=== PATIENT | female | born 1965 | race Caucasian/White ===

== ENCOUNTER 2020-08-30 09:35 | Emergency (ER) | payer OTHER, MEDICAID, SELFPAY ==
[2020-08-30] VITALS (7 sets, daily range): BP systolic 119–133; BP diastolic 63–71; PULSE 53–95; RESP 16–24; TEMP 37.2–38.3; O2SAT 95–99; BMI 32.1
--- NOTE | 2020-08-30 09:39 | ED_ITS ---
HPI - General Adult General Chief complaint: Fever Stated complaint: fever, chills, headache, Time Seen by Provider: 08/30/20 09:39 Source: patient Mode of arrival: Ambulatory Limitations: no limitations History of Present Illness HPI narrative: Patient is a 54-year-old female here for evaluation because she states she has been ?sick for days ?she states she has a history of COPD. Also history of diabetes. States she cannot find her test strips for her diabetes but is still taking all of her medications. She also has issues with constipation and was constipated a couple days ago and started taking MiraLax. She states she had several very large bowel movements. She states that she can become ?ill? after having episodes such as this but this seems to be abnormal for her. She also feels like that she is having symptoms consistent with a urinary tract infection. Describes a headache and chills. No rashes. Related Data Home Medications Medication Instructions Recorded Confirmed albuterol sulfate 90 mcg/actuation INHALATION #8 gram 07/15/18 07/15/18 aerosol inhaler cetirizine 10 mg tablet PO #30 tab 07/15/18 07/15/18 duloxetine 30 mg capsule,delayed PO #30 cap 07/15/18 07/15/18 release fluticasone propionate 50 NASAL #16 gram 07/15/18 07/15/18 mcg/actuation nasal spray,suspension gabapentin 300 mg capsule PO #90 cap 07/15/18 07/15/18 glatiramer 40 mg/mL subcutaneous SUBCUT #12 ml 07/15/18 07/15/18 syringe meloxicam 7.5 mg tablet PO #60 tab 07/15/18 07/15/18 metformin 500 mg tablet PO #120 tab 07/15/18 07/15/18 Previous Rx's Medication Instructions Recorded eletriptan 40 mg tablet 40 mg PO ONCE #10 tab 07/15/18 rizatriptan 10 mg tablet 10 mg PO ONCE #10 tab 01/20/19 promethazine 25 mg tablet 6.25 mg PO Q6H PRN #20 tab 05/12/19 zonisamide 25 mg capsule 25 mg PO ONCE #120 cap 05/12/19 amoxicillin-pot clavulanate 1 tab PO BID 10 Days #20 tab 08/30/20 [Augmentin] Review of Systems Constitutional Constitutional: Reports chills, Reports fatigue, Reports fever(s), Reports headache(s), Reports lethargy and Reports malaise Eyes Eyes: Denies change in vision ENT Ears, Nose, Mouth, and Throat: Reports headache(s) and Denies sore throat Cardiovascular Cardiovascular: Denies chest pain and Denies dyspnea Respiratory Respiratory: Reports cough and Denies dyspnea Gastrointestinal Gastrointestinal: Reports abdominal pain, Reports constipation, Reports nausea and Denies vomiting Genitourinary Genitourinary: Reports dysuria and Reports urinary urgency Genitourinary: Reports dysuria and Reports urinary urgency Musculoskeletal Musculoskeletal: Denies myalgias Integumentary/Breasts Skin/Breast: Denies lesions and Denies rash Neurologic Neurologic: Denies behavioral changes and Reports headache(s) Psychiatric Psychiatric: Denies behavioral changes Endocrine Endocrine: Reports fatigue Hematologic/Lymphatic On Anticoagulants: No Allergic/Immunologic Allergic/Immunologic: Denies urticaria Patient History Medical History COPD (chronic obstructive pulmonary disease) Diabetes Social History Smoking Status: Current every day smoker Smoking Status: Current every day smoker Exam Initial Vital Signs Initial Vital Signs: Vital Signs Temperature 99.2 F 08/30/20 09:49 Pulse Rate 53 L 08/30/20 09:49 Respiratory Rate 24 08/30/20 09:49 Blood Pressure 133/71 08/30/20 09:49 Pulse Oximetry 96 08/30/20 09:49 Const General: cooperative and comfortable Limitations: mental status not altered HENMT Head: normal to inspection and normocephalic Chest Chest: No tenderness Resp Effort & Inspection: normal respiratory effort Auscultation: clear to auscultation bilaterally Cardio Rate: regular rate Rhythm: regular rhythm GI Inspection: non-distended Palpation: soft, No firm and tender (Lower abdomen) Back/Spine/Pelvis Back: No CVA tenderness Skin Lesions: no lesions Rashes: no rashes Neuro General: patient alert, patient awake and patient oriented x3 Cognition: normal cognition Speech: speech normal Extrem General: normal to inspection and capillary refill normal Psych Appearance: grossly normal and disheveled Scores GCS [place] coma scale eye opening: Spontaneous [place] coma scale verbal response: Orientated [place] coma scale motor response: Obey commands [place] coma scale total score: 15 Course Orders Ordered: ED Orders 08/30/20 10:10 Complete Blood Count AUTO DIFF Stat Comprehensive Metabolic Panel Stat Ketones (Beta-Hydroxybutyrate) Stat Lipase Stat Magnesium Stat Phosphorous Stat 08/30/20 10:29 Urine Culture Stat 08/30/20 10:48 CT abdomen pelvis w con Stat Discontinued Medications Acetaminophen (Acetaminophen 325 Mg Tablet) 975 mg PO NOW ONE Stop: 08/30/20 13:16 Last Admin: 08/30/20 13:18 Dose: 975 mg Documented by: SHARLA Sodium Chloride (Normal Saline 0.9%) 1,000 mls @ 1,000 mls/hr IV BOLUS ONE Stop: 08/30/20 10:51 Last Infusion: 08/30/20 12:06 Dose: 0 mls/hr Documented by: Admin: 08/30/20 10:19 Dose: 1,000 mls/hr Documented by: SEKOU Ketorolac Tromethamine (Ketorolac 60 Mg/2 Ml Vial) 30 mg IV NOW ONE Stop: 08/30/20 09:53 Last Admin: 08/30/20 10:19 Dose: 30 mg Documented by: SEKOU Vital Signs Vital signs: Vital Signs - 8 hr 08/30/20 12:04 08/30/20 12:05 08/30/20 12:10 Temperature 98.9 F Pulse Rate 93 H 93 H Respiratory Rate Blood Pressure 119/63 Pulse Oximetry 96 95 08/30/20 13:18 08/30/20 13:20 Temperature 100.9 F H 100.9 F H Pulse Rate 95 H Respiratory Rate 16 Blood Pressure 130/63 Pulse Oximetry 99 Medical Decision Making Lab Data Lab results reviewed: Yes I reviewed the patient's lab results. Result diagrams: 08/30/20 10:10 08/30/20 10:10 Labs: Lab Results 08/30/20 08/30/20 08/30/20 Range/Units 09:40 09:50 10:10 WBC 8.8 (4.5-11.0) X10^3/uL RBC 3.78 L (4.0-5.2) X10^6/uL Hgb 11.3 L (12.0-16.0) g/dL Hct 33.6 L (36-46) % MCV 88.9 (80-100) fL MCH 29.9 (26-34) PG MCHC 33.7 (30-36) % RDW 13.0 (11.6-14.8) % Plt Count 165 (150-400) X10^3/uL Neut % (Auto) 83.1 H (50-75) % Lymph % (Auto) 6.8 L (25-40) % [place] % (Auto) 9.5 (3-14) % Eos % (Auto) 0.3 L (2-4) % Baso % (Auto) 0.3 (0-2) % Neut # (Auto) 7300 H (8482-1455) /uL Lymph # (Auto) 600 L (5705-7786) /uL [place] # (Auto) 800 (0-900) /uL Eos # (Auto) 0 (0-450) /uL Baso # (Auto) 0 (0-100) /uL Sodium (137-145) mmol/L Potassium (3.4-5.1) mmol/L Chloride (98-107) mmol/L Carbon Dioxide (22-32) mmol/L BUN (7-17) mg/dL Creatinine (0.52-1.04) mg/dL Estimated GFR (>60) mL/min BUN/Creatinine Ratio (6-22) Glucose (70-100) mg/dL Calcium (8.4-10.2) mg/dL Phosphorus (2.5-4.5) mg/dL Magnesium (1.6-2.3) mg/dL Total Bilirubin (0.2-1.3) mg/dL AST (14-36) IU/L ALT (<35) IU/L Alkaline Phosphatase (38-126) U/L Total Protein (6.3-8.2) g/dL Albumin (3.5-5.0) g/dL Globulin (1.7-4.1) g/dL Albumin/Globulin Ratio (1.0-2.8) Lipase (23-300) U/L Urine RBC 1-5/hpf (0-5/HPF) Urine WBC 10-30/hpf H (0-5/HPF) Ur Squamous Epith Cells 5-10 /hpf H (0-5/HPF) Urine Bacteria Moderate (10-30) H (None) Urine Yeast 0-1/hpf (None) Ur Culture Indicated? Cult not indicated Ketones (<0.27) mmol/L SARS-CoV-2 (PCR) Negative (Negative) 08/30/20 08/30/20 Range/Units 10:10 10:10 WBC (4.5-11.0) X10^3/uL RBC (4.0-5.2) X10^6/uL Hgb (12.0-16.0) g/dL Hct (36-46) % MCV (80-100) fL MCH (26-34) PG MCHC (30-36) % RDW (11.6-14.8) % Plt Count (150-400) X10^3/uL Neut % (Auto) (50-75) % Lymph % (Auto) (25-40) % [place] % (Auto) (3-14) % Eos % (Auto) (2-4) % Baso % (Auto) (0-2) % Neut # (Auto) (9772-1069) /uL Lymph # (Auto) (9218-1704) /uL [place] # (Auto) (0-900) /uL Eos # (Auto) (0-450) /uL Baso # (Auto) (0-100) /uL Sodium 129 L (137-145) mmol/L Potassium 4.3 (3.4-5.1) mmol/L Chloride 94 L (98-107) mmol/L Carbon Dioxide 26 (22-32) mmol/L BUN 16 (7-17) mg/dL Creatinine 1.22 H (0.52-1.04) mg/dL Estimated GFR 46.1 L (>60) mL/min BUN/Creatinine Ratio 13.1 (6-22) Glucose 519 H* (70-100) mg/dL Calcium 9.3 (8.4-10.2) mg/dL Phosphorus 3.6 (2.5-4.5) mg/dL Magnesium 1.5 L (1.6-2.3) mg/dL Total Bilirubin 0.5 (0.2-1.3) mg/dL AST 36 (14-36) IU/L ALT 36 H (<35) IU/L Alkaline Phosphatase 222 H (38-126) U/L Total Protein 6.8 (6.3-8.2) g/dL Albumin 3.5 (3.5-5.0) g/dL Globulin 3.3 (1.7-4.1) g/dL Albumin/Globulin Ratio 1.1 (1.0-2.8) Lipase 25 (23-300) U/L Urine RBC (0-5/HPF) Urine WBC (0-5/HPF) Ur Squamous Epith Cells (0-5/HPF) Urine Bacteria (None) Urine Yeast (None) Ur Culture Indicated? Ketones 0.09 (<0.27) mmol/L SARS-CoV-2 (PCR) (Negative) Point of Care Testing Glucose POC 417 Urine Dip Bedside Urine Glucose 1000 mg/dl Bedside Urine Bilirubin - Negative Bedside Urine Ketone - Negative Urine Specific [place] 1.010 Bedside Urine Occult Blood ++ Bedside Urine pH 6.0 Bedside Urine Protein + 30 Bedside Urine Urobilinogen - Negative Bedside Urine Nitrite - Negative Bedside Urine Leukocytes - Negative Esterase Point of care testing: Point of Care Testing Glucose POC 417 Urine Dip Bedside Urine Glucose 1000 mg/dl Bedside Urine Bilirubin - Negative Bedside Urine Ketone - Negative Urine Specific [place] 1.010 Bedside Urine Occult Blood ++ Bedside Urine pH 6.0 Bedside Urine Protein + 30 Bedside Urine Urobilinogen - Negative Bedside Urine Nitrite - Negative Bedside Urine Leukocytes - Negative Esterase Imaging Data CT scan - abdomen/pelvis: Radiologist's Impression: [address] [id number] Scan ReportSigned Patient: Mae Jolley#: [id number]: 1965Acct:[id number]/Sex: 54 / FDate of Service: 08/30/20Loc: EDAccession Number: [id number] Procedure: CT abdomen pelvis w con Ordering Provider: Francisco Gongora D.O. PROCEDURE: CT ABDOMEN PELVIS W CON INDICATIONS: Lower abdominal pain left side TECHNIQUE: After the administration of intravenous contrast, 5 mm thick sections acquired from the diaphragm to the symphysis. 5 mm coronal and sagittal reformats were acquired. For radiation dose reduction, the following was used: automated exposure control, adjustment of mA and/or kV according to patient size. COMPARISON: None. FINDINGS: Image quality: Excellent. ABDOMEN: Lung bases: Lung bases are clear. Heart size is normal. Solid organs: Liver is enlarged with steatosis. Gallbladder is unremarkable. Biliary system is non dilated. Pancreas enhances normally. Spleen is normal in size a nd enhancement. No adrenal nodules. Kidneys demonstrate mild perinephric stranding bilaterally, right greater than left. There is slight prominence of the renal collecting system on the right. There is a slight heterogeneous appearance of enhancement within the kidneys. Peritoneum and bowel: Bowel loops demonstrate normal wall thickness and caliber. No free fluid or air. Appendix is normal. Nodes and vessels: No retroperitoneal or mesenteric adenopathy by size criteria. Aorta and inferior vena cava are normal in size. Miscellaneous: No ventral hernias. PELVIS: Genitourinary: Bladder wall thickness is normal. Miscellaneous: No inguinal hernias or adenopathy. Bones: No suspicious bony lesions. No vertebral body compression fractures. IMPRESSION: 1. Mild stranding of the kidneys bilaterally with slight prominence of the renal collecting system on the right. While this could represent a recently passed stone on the right, bilateral stranding does raise suggestion of infection such as pyelonephritis, especially given questionable slight appearance of heterogeneous enhancement. Recommend clinical correlation and appropriate association with laboratory values. Dictated by: Faviola Quintero M.D. on 08/30/2020 at 10:10 Approved by: Faviola Quintero M.D. on 08/30/2020 at 10:50 [facility] Narrative Medical decision making narrative: Patient does have a benign exam. Her urinalysis has bacteria and white blood cells but also epi cells. CT scan shows stranding around bilateral kidneys. Given the findings of the CT scan and her urinalysis and her symptoms I feel treating with antibiotics is warranted. She does have multiple drug allergies. She states she can take Augmentin. A prescription was sent to the pharmacy of her choice. I feel a trial of oral antibiotics at home is warranted in her scenario although she was given strict return precautions. She expressed understanding and agreement. Discharge Plan Departure Patient Disposition: Home Clinical Impression: Urinary tract infection, Hyperglycemia Instructions: DI for Urinary Tract Infection (UTI) Activity Restrictions/Additional Instructions: Recommend that you take the antibiotics as directed. Also recommend that you take the rest your medicines as directed as well. Contact your primary provider for a follow-up. Return to the emergency department for any new or worsening symptoms Prescriptions: New amoxicillin-pot clavulanate [Augmentin] 875-125 mg tablet 1 tab PO BID 10 Days Qty: 20 RF: 0 No Action rizatriptan [Maxalt] 10 mg tablet 10 mg PO ONCE Qty: 10 RF: 2 zonisamide 25 mg capsule 25 mg PO ONCE Qty: 120 RF: 0 promethazine 25 mg tablet 6.25 mg PO Q6H PRN (Reason: nausea and vomiting) Qty: 20 RF: 2 meloxicam 7.5 mg tablet PO Qty: 60 RF: 0 ProAir HFA 90 mcg/actuation HFA aerosol inhaler INHALATION Qty: 8 RF: 0 fluticasone propionate 50 mcg/actuation spray,suspension NASAL Qty: 16 RF: 0 glatiramer 40 mg/mL syringe SUBCUT Qty: 12 RF: 0 duloxetine 30 mg capsule,delayed release(DR/EC) PO Qty: 30 RF: 0 gabapentin 300 mg capsule PO Qty: 90 RF: 0 cetirizine 10 mg tablet PO Qty: 30 RF: 0 metformin 500 mg tablet PO Qty: 120 RF: 0 eletriptan [Relpax] 40 mg tablet 40 mg PO ONCE Qty: 10 RF: 2 Referrals: Mami Morin FNP-C [Primary Care Provider] -
[2020-08-30 10:16] LABS: Bacteria Urine Moderate (10-30); RBC Urine 1-5/HPF (0-5/HPF); Squamous Epithelial Cell Urine 5-10 /HPF (0-5/HPF); WBC Urine 10-30/HPF (0-5/HPF)
[2020-08-30 10:17] LABS: Culture Indicated Urine Cult Not Indicated
[2020-08-30 10:18] LABS: Add Manual Diff / Slide Review NO; Basophils Absolute Auto 0 /uL (0-100); Basophils Percent Auto 0.3 % (0-2); Eosinophils Absolute Auto 0 /uL (0-450); Eosinophils Percent Auto 0.3 % (2-4); Hematocrit 33.6 % (36-46); Hemoglobin 11.3 g/dL (12.0-16.0); Lymphocytes Absolute Auto 600 /uL (1100-4500); Lymphocytes Percent Auto 6.8 % (25-40); Mean Corpuscular HGB Conc 33.7 % (30-36); Mean Corpuscular Hemoglobin 29.9 PG (26-34); Mean Corpuscular Volume 88.9 fL (80-100); Monocytes Absolute Auto 800 /uL (0-900); Monocytes Percent Auto 9.5 % (3-14); Neutrophils Absolute Auto 7300 /uL (1500-7000); Neutrophils Percent Auto 83.1 % (50-75); Platelet Count 165 X10^3/uL (150-400); Red Blood Cell Count 3.78 X10^6/uL (4.0-5.2); White Blood Cell Count 8.8 X10^3/uL (4.5-11.0)
[2020-08-30] MEDS: KETOROLAC 60 MG/2 ML VIAL 30 MG IV (10:19)
[2020-08-30] MEDS: SODIUM CHLORIDE 0.9% 1,000 ML 1000 ML IV (10:19)
[2020-08-30 10:20] LABS: COVID19 -Nasal RAPID Negative (Negative)
[2020-08-30 10:37] LABS: Alanine Aminotransferase 36 IU/L (<35); Albumin 3.5 g/dL (3.5-5.0); Albumin Globulin Ratio 1.1 (1.0-2.8); Alkaline Phosphatase 222 U/L (38-126); Aspartate Aminotransferase 36 IU/L (14-36); BUN Creatinine Ratio 13.1 (6-22); Bilirubin Total 0.5 mg/dL (0.2-1.3); Blood Urea Nitrogen 16 mg/dL (7-17); Calcium 9.3 mg/dL (8.4-10.2); Carbon Dioxide 26 mmol/L (22-32); Chloride 94 mmol/L (98-107); Estimated Glomerular Filt Rate 46.1 mL/min (>60); Globulin 3.3 g/dL (1.7-4.1); HEMOLYSIS < 15 (0-50); Lipase 25 U/L (23-300); Potassium 4.3 mmol/L (3.4-5.1); Sodium 129 mmol/L (137-145); Total Protein 6.8 g/dL (6.3-8.2)
[2020-08-30 10:38] LABS: Magnesium 1.5 mg/dL (1.6-2.3); Phosphorous 3.6 mg/dL (2.5-4.5)
[2020-08-30 10:40] LABS: Glucose 519 mg/dL (70-100); Ketones (Beta-Hydroxybutyrate) 0.09 mmol/L (<0.27)
--- NOTE | 2020-08-30 10:48 | DI.CT.S_ITS ---
PROCEDURE: CT ABDOMEN PELVIS W CON INDICATIONS: Lower abdominal pain left side TECHNIQUE: After the administration of intravenous contrast, 5 mm thick sections acquired from the diaphragm to the symphysis. 5 mm coronal and sagittal reformats were acquired. For radiation dose reduction, the following was used: automated exposure control, adjustment of mA and/or kV according to patient size. COMPARISON: None. FINDINGS: Image quality: Excellent. ABDOMEN: Lung bases: Lung bases are clear. Heart size is normal. Solid organs: Liver is enlarged with steatosis. Gallbladder is unremarkable. Biliary system is non dilated. Pancreas enhances normally. Spleen is normal in size and enhancement. No adrenal nodules. Kidneys demonstrate mild perinephric stranding bilaterally, right greater than left. There is slight prominence of the renal collecting system on the right. There is a slight heterogeneous appearance of enhancement within the kidneys. Peritoneum and bowel: Bowel loops demonstrate normal wall thickness and caliber. No free fluid or air. Appendix is normal. Nodes and vessels: No retroperitoneal or mesenteric adenopathy by size criteria. Aorta and inferior vena cava are normal in size. Miscellaneous: No ventral hernias. PELVIS: Genitourinary: Bladder wall thickness is normal. Miscellaneous: No inguinal hernias or adenopathy. Bones: No suspicious bony lesions. No vertebral body compression fractures. IMPRESSION: 1. Mild stranding of the kidneys bilaterally with slight prominence of the renal collecting system on the right. While this could represent a recently passed stone on the right, bilateral stranding does raise suggestion of infection such as pyelonephritis, especially given questionable slight appearance of heterogeneous enhancement. Recommend clinical correlation and appropriate association with laboratory values. Dictated by: Faviola Quintero M.D. on 08/30/2020 at 10:10 Approved by: Faviola Quintero M.D. on 08/30/2020 at 10:50
--- NOTE | 2020-08-30 11:52 | PC.NURSE ---
patient reports lower gum pain from wearing only her top dentures. she states this in a normal occurance and this time it hurts 11/12. top dentures not in place. lesoin is .7cm round raised blister like. provider notified.
[2020-08-30] MEDS: ACETAMINOPHEN 325 MG TABLET 975 MG PO (13:18)
== END 2020-08-30 13:21 | disposition home or self-care (01) ==
PROVIDERS: Emergency Provider Emergency Medicine; PCP Nurse Practitioner Family
DX: N39.0 Urinary tract infection, site not specified (principal); R73.9 Hyperglycemia, unspecified; R10.30 Lower abdominal pain, unspecified; Z20.822 Contact with and (suspected) exposure to COVID-19
CPT/HCPCS: 36415; 74177; 80053; 81003; 81015; 82009; 82962; 83690; 83735; 84100; 85025; 87077; 87086; 87186; 87635; 96361; 96374; 99284; C9803; J1885

== ENCOUNTER 2020-08-30 22:04 | Inpatient (IN) | payer MEDICAID, OTHER, SELFPAY ==
[2020-08-30] MEDS: PANTOPRAZOLE 40 MG VIAL IV (22:24)
[2020-08-30 22:25] LABS: Add Manual Diff / Slide Review NO; Basophils Absolute Auto 0 /uL (0-100); Basophils Percent Auto 0.4 % (0-2); Eosinophils Absolute Auto 0 /uL (0-450); Eosinophils Percent Auto 0.2 % (2-4); Hematocrit 30.5 % (36-46); Hemoglobin 10.4 g/dL (12.0-16.0); Lymphocytes Absolute Auto 800 /uL (1100-4500); Lymphocytes Percent Auto 7.5 % (25-40); Mean Corpuscular HGB Conc 33.9 % (30-36); Mean Corpuscular Hemoglobin 29.9 PG (26-34); Mean Corpuscular Volume 88.3 fL (80-100); Monocytes Absolute Auto 1100 /uL (0-900); Monocytes Percent Auto 10.2 % (3-14); Neutrophils Absolute Auto 8700 /uL (1500-7000); Neutrophils Percent Auto 81.7 % (50-75); Platelet Count 154 X10^3/uL (150-400); Red Blood Cell Count 3.46 X10^6/uL (4.0-5.2); Red Cell Distribution Width 13.5 % (11.6-14.8); White Blood Cell Count 10.7 X10^3/uL (4.5-11.0)
[2020-08-30] MEDS: SODIUM CHLORIDE 0.9% 1,000 ML 125 ML IV (22:25)
[2020-08-30 22:29] VITALS: BP 138/63; PULSE 89; RESP 20; TEMP 36.6; O2SAT 95
[2020-08-30 22:35] LABS: Lactate (Lactic Acid) 1.1 mmol/L (0.7-2.1)
[2020-08-30 22:36] LABS: Alanine Aminotransferase 29 IU/L (<35); Alkaline Phosphatase 180 U/L (38-126); Aspartate Aminotransferase 27 IU/L (14-36); BUN Creatinine Ratio 12.5 (6-22); Bilirubin Total 0.5 mg/dL (0.2-1.3); Blood Urea Nitrogen 16 mg/dL (7-17); Calcium 8.8 mg/dL (8.4-10.2); Carbon Dioxide 23 mmol/L (22-32); Chloride 98 mmol/L (98-107); Estimated Glomerular Filt Rate 43.6 mL/min (>60); Globulin 3.1 g/dL (1.7-4.1); Glucose 441 mg/dL (70-100); HEMOLYSIS < 15 (0-50); Potassium 3.9 mmol/L (3.4-5.1); Sodium 129 mmol/L (137-145); Total Protein 6.1 g/dL (6.3-8.2)
[2020-08-30 22:45] VITALS: PULSE 90; O2SAT 93
[2020-08-30 22:48] LABS: INR 1.3 (0.9-1.3); Prothrombin Time 14.9 SECONDS (10.1-12.7)
[2020-08-30 22:51] LABS: PTT Partial Thromboplastin Tim 30 SECONDS (26.4-36.2)
[2020-08-30 23:00] VITALS: BP 142/63; PULSE 90; O2SAT 92
--- NOTE | 2020-08-30 23:05 | ED.ABDPAIN ---
HPI - Abdominal Pain General Chief Complaint: Abdominal Pain Stated Complaint: Rt flank pain/ blood in stool Time Seen by Provider: 08/30/20 22:05 Source: patient Mode of arrival: EMS Limitations: no limitations History of Present Illness HPI narrative: 54-year-old female daily smoker with history of migraines and multiple sclerosis presents for the 2nd time today in the chief complaint of significant right-sided flank pain and poor appetite. She was seen and evaluated earlier in found to have elevated blood glucose and imaging suggesting pyelonephritis. She went home for a few hours and now states that she is having black stool, when she wipes and when she urinates. She denies any use of blood thinners or any significant alcohol history. She denies any Pepto-Bismol. She states her pain is still there and seemed to be worse when she moves and improves with rest. She states she has a poor appetite and admits to nausea but no vomiting MD complaint: abdominal pain and flank pain Onset (ago): hour(s) Pain Consistency: constant Location: R flank Severity: moderate Quality: cramping and aching Relieving factors: rest Exacerbating factors: movement Associated symptoms: nausea Related Data Home Medications Medication Instructions Recorded Confirmed albuterol sulfate 90 mcg/actuation INHALATION #8 gram 07/15/18 07/15/18 aerosol inhaler cetirizine 10 mg tablet PO #30 tab 07/15/18 07/15/18 duloxetine 30 mg capsule,delayed PO #30 cap 07/15/18 07/15/18 release fluticasone propionate 50 NASAL #16 gram 07/15/18 07/15/18 mcg/actuation nasal spray,suspension gabapentin 300 mg capsule PO #90 cap 07/15/18 07/15/18 glatiramer 40 mg/mL subcutaneous SUBCUT #12 ml 07/15/18 07/15/18 syringe meloxicam 7.5 mg tablet PO #60 tab 07/15/18 07/15/18 metformin 500 mg tablet PO #120 tab 07/15/18 07/15/18 Previous Rx's Medication Instructions Recorded eletriptan 40 mg tablet 40 mg PO ONCE #10 tab 07/15/18 rizatriptan 10 mg tablet 10 mg PO ONCE #10 tab 01/20/19 promethazine 25 mg tablet 6.25 mg PO Q6H PRN #20 tab 05/12/19 zonisamide 25 mg capsule 25 mg PO ONCE #120 cap 05/12/19 amoxicillin-pot clavulanate 1 tab PO BID 10 Days #20 tab 08/30/20 [Augmentin] Allergies Allergy/AdvReac Type Severity Reaction Status Date / Time acetaminophen [From Vicodin] Allergy Verified 08/30/20 23:18 cephalexin Allergy Verified 08/30/20 23:18 ciprofloxacin [From Cipro] Allergy Verified 08/30/20 23:18 codeine Allergy Verified 08/30/20 23:18 doxycycline Allergy Verified 08/30/20 23:18 hydrocodone [From Vicodin] Allergy Verified 08/30/20 23:18 penicillin V Allergy Verified 08/30/20 23:18 sulfamethoxazole Allergy Verified 08/30/20 23:18 [From Bactrim] trimethoprim [From Bactrim] Allergy Verified 08/30/20 23:18 Review of Systems Constitutional Constitutional: Denies chills, Denies fatigue, Denies fever(s), Denies frequent falls, Denies lethargy and Denies weakness Eyes Eyes: Denies change in vision, Denies eye discharge, Denies irritation and Denies loss of vision ENT Ears, Nose, Mouth, and Throat: Denies change in voice, Denies dizziness, Denies neck pain, Denies sore throat and Denies throat swelling Cardiovascular Cardiovascular: Denies chest pain, Denies irregular heart rhythm, Denies lightheadedness, Denies palpitations, Denies dyspnea, Denies dyspnea on exertion and Denies orthopnea Respiratory Respiratory: Denies cough, Denies dyspnea, Denies dyspnea on exertion and Denies wheezing Gastrointestinal Gastrointestinal: Denies abdominal pain, Denies change in bowel habits, Denies diarrhea, Denies nausea and Denies vomiting Genitourinary Genitourinary: Reports flank pain Genitourinary: Reports flank pain Musculoskeletal Musculoskeletal: Denies neck pain and Denies numbness Integumentary/Breasts Skin/Breast: Denies pruritus, Denies erythema, Denies rash and Denies wounds Neurologic Neurologic: Denies behavioral changes, Denies confusion, Denies dizziness, Denies frequent falls, Denies loss of vision, Denies numbness and Denies weakness Psychiatric Psychiatric: Denies anxiety, Denies behavioral changes, Denies confusion, Denies depression, Denies homicidal ideation and Denies suicidal ideation Endocrine Endocrine: Denies fatigue, Denies flushing and Denies palpitations Hematologic/Lymphatic Hematologic/Lymphatic: Denies easy bruising Allergic/Immunologic Allergic/Immunologic: Denies urticaria, Denies throat swelling and Denies wheezing Patient History Medical History (Updated 08/31/20 @ 04:21 by ANNEL Pinedo) Cervical spine arthritis with nerve pain COPD (chronic obstructive pulmonary disease) Depression HPV (human papilloma virus) anogenital infection Hyperlipidemia Hypertension Insulin dependent type 2 diabetes mellitus Multiple sclerosis Surgical History (Updated 08/31/20 @ 04:21 by ANNEL Pinedo) Status post decompression of compartment syndrome Family History (Updated 08/31/20 @ 04:22 by ANNEL Pinedo) Father Medical history unknown Mother Alzheimer's dementia Grandmother Alzheimer's dementia Brother Diabetes mellitus Brain tumor Social History household members: children Smoking Status: Current every day smoker Smoking Status: Current every day smoker tobacco type: cigarettes alcohol intake frequency: 0-2 drinks per day Substance Use Type: methamphetamine Exam Narrative Exam Narrative: GENERAL: [54] year old patient appears stated age. Well-nourished, well-developed patient, in mild distress. GCS 15 HEAD: Atraumatic. Normocephalic. EYES: Pupils equal round and reactive. Extraocular motions intact. No scleral icterus. No injection or drainage. ENT: Nose without bleeding, purulent drainage. Throat without erythema, tonsillar hypertrophy or exudate. Airway patent. NECK: Trachea midline. Non tender CARDIOVASCULAR: Regular rate and rhythm without murmurs, gallops, or rubs. RESPIRATORY: Clear to auscultation. Breath sounds equal bilaterally. No wheezes, rales, or rhonchi. GASTROINTESTINAL: Abdomen soft, right flank tender to palpate, nondistended. RECTAL: Stool is dark but not grossly bloody, heme-negative. Perform with patient permission and female nursing vp customer development at the bedside EXTREMITIES: No edema or joint tenderness. BACK: Nontender without deformity or crepitance. No flank tenderness. NEURO: AOx3. SKIN: No rash or erythema of visible areas Initial Vital Signs Initial Vital Signs: Vital Signs Temperature 97.9 F 08/30/20 22:29 Pulse Rate 89 08/30/20 22:29 Respiratory Rate 20 08/30/20 22:29 Blood Pressure 138/63 08/30/20 22:29 Pulse Oximetry 95 08/30/20 22:29 Course Orders Ordered: ED Orders 08/30/20 22:15 Complete Blood Count AUTO DIFF Stat Comprehensive Metabolic Panel Stat Lactate (Lactic Acid) Stat Partial Thromboplastin Time Stat Prothrombin Time INR Stat 08/30/20 22:35 Blood Culture Stat Type and Screen Stat 08/30/20 23:11 US abdomen limited Stat 08/30/20 23:55 Basic Metabolic Panel Stat Hemoglobin and Hematocrit Stat Acetaminophen (Acetaminophen 325 Mg Tablet) 650 mg PO Q6HR PRN PRN Reason: Fever/Mild Pain (1-3) Last Admin: 08/31/20 03:19 Dose: 650 mg Documented by: MIRA Albuterol (Albuterol 2.5 Mg/3 Ml Neb (Adult)) 2.5 mg INH [id number] PRN PRN Reason: Bronchodilation Albuterol (Albuterol Hfa Mdi 60 Puff/8 Gm Inhaler) 2 puff INH RTQ4HR PRN PRN Reason: Shortness Of Breath Sodium Chloride (Normal Saline 0.9%) 1,000 mls @ 125 mls/hr IV CONT JORGE Last Admin: 08/31/20 03:19 Dose: 125 mls/hr Documented by: MIRA Ertapenem 1 gm/ Sodium (Chloride) 100 mls @ 200 mls/hr IV Q24H JORGE Last Infusion: 08/31/20 04:10 Dose: 0 mls/hr Documented by: Admin: 08/31/20 03:38 Dose: 200 mls/hr Documented by: MIRA Insulin Glargine (Insulin Glargine 100 Unit/Ml 3ml Pen) 20 unit SUBCUT BEDTIME [facility] Insulin Human Lispro (Insulin Lispro 100 Unit/Ml 3ml Vial) 0 unit SUBCUT ACHS JORGE; Protocol Metoclopramide HCl (Metoclopramide 10 Mg/2 Ml Inj) 10 mg IV Q6HR PRN PRN Reason: Nausea And Vomiting Last Admin: 08/31/20 03:37 Dose: 10 mg Documented by: MIRA Naloxone HCl (Naloxone 0.4 Mg/Ml Vial) 0.2 mg IV Q2MIN PRN PRN Reason: Opiate Reversal Ondansetron HCl (Ondansetron 4 Mg/2 Ml Inj) 4 mg IV Q6HR [facility] Oxycodone HCl (Oxycodone Ir 5 Mg Tablet) 5 mg PO Q4HR PRN PRN Reason: Pain, Moderate (4-6) Last Admin: 08/31/20 03:19 Dose: 5 mg Documented by: MIRA Oxycodone HCl (Oxycodone Ir 10 Mg Tablet) 10 mg PO Q4HR PRN PRN Reason: Pain, Severe (7-10) Pantoprazole Sodium (Pantoprazole 40 Mg Vial) 40 mg IV BID JORGE Discontinued Medications Sodium Chloride (Normal Saline 0.9%) 1,000 mls @ 125 mls/hr IV CONT JORGE Last Infusion: 08/31/20 01:41 Dose: 0 mls/hr Documented by: Infusion: 08/30/20 23:13 Dose: 1,000 mls/hr Documented by: Admin: 08/30/20 22:25 Dose: 125 mls/hr Documented by: EVELYN Ketorolac Tromethamine (Ketorolac 60 Mg/2 Ml Vial) 15 mg IV NOW ONE Stop: 08/30/20 23:46 Last Admin: 08/30/20 23:52 Dose: 15 mg Documented by: DESHAWN Pantoprazole Sodium (Pantoprazole 40 Mg Vial) 40 mg IV NOW ONE Stop: 08/30/20 22:07 Last Admin: 08/30/20 22:24 Dose: 40 mg Documented by: EVELYN Consultations Consultation #1: call to Dr. Alba given report of dark stool with dropping hematocrit. We did discuss patient is low risk for GI bleed and Hemoccult negative exam. He is happy to consult should hospitalist which Consultation #2: Hospitalist happy to accept Vital Signs Vital signs: Vital Signs - 8 hr 08/30/20 22:29 08/30/20 22:45 08/30/20 23:00 Temperature 97.9 F Pulse Rate 89 90 90 Respiratory Rate 20 Blood Pressure 138/63 142/63 H Pulse Oximetry 95 93 92 08/30/20 23:30 08/31/20 00:07 08/31/20 00:30 Temperature Pulse Rate 88 91 H 85 Respiratory Rate Blood Pressure 130/65 Pulse Oximetry 94 95 92 08/31/20 01:00 08/31/20 01:08 08/31/20 01:30 Temperature Pulse Rate 86 88 86 Respiratory Rate Blood Pressure 106/55 L Pulse Oximetry 91 92 91 08/31/20 01:31 Temperature Pulse Rate 85 Respiratory Rate Blood Pressure 113/58 L Pulse Oximetry 91 MDM - Abdominal Pain Lab Data Result diagrams: 08/30/20 23:55 08/30/20 23:55 Labs: Lab Results 08/30/20 08/30/20 08/30/20 Range/Units 22:15 22:15 22:15 WBC 10.7 (4.5-11.0) X10^3/uL RBC 3.46 L (4.0-5.2) X10^6/uL Hgb 10.4 L (12.0-16.0) g/dL Hct 30.5 L (36-46) % MCV 88.3 (80-100) fL MCH 29.9 (26-34) PG MCHC 33.9 (30-36) % RDW 13.5 (11.6-14.8) % Plt Count 154 (150-400) X10^3/uL Neut % (Auto) 81.7 H (50-75) % Lymph % (Auto) 7.5 L (25-40) % Wharton % (Auto) 10.2 (3-14) % Eos % (Auto) 0.2 L (2-4) % Baso % (Auto) 0.4 (0-2) % Neut # (Auto) 8700 H (8934-6166) /uL Lymph # (Auto) 800 L (4655-4237) /uL Wharton # (Auto) 1100 H (0-900) /uL Eos # (Auto) 0 (0-450) /uL Baso # (Auto) 0 (0-100) /uL PT 14.9 H (10.1-12.7) SECONDS INR 1.3 (0.9-1.3) APTT 30 (26.4-36.2) SECONDS Sodium 129 L (137-145) mmol/L Potassium 3.9 (3.4-5.1) mmol/L Chloride 98 (98-107) mmol/L Carbon Dioxide 23 (22-32) mmol/L BUN 16 (7-17) mg/dL Creatinine 1.28 H (0.52-1.04) mg/dL Estimated GFR 43.6 L (>60) mL/min BUN/Creatinine Ratio 12.5 (6-22) Glucose 441 H (70-100) mg/dL Lactate (0.7-2.1) mmol/L Calcium 8.8 (8.4-10.2) mg/dL Magnesium (1.6-2.3) mg/dL Total Bilirubin 0.5 (0.2-1.3) mg/dL AST 27 (14-36) IU/L ALT 29 (<35) IU/L Alkaline Phosphatase 180 H (38-126) U/L Total Protein 6.1 L (6.3-8.2) g/dL Albumin 3.0 L (3.5-5.0) g/dL Globulin 3.1 (1.7-4.1) g/dL Albumin/Globulin Ratio 1.0 (1.0-2.8) Blood Type Antibody Screen 08/30/20 08/30/20 08/30/20 Range/Units 22:15 22:35 23:55 WBC (4.5-11.0) X10^3/uL RBC (4.0-5.2) X10^6/uL Hgb 10.0 L (12.0-16.0) g/dL Hct 29.3 L (36-46) % MCV (80-100) fL MCH (26-34) PG MCHC (30-36) % RDW (11.6-14.8) % Plt Count (150-400) X10^3/uL Neut % (Auto) (50-75) % Lymph % (Auto) (25-40) % Wharton % (Auto) (3-14) % Eos % (Auto) (2-4) % Baso % (Auto) (0-2) % Neut # (Auto) (1748-3740) /uL Lymph # (Auto) (6484-8214) /uL Wharton # (Auto) (0-900) /uL Eos # (Auto) (0-450) /uL Baso # (Auto) (0-100) /uL PT (10.1-12.7) SECONDS INR (0.9-1.3) APTT (26.4-36.2) SECONDS Sodium (137-145) mmol/L Potassium (3.4-5.1) mmol/L Chloride (98-107) mmol/L Carbon Dioxide (22-32) mmol/L BUN (7-17) mg/dL Creatinine (0.52-1.04) mg/dL Estimated GFR (>60) mL/min BUN/Creatinine Ratio (6-22) Glucose (70-100) mg/dL Lactate 1.1 (0.7-2.1) mmol/L Calcium (8.4-10.2) mg/dL Magnesium (1.6-2.3) mg/dL Total Bilirubin (0.2-1.3) mg/dL AST (14-36) IU/L ALT (<35) IU/L Alkaline Phosphatase (38-126) U/L Total Protein (6.3-8.2) g/dL Albumin (3.5-5.0) g/dL Globulin (1.7-4.1) g/dL Albumin/Globulin Ratio (1.0-2.8) Blood Type O Negative Antibody Screen Negative 08/30/20 08/30/20 Range/Units 23:55 23:55 WBC (4.5-11.0) X10^3/uL RBC (4.0-5.2) X10^6/uL Hgb (12.0-16.0) g/dL Hct (36-46) % MCV (80-100) fL MCH (26-34) PG MCHC (30-36) % RDW (11.6-14.8) % Plt Count (150-400) X10^3/uL Neut % (Auto) (50-75) % Lymph % (Auto) (25-40) % Wharton % (Auto) (3-14) % Eos % (Auto) (2-4) % Baso % (Auto) (0-2) % Neut # (Auto) (7951-8908) /uL Lymph # (Auto) (1812-1739) /uL Wharton # (Auto) (0-900) /uL Eos # (Auto) (0-450) /uL Baso # (Auto) (0-100) /uL PT (10.1-12.7) SECONDS INR (0.9-1.3) APTT (26.4-36.2) SECONDS Sodium 131 L (137-145) mmol/L Potassium 4.1 (3.4-5.1) mmol/L Chloride 101 (98-107) mmol/L Carbon Dioxide 25 (22-32) mmol/L BUN 16 (7-17) mg/dL Creatinine 1.32 H (0.52-1.04) mg/dL Estimated GFR 42.1 L (>60) mL/min BUN/Creatinine Ratio 12.1 (6-22) Glucose 377 H (70-100) mg/dL Lactate (0.7-2.1) mmol/L Calcium 8.5 (8.4-10.2) mg/dL Magnesium 1.6 (1.6-2.3) mg/dL Total Bilirubin (0.2-1.3) mg/dL AST (14-36) IU/L ALT (<35) IU/L Alkaline Phosphatase (38-126) U/L Total Protein (6.3-8.2) g/dL Albumin (3.5-5.0) g/dL Globulin (1.7-4.1) g/dL Albumin/Globulin Ratio (1.0-2.8) Blood Type Antibody Screen Point of care testing: Point of Care Testing Stool Occult Blood Negative Glucose POC 451 MDM Narrative Medical decision making narrative: 54-year-old female with 2nd visit of the day for right flank pain poor appetite nausea, vomiting and pyelonephritis. Upon return she states she has been having dark and tarry stool in the absence of any obvious risk and no history of GI bleed. She has been observed and has reassuring findings on imaging, however her hemoglobin continues to drop, creatinine rises, she has required multiple pain medications. She requires hospitalization for stabilization of her condition and further evaluation. Discharge Plan Departure Patient Disposition: Admitted as Observation Clinical Impression: Pyelonephritis, Intractable abdominal pain, Acute GI bleeding Admit Date/Time: 08/31/20 01:52 Admit Provider: Omer Damico
--- NOTE | 2020-08-30 23:11 | DI.US.S_ITS ---
PROCEDURE: US ABDOMEN LIMITED INDICATIONS: EPIGASTRIC PAIN TECHNIQUE: Real-time focused scanning was performed of the abdomen, with image documentation. COMPARISON: [facility], CT, CT ABDOMEN PELVIS W CON, 08/30/2020, 11:02. FINDINGS: Liver is normal in size and homogeneous in echotexture. Gallbladder is sonographically normal. No gallstones. No gallbladder wall thickening. Gallbladder wall measures 2.0 millimeters. No pericholecystic fluid. No sonographic Gallagher sign. Biliary tree is nondilated. Common bile duct measures 6.1 millimeters. Pancreas is sonographically normal. IMPRESSION: No sonographic evidence of cholelithiasis or cholecystitis. If there is continued clinical concern for cholecystitis, a nuclear medicine HIDA scan should be considered for further evaluation. Dictated by: Sena Calvillo MD, PhD on 08/31/2020 at 8:13 Approved by: Sena Calvillo MD, PhD on 08/31/2020 at 8:15
[2020-08-30 23:30] VITALS: BP 130/65; PULSE 88; O2SAT 94
[2020-08-30] MEDS: KETOROLAC 60 MG/2 ML VIAL 15 MG IV (23:52)
[2020-08-31] VITALS (15 sets, daily range): BP systolic 106–158; BP diastolic 55–85; PULSE 83–115; RESP 16–24; TEMP 35.8–38.3; O2SAT 91–98; BMI 30.6
[2020-08-31 00:03] LABS: Hematocrit 29.3 % (36-46)
[2020-08-31 00:14] LABS: BUN Creatinine Ratio 12.1 (6-22); Blood Urea Nitrogen 16 mg/dL (7-17); Calcium 8.5 mg/dL (8.4-10.2); Carbon Dioxide 25 mmol/L (22-32); Chloride 101 mmol/L (98-107); Estimated Glomerular Filt Rate 42.1 mL/min (>60); Glucose 377 mg/dL (70-100); HEMOLYSIS < 15 (0-50); Potassium 4.1 mmol/L (3.4-5.1); Sodium 131 mmol/L (137-145)
[2020-08-31 02:43] LABS: Magnesium 1.6 mg/dL (1.6-2.3)
--- NOTE | 2020-08-31 03:16 | P.HP_ITS ---
History of Present Illness History of Present Illness Date Patient Seen: 08/31/20 Time Patient Seen: 02:37 Chief complaint: Rt flank pain/ blood in stool Narrative: Ms. Sheyla Jolley is a 54-year-old female who was a current daily smoker with a past medical history significant for multiple sclerosis manifested with cognitive impairment, hypertension, hyperlipidemia, COPD, insulin-dependent diabetes type 2, cervical arthritis with intermittent left arm paresthesias, anxiety and depression who presents to the ER for worsening flank pain and nausea. The patient was seen earlier on 08/30/2020 with initial triage reporting flu like symptoms for 1 week with shortness of breath, constipation and fever. The patient was found to have hyperglycemia with a glucose of 519 with an anion gap of 9, positive urinalysis for white cells, blood and moderate bacteria as well as a CT showing bilateral perinephric stranding consistent with pyelonephritis. She was discharged on Augmentin in the setting of multiple antibiotic allergies. The patient returns this evening with increasing flank and abdominal pain and nausea. She distally reports having black stools described as ?slimy?. The patient endorses having fevers and chills and headache, denies dizziness or visual changes, nasal congestion or sore throat. She reports no complaints chest pain or palpitations. She has a history of COPD with chronic dry nonproductive cough however denies shortness of breath or wheezing. She reports epigastric discomfort and nausea stating that she does not vomit has had no hematemesis. She has had dark stools for 2-3 days and endorses taking meloxicam and ibuprofen for pain. She denies overt urinary symptoms of urgency frequency or burning and has had no hematuria. Upon arrival to the ER the patient has a temperature 97.9?, heart rate of 89, blood pressure 138/63, respiratory rate of 20 and oxygen saturation 95%. The patient had a CT of the abdomen and pelvis earlier in the day which denotes mild perinephritic stranding bilateral kidneys right greater than left and prominence of the right renal collecting system without evidence of renal calculi. A bdominal ultrasound is obtained which finds no gallstones or sludge no evidence of acute cholecystitis, mild dilated common bile duct at 6-7 mm, hepatomegaly with mild fatty liver curse review of the right kidney demonstrates no evidence of hydronephrosis. On laboratory analysis the patient has white count of 10.7 with elevated neutrophils at a 1700, monocytes at 1100. She has a PT of 14.9 and INR 1.3 and a PTT of 30. Her chemistries remarkable for mild hyponatremia 131 with a BUN of 16 and creatinine 1.32. Her nonfasting glucose is 377. Subsequent point of care glucose is 451. She has a total bilirubin 0.5, AST of 27 ALT of 29 and alkaline phosphatase of 180. Lactic acid is 1.1. Urinalysis from earlier in the day finds specific gravity of 1.010, positive for wbc's, blood, protein and moderate bacteria and glucose, negative for leukocyte esterase or nitrites. COVID screening is negative. In the ER the patient is started on Protonix 40 mg IV and type and screen is obtained. Dr. Alba general surgery is contacted regarding the patient and agrees to consult. The patient is admitted to the hospitalist service for GI bleed and pyelonephritis. Patient History Medical History (Updated 08/31/20 @ 04:21 by ANNEL Pinedo) Cervical spine arthritis with nerve pain COPD (chronic obstructive pulmonary disease) Depression HPV (human papilloma virus) anogenital infection Hyperlipidemia Hypertension Insulin dependent type 2 diabetes mellitus Multiple sclerosis Surgical History (Updated 08/31/20 @ 04:21 by ANNEL Pinedo) Status post decompression of compartment syndrome Family & Social History Family History (Updated 08/31/20 @ 04:22 by ANNEL Pinedo) Father Medical history unknown Mother Alzheimer's dementia Grandmother Alzheimer's dementia Brother Diabetes mellitus Brain tumor Social History: household members children Prior Living Arrangements Apartment/Condo Safety & Behavioral: Feels Safe in Current Yes Environment Been Physically Hurt or No Threatened By a Person Suicidal Ideation Description None Suicide Plan Description No Plan Tobacco & Substance use: Tobacco type cigarettes Smoking Status Current every day smoker Smoking packs per day 1 alcohol intake frequency 0-2 drinks per day Substance Use Type methamphetamine Meds Home Medications and Allergies Home Medications Medication Instructions Recorded Confirmed Type albuterol sulfate 90 mcg/actuation INHALATION #8 gram 07/15/18 07/15/18 History aerosol inhaler cetirizine 10 mg tablet PO #30 tab 07/15/18 07/15/18 History duloxetine 30 mg capsule,delayed PO #30 cap 07/15/18 07/15/18 History release eletriptan 40 mg tablet 40 mg PO ONCE #10 tab 07/15/18 Rx fluticasone propionate 50 NASAL #16 gram 07/15/18 07/15/18 History mcg/actuation nasal spray,suspension gabapentin 300 mg capsule PO #90 cap 07/15/18 07/15/18 History glatiramer 40 mg/mL subcutaneous SUBCUT #12 ml 07/15/18 07/15/18 History syringe meloxicam 7.5 mg tablet PO #60 tab 07/15/18 07/15/18 History metformin 500 mg tablet PO #120 tab 07/15/18 07/15/18 History rizatriptan 10 mg tablet 10 mg PO ONCE #10 tab 01/20/19 Rx promethazine 25 mg tablet 6.25 mg PO Q6H PRN #20 tab 05/12/19 Rx zonisamide 25 mg capsule 25 mg PO ONCE #120 cap 05/12/19 Rx amoxicillin-pot clavulanate 1 tab PO BID 10 Days #20 tab 08/30/20 Rx [Augmentin] Allergies Allergy/AdvReac Type Severity Reaction Status Date / Time acetaminophen [From Vicodin] Allergy Verified 08/30/20 23:18 cephalexin Allergy Verified 08/30/20 23:18 ciprofloxacin [From Cipro] Allergy Verified 08/30/20 23:18 codeine Allergy Verified 08/30/20 23:18 doxycycline Allergy Verified 08/30/20 23:18 hydrocodone [From Vicodin] Allergy Verified 08/30/20 23:18 penicillin V Allergy Verified 08/30/20 23:18 sulfamethoxazole Allergy Verified 08/30/20 23:18 [From Bactrim] trimethoprim [From Bactrim] Allergy Verified 08/30/20 23:18 Review of Systems Review of Systems ROS: Yes All systems reviewed with the patient and are negative except as otherwise documented Exam Vital Signs (past 8 hours): - 08/30/20 22:29 08/30/20 22:45 08/30/20 23:00 Temperature 97.9 F Pulse Rate 89 90 90 Respiratory Rate 20 Blood Pressure 138/63 142/63 H Pulse Oximetry 95 93 92 08/30/20 23:30 08/31/20 00:07 08/31/20 00:30 Temperature Pulse Rate 88 91 H 85 Respiratory Rate Blood Pressure 130/65 Pulse Oximetry 94 95 92 08/31/20 01:00 08/31/20 01:08 08/31/20 01:30 Temperature Pulse Rate 86 88 86 Respiratory Rate Blood Pressure 106/55 L Pulse Oximetry 91 92 91 08/31/20 01:31 08/31/20 02:32 08/31/20 02:39 Temperature 96.5 F L Pulse Rate 85 83 83 Respiratory Rate 20 18 Blood Pressure 113/58 L 115/65 Pulse Oximetry 91 96 96 Oxygen Delivery Method Room Air Narrative Exam Narrative: GENERAL APPEARANCE: well developed, obese female with BMI of 30.6, who appears older than her stated age, is restless and appears uncomfortable. HEENT: Normocephalic, PERRLA, conjunctiva clear, EOMs intact without nystagmus, abrasion midline upper lip, mucous membranes are moist and pink. NECK/THYROID: neck supple, no JVD, no thyromegaly, trachea midline. LYMPH NODES: no cervical or supraclavicular lymphadenopathy. SKIN: Pale, warm and dry, no visible lesions, rashes, ulcerations or petechiae. HEART: regular rate and rhythm, S1-S2, no murmur, no rubs or gallops, 1+ bilateral dorsalis pedis pulses, no pedal edema LUNGS: Soledad rounds clear but diminished bilaterally, no coarseness crackles or wheezing, dry nonproductive cough present CHEST: Symmetrical movement, no accessory muscle use, good tidal volume. ABDOMEN: Soft, dull to percussion, epigastric tenderness and bilateral lower abdominal tenderness on palpation, no organomegaly, no suprapubic tenderness, active bowel tones. BACK: Midline low thoracic upper lumbar spine pain on palpation EXTREMITIES: moves all extremities, strength is 5/5 and symmetrical, no deformities or joint effusions. NEUROLOGIC: AAO x4, no focal neurologic deficits, cranial nerves II-XII grossly intact, decreased sensation bilateral feet, hearing grossly normal to speech. PSYCH: Poor eye contact, increased speech tempo, tangential thought, cooperative, denies suicidal ideation or thoughts of self-harm. Objective Labs Result Diagrams: 08/30/20 23:55 08/30/20 23:55 Labs: Laboratory Results - last 24 hr 08/30/20 08/30/20 08/30/20 22:15 22:15 22:15 WBC 10.7 RBC 3.46 L Hgb 10.4 L Hct 30.5 L MCV 88.3 MCH 29.9 MCHC 33.9 RDW 13.5 Plt Count 154 Neut % (Auto) 81.7 H Lymph % (Auto) 7.5 L [place] % (Auto) 10.2 Eos % (Auto) 0.2 L Baso % (Auto) 0.4 Neut # (Auto) 8700 H Lymph # (Auto) 800 L [place] # (Auto) 1100 H Eos # (Auto) 0 Baso # (Auto) 0 PT 14.9 H INR 1.3 APTT 30 Sodium 129 L Potassium 3.9 Chloride 98 Carbon Dioxide 23 BUN 16 Creatinine 1.28 H Estimated GFR 43.6 L BUN/Creatinine Ratio 12.5 Glucose 441 H Lactate Calcium 8.8 Magnesium Total Bilirubin 0.5 AST 27 ALT 29 Alkaline Phosphatase 180 H Total Protein 6.1 L Albumin 3.0 L Globulin 3.1 Albumin/Globulin Ratio 1.0 Blood Type Antibody Screen 08/30/20 08/30/20 08/30/20 22:15 22:35 23:55 WBC RBC Hgb 10.0 L Hct 29.3 L MCV MCH MCHC RDW Plt Count Neut % (Auto) Lymph % (Auto) [place] % (Auto) Eos % (Auto) Baso % (Auto) Neut # (Auto) Lymph # (Auto) [place] # (Auto) Eos # (Auto) Baso # (Auto) PT INR APTT Sodium Potassium Chloride Carbon Dioxide BUN Creatinine Estimated GFR BUN/Creatinine Ratio Glucose Lactate 1.1 Calcium Magnesium Total Bilirubin AST ALT Alkaline Phosphatase Total Protein Albumin Globulin Albumin/Globulin Ratio Blood Type O Negative Antibody Screen Negative 08/30/20 08/30/20 23:55 23:55 WBC RBC Hgb Hct MCV MCH MCHC RDW Plt Count Neut % (Auto) Lymph % (Auto) [place] % (Auto) Eos % (Auto) Baso % (Auto) Neut # (Auto) Lymph # (Auto) [place] # (Auto) Eos # (Auto) Baso # (Auto) PT INR APTT Sodium 131 L Potassium 4.1 Chloride 101 Carbon Dioxide 25 BUN 16 Creatinine 1.32 H Estimated GFR 42.1 L BUN/Creatinine Ratio 12.1 Glucose 377 H Lactate Calcium 8.5 Magnesium 1.6 Total Bilirubin AST ALT Alkaline Phosphatase Total Protein Albumin Globulin Albumin/Globulin Ratio Blood Type Antibody Screen Assessment & Plan Assessment & Plan narrative: This patient is a 54-year-old female who was a current daily smoker with a past medical history significant for multiple sclerosis manifested with cognitive impairment, hypertension, hyperlipidemia, COPD, insulin-dependent diabetes type 2, cervical arthritis with intermittent left arm paresthesias, anxiety and depression who presents to the ER for worsening symptoms of pyelonephritis with worsening flank pain, fevers and nausea. 1. Pyelonephritis, bilateral, present on admission, active. -CT identifies bilateral perinephritic stranding right greater than left with UTI positive for to PVCs moderate bacteria. -the patient has white count of 10.7 with neutrophils of a 1700 and monocytes 1100. -the patient was started on Augmentin earlier today however was not started. Patient has multiple drug allergies including cephalosporins penicillins sulfa and Cipro. The patient is started on meropenem 1 g IV daily. -patient states she can take Tylenol which is ordered 650 mg every 4 hours needed for fever or mild pain and oxycodone 5-10 mg by mouth every 4 hours as needed for pain. -recheck CBC and renal function on chemistries in the morning. 2. Upper GI bleed, present on admission, active -the patient endorses 2-3 days of black tarry stools described as ?slimy?. She has epigastric pain on palpation. She has been taking ibuprofen as well as meloxicam to manage her pain. -hemoglobin this morning was 11.3 -ordered Protonix 40 mg twice daily. -ordered clear liquid diet pending surgical evaluation. -requested Dr. Alba consult, we appreciate his evaluation recommendations. 3. Insulin-dependent diabetes uncontrolled with hyperglycemia, present on admission, active. -the patient states her depression has been worse lately she has been noncompliant with her insulin regimen. She is to take Lantus 20 units daily ho wever her uses been sporadic. -her serum glucose on her morning visit to the ER was 519. This evening her serum glucose is 377 with a follow-up point of care check at 451. Ordered glucose check upon arrival to the inpatient unit which is 326. -ordered fingerstick blood sugars a.c. and hs with low-dose correctional insulin. -will continue the patient's home regimen of Lantus 20 units daily. -diet will be clear liquid small consistent carbohydrate. -normal saline 125 cc/hour. 4. COPD, chronic, stable -patient denies shortness of breath or wheezing and presents with a dry nonproductive cough. Breath sounds are globally diminished without wheezing. Patient is not tachypneic in saturation is 96% on room air. -requested respiratory therapy to consult evaluate and treat. -ordered albuterol MDI 2 puffs every 2 hours as needed for shortness of breath or wheezing. 5. Hyperlipidemia, chronic, stable -continue patient's home regimen of atorvastatin 10 mg daily. 6. Hypertension, chronic, stable. -continue home regimen of lisinopril 10 mg daily. 6. Depression, chronic, stable. -patient denies suicidal ideation or thoughts self-harm stating she has 2 good counselors whom are helping her. -will continue bupropion XL 300 mg daily. VTE prophylaxis: SCDs, chemical prophylaxis contraindicated IV fluid: Normal saline 125 cc/hour Diet: Clear liquid, small consistent carbohydrate. Code status: Full code, the patient designates her daughter to be her surrogate decision maker. The patient is admitted to the hospital due to her worsening symptoms of pyelonephritis failing outpatient treatment and development of GI bleeding requiring surgical evaluation. The patient requires a complex treatment plan including IV antibiotics to prevent complications or adverse events. The patient is admitted as an inpatient with expected length of stay to be greater than 2 midnights. COVID-19 COVID-19 status: Negative Result date/Date tested (Pos, Neg/Pending): 08/31/20 Scores GCS Bentley coma scale eye opening: Spontaneous Bentley coma scale verbal response: Orientated Bentley coma scale motor response: Obey commands Donovan coma scale total score: 15 Quality MIPS - Admit I confirm the patient?s Advance Care Plan is present, Code status is documented, Surrogate decision maker is in patient?s record [If Yes, STOP here]: Yes
[2020-08-31] MEDS: SODIUM CHLORIDE 0.9% 1,000 ML 125 ML IV ×2 (03:19→11:47)
[2020-08-31] MEDS: OXYCODONE IR 5 MG TABLET PO ×2 (03:19→08:17)
[2020-08-31] MEDS: ACETAMINOPHEN 325 MG TABLET 650 MG PO ×2 (03:19→23:51)
[2020-08-31] MEDS: METOCLOPRAMIDE 10 MG/2 ML INJ IV (03:37)
[2020-08-31] MEDS: ERTAPENEM 1 GM in SODIUM CHLORIDE 0.9% 100 ML 200 ML IV (03:38)
--- NOTE | 2020-08-31 05:04 | PC.NURSE ---
Admit Note-Patient brought to room 225 via stretcher, able to ambulate into BR with SBA. Oriented x4, forgetful, fast pressured, mildly fidgety and restless, rate abdominal and headache 8/10, medicated with oxycodone and Tylenol, IV Reglan given for nausea, no emesis. Hacking cough, lungs sounds clear, SpO2 96% RA, VSS, NS @ 125ml/hr, Abx infused.
[2020-08-31 05:38] LABS: BUN Creatinine Ratio 12.6 (6-22); Blood Urea Nitrogen 16 mg/dL (7-17); Calcium 8.4 mg/dL (8.4-10.2); Carbon Dioxide 24 mmol/L (22-32); Chloride 103 mmol/L (98-107); Glucose 297 mg/dL (70-100); HEMOLYSIS < 15 (0-50); Hematocrit 28.7 % (36-46); Hemoglobin 9.8 g/dL (12.0-16.0); Mean Corpuscular HGB Conc 34.3 % (30-36); Mean Corpuscular Hemoglobin 30.1 PG (26-34); Mean Corpuscular Volume 87.8 fL (80-100); Platelet Count 149 X10^3/uL (150-400); Potassium 3.6 mmol/L (3.4-5.1); Red Blood Cell Count 3.27 X10^6/uL (4.0-5.2); Red Cell Distribution Width 13.4 % (11.6-14.8); Sodium 133 mmol/L (137-145); White Blood Cell Count 10.7 X10^3/uL (4.5-11.0)
[2020-08-31 05:39] LABS: Add Manual Diff / Slide Review YES
[2020-08-31] MEDS: ONDANSETRON 4 MG/2 ML INJ IV ×4 (06:26→23:42)
[2020-08-31 06:43] LABS: Neutrophils Absolute Manual 8881 /uL (3000-5900); Total Cells Counted 100
[2020-08-31 06:44] LABS: Dohle Bodies 2+
[2020-08-31] MEDS: INSULIN LISPRO 100 UNIT/ML 3ML VIAL SUBCUT ×4 (07:55→21:05)
[2020-08-31] MEDS: PANTOPRAZOLE 40 MG VIAL IV (08:17)
--- NOTE | 2020-08-31 10:56 | CM.DANOTE ---
DCP Brief Assessment Note Patient is a 54 year old female who was admitted on 08/31/20 today for Rt Flank Pain, tarry stools. Pt has [facility] [facility] and [employer] for insurance and her PCP is Mami Morin. EMR was reviewed. Per , pt with hx of MS, diabetes, and hx of meth use and admitted with potential G.I. Bleed and pylenophritis. Per Surgeon Consult, no current need for Endoscopy but observing to confirm no ongoing signs of blood loss. Per RN, confirming if pt needs to be on precautions due to her kidney infection and therefore no bedside rounds in the pt room at this time. Per MD, pt likely will be stable for d/c home today or tomorrow pending labs. SW to follow for bedside assessment or further discussion with pt once precautions and medical care determined. Amanda Parker MSW
--- NOTE | 2020-08-31 11:08 | PC.NURSE ---
Patient has a hx of meth use and states that she last used one week ago. Given oxycodone for complaints of discomfort to abdomen and neck. She is steady on her feet, and has been voiding fine, security lead states that she does have some sediment in her urine. Patient is getting antibiotics. To give patient some imitrex now for complaints of migraine.
[2020-08-31] MEDS: SUMAtriptan 6 MG/0.5 ML VIAL SUBCUT (11:33)
--- NOTE | 2020-08-31 12:43 | P.CONS_ITS ---
History of Present Illness Consult details Date Patient Seen: 08/31/20 Time Patient Seen: 12:43 Chief complaint: Rt flank pain/ blood in stool Reason for consult: GI bleed Narrative: 54-year-old female multiple medical comorbidities admitted to hospital for pyelonephritis possible GI bleed. She reports flank pain has been taken ibuprofen and meloxicam. For the past 2 days she has had dark tarry stools, no bright red blood per rectum no hematemesis. In the emergency room last night she is hemodynamically stable hematocrit 31 today 29. She was Hemoccult negative. No history of peptic ulcer disease she did have an EGD 10 years ago which she reports as normal. Started on Protonix IV admission. Meds Home Medications and Allergies Home Medications Medication Instructions Recorded Confirmed Type albuterol sulfate 90 mcg/actuation INHALATION #8 gram 07/15/18 07/15/18 History aerosol inhaler fluticasone propionate 50 50 mcg NASAL 1-2XD #16 gram 07/15/18 08/31/20 History mcg/actuation nasal spray,suspension meloxicam 7.5 mg tablet 7.5 mg PO QAM #60 tab 07/15/18 08/31/20 History metformin 500 mg tablet 500 mg PO BID #120 tab 07/15/18 08/31/20 History amoxicillin-pot clavulanate 1 tab PO BID 10 Days #20 tab 08/30/20 08/31/20 Rx [Augmentin] bupropion HCl 300 mg PO DAILY 08/31/20 08/31/20 History insulin glargine [Lantus Solostar 20 unit SUBCUT 08/31/20 History U-100 Insulin] Allergies Allergy/AdvReac Type Severity Reaction Status Date / Time acetaminophen [From Vicodin] Allergy Verified 08/30/20 23:18 cephalexin Allergy Verified 08/30/20 23:18 ciprofloxacin [From Cipro] Allergy Verified 08/30/20 23:18 codeine Allergy Verified 08/30/20 23:18 doxycycline Allergy Verified 08/30/20 23:18 hydrocodone [From Vicodin] Allergy Verified 08/30/20 23:18 penicillin V Allergy Verified 08/30/20 23:18 sulfamethoxazole Allergy Verified 08/30/20 23:18 [From Bactrim] trimethoprim [From Bactrim] Allergy Verified 08/30/20 23:18 Review of Systems Review of Systems ROS: Yes All systems reviewed with the patient and are negative except as otherwise documented Exam Vital Signs (past 8 hours): - 08/31/20 07:20 Temperature 99.4 F Pulse Rate 91 H Respiratory Rate 19 Blood Pressure 131/78 Pulse Oximetry 94 Oxygen Delivery Method Room Air Oxygen Flow Rate 0 Narrative Exam Narrative: GENERAL-obese adult woman, no acute distress HEENT-no scleral icterus, hearing intact NECK-no JVD, trachea midline CVS- regular rate, no peripheral edema RESP-unlabored respiratory effort, no audible wheezing GI-soft, mild epigastric tenderness no peritonitis MSK-no cyanosis or clubbing, extremities without deformity SKIN-warm, dry NEURO-alert and oriented, no focal deficits PYSCH-Appropriate mood and affect Objective Labs Result Diagrams: 08/31/20 04:55 08/31/20 04:55 Labs: Laboratory Results - last 24 hr 08/30/20 08/30/20 08/30/20 22:15 22:15 22:15 WBC 10.7 RBC 3.46 L Hgb 10.4 L Hct 30.5 L MCV 88.3 MCH 29.9 MCHC 33.9 RDW 13.5 Plt Count 154 Neut % (Auto) 81.7 H Lymph % (Auto) 7.5 L [place] % (Auto) 10.2 Eos % (Auto) 0.2 L Baso % (Auto) 0.4 Neut # (Auto) 8700 H Lymph # (Auto) 800 L [place] # (Auto) 1100 H Eos # (Auto) 0 Baso # (Auto) 0 Total Counted Seg Neutrophils % Band Neutrophils % Lymphocytes % (Manual) Monocytes % (Manual) Eosinophils % (Manual) Neutrophils # (Manual) Dohle Bodies RBC Morphology PT 14.9 H INR 1.3 APTT 30 Sodium 129 L Potassium 3.9 Chloride 98 Carbon Dioxide 23 BUN 16 Creatinine 1.28 H Estimated GFR 43.6 L BUN/Creatinine Ratio 12.5 Glucose 441 H Lactate Calcium 8.8 Magnesium Total Bilirubin 0.5 AST 27 ALT 29 Alkaline Phosphatase 180 H Total Protein 6.1 L Albumin 3.0 L Globulin 3.1 Albumin/Globulin Ratio 1.0 Blood Type Antibody Screen 08/30/20 08/30/20 08/30/20 22:15 22:35 23:55 WBC RBC Hgb 10.0 L Hct 29.3 L MCV MCH MCHC RDW Plt Count Neut % (Auto) Lymph % (Auto) [place] % (Auto) Eos % (Auto) Baso % (Auto) Neut # (Auto) Lymph # (Auto) [place] # (Auto) Eos # (Auto) Baso # (Auto) Total Counted Seg Neutrophils % Band Neutrophils % Lymphocytes % (Manual) Monocytes % (Manual) Eosinophils % (Manual) Neutrophils # (Manual) Dohle Bodies RBC Morphology PT INR APTT Sodium Potassium Chloride Carbon Dioxide BUN Creatinine Estimated GFR BUN/Creatinine Ratio Glucose Lactate 1.1 Calcium Magnesium Total Bilirubin AST ALT Alkaline Phosphatase Total Protein Albumin Globulin Albumin/Globulin Ratio Blood Type O Negative Antibody Screen Negative 08/30/20 08/30/20 08/31/20 23:55 23:55 04:55 WBC 10.7 RBC 3.27 L Hgb 9.8 L Hct 28.7 L MCV 87.8 MCH 30.1 MCHC 34.3 RDW 13.4 Plt Count 149 L Neut % (Auto) Not Reportable Lymph % (Auto) Not Reportable [place] % (Auto) Not Reportable Eos % (Auto) Not Reportable Baso % (Auto) Not Reportable Neut # (Auto) Lymph # (Auto) Not Reportable [place] # (Auto) Not Reportable Eos # (Auto) Baso # (Auto) Not Reportable Total Counted 100 Seg Neutrophils % 70.0 Band Neutrophils % 13.0 H Lymphocytes % (Manual) 7.0 L Monocytes % (Manual) 9.0 Eosinophils % (Manual) 1.0 L Neutrophils # (Manual) 8881 H Dohle Bodies 2+ H RBC Morphology See below PT INR APTT Sodium 131 L Potassium 4.1 Chloride 101 Carbon Dioxide 25 BUN 16 Creatinine 1.32 H Estimated GFR 42.1 L BUN/Creatinine Ratio 12.1 Glucose 377 H Lactate Calcium 8.5 Magnesium 1.6 Total Bilirubin AST ALT Alkaline Phosphatase Total Protein Albumin Globulin Albumin/Globulin Ratio Blood Type Antibody Screen 08/31/20 04:55 WBC RBC Hgb Hct MCV MCH MCHC RDW Plt Count Neut % (Auto) Lymph % (Auto) [place] % (Auto) Eos % (Auto) Baso % (Auto) Neut # (Auto) Lymph # (Auto) [place] # (Auto) Eos # (Auto) Baso # (Auto) Total Counted Seg Neutrophils % Band Neutrophils % Lymphocytes % (Manual) Monocytes % (Manual) Eosinophils % (Manual) Neutrophils # (Manual) Dohle Bodies RBC Morphology PT INR APTT Sodium 133 L Potassium 3.6 Chloride 103 Carbon Dioxide 24 BUN 16 Creatinine 1.27 H Estimated GFR 44.0 L BUN/Creatinine Ratio 12.6 Glucose 297 H Lactate Calcium 8.4 Magnesium Total Bilirubin AST ALT Alkaline Phosphatase Total Protein Albumin Globulin Albumin/Globulin Ratio Blood Type Antibody Screen Assessment & Plan Assessment & Plan narrative: 54-year-old female admitted to the hospital for lilian lonephritis and up possible GI bleed. She has mild anemia she is hemodynamically stable she has had melanotic stool which is Hemoccult negative. At this point could proceed with either a esophagoduodenoscopy or observation and PPI for which likely gastritis given her a NSAID use. She has multiple comorbidities she has remains hemodynamically stable I think it is reasonable at this point to proceed with observation and PPI. If her clinical condition worsens then would proceed with EGD for diagnostic and potentially therapeutic purpose.
[2020-08-31 14:41] LABS: Acinetobacter baumannii Not Detected (Not Detect); E. coli Detected (Not Detect); Enterobacteriaceae species Detected (Not Detect); Enterococcus species Not Detected (Not Detect); KPC (carbapenem-resist gene) Not Detected (Not Detect); Listeria monocytogenes Not Detected (Not Detect); Methicillin-resistant gene Not Detected (Not Detect); Staphylococcus species Not Detected (Not Detect); Streptococcus agalactiae (Gr B Not Detected (Not Detect); Streptococcus pneumonia Not Detected (Not Detect); Streptococcus pyogenes (Gr A) Not Detected (Not Detect); Streptococcus species Not Detected (Not Detect); Vancomycin-rest genes A/B Not Detected (Not Detect)
[2020-08-31 14:42] LABS: Candida albicans Not Detected (Not Detect); Candida glabrata Not Detected (Not Detect); Candida krusei Not Detected (Not Detect); Candida parapsilosis Not Detected (Not Detect); Candida tropicalis Not Detected (Not Detect); Enterobacter cloacae complex Not Detected (Not Detect); Haemophilus influenzae Not Detected (Not Detect); Neisseria meningitidis Not Detected (Not Detect); Proteus species Not Detected (Not Detect); Pseudomonas aeruginosa Not Detected (Not Detect); Serratia marcescens Not Detected (Not Detect)
[2020-08-31] MEDS: OXYCODONE IR 10 MG TABLET PO (16:21)
[2020-08-31] MEDS: METFORMIN HCL 500 MG TABLET PO (18:48)
[2020-08-31] MEDS: INSULIN GLARGINE 100 UNIT/ML 3ML PEN 30 UNIT SUBCUT (21:08)
[2020-09-01] VITALS (13 sets, daily range): BP systolic 110–150; BP diastolic 69–95; PULSE 84–97; RESP 16–26; TEMP 36.2–37.8; O2SAT 92–97
[2020-09-01] MEDS: ERTAPENEM 1 GM in SODIUM CHLORIDE 0.9% 100 ML 200 ML IV (02:55)
[2020-09-01 05:14] LABS: Add Manual Diff / Slide Review NO; Basophils Absolute Auto 0 /uL (0-100); Basophils Percent Auto 0.3 % (0-2); Eosinophils Absolute Auto 100 /uL (0-450); Eosinophils Percent Auto 0.4 % (2-4); Hematocrit 29.1 % (36-46); Hemoglobin 9.9 g/dL (12.0-16.0); Lymphocytes Absolute Auto 1700 /uL (1100-4500); Lymphocytes Percent Auto 11.7 % (25-40); Mean Corpuscular Volume 88.3 fL (80-100); Monocytes Absolute Auto 1700 /uL (0-900); Neutrophils Absolute Auto 10900 /uL (1500-7000); Neutrophils Percent Auto 75.6 % (50-75); Platelet Count 186 X10^3/uL (150-400); Red Cell Distribution Width 13.6 % (11.6-14.8); White Blood Cell Count 14.4 X10^3/uL (4.5-11.0)
--- NOTE | 2020-09-01 05:41 | PC.NURSE ---
Addendum entered by Felicia Gan R.N. 09/01/20 06:03: 0545- Prolonged coughing spell. Patient encouraged to expectorate. Patient encouraged to not hyperventilate. With coaching patient settled. Will monitor. Original Note: 6330- Discussed lab results with [employer] Delvin. WBC elevated and patient febrile all noc. No orders rec. Will monitor.
[2020-09-01] MEDS: PANTOPRAZOLE DR 40 MG TABLET PO (06:07)
[2020-09-01] MEDS: ONDANSETRON 4 MG/2 ML INJ IV ×3 (06:07→17:11)
[2020-09-01] MEDS: OXYCODONE IR 5 MG TABLET PO (08:31)
[2020-09-01] MEDS: INSULIN LISPRO 100 UNIT/ML 3ML VIAL SUBCUT ×4 (08:32→21:22)
[2020-09-01] MEDS: METFORMIN HCL 500 MG TABLET PO ×2 (08:32→17:11)
[2020-09-01] MEDS: SENNOSIDES 8.6 MG TABLET 17.2 MG PO ×2 (10:44→21:19)
[2020-09-01] MEDS: levoFLOXacin 500 MG TABLET PO (10:45)
[2020-09-01] MEDS: polyethylene glycoL 3350 17 GM POWD.PACK PO ×2 (10:45→21:19)
--- NOTE | 2020-09-01 14:51 | PM.PN.1 ---
Subjective Subjective Date Patient Seen: 09/01/20 Interval history: Patient continues to complain of feeling poorly. She has minimal appetite. She has had no BM for some time. Patient complains of feeling short of breath. She has had no hematemesis or melena. Patient continues to be febrile [place] [address]. Urine and blood cultures are growing E coli. Exam Vital Signs (past 8 hours): - 09/01/20 07:35 09/01/20 08:00 09/01/20 09:12 Temperature 99.1 F Pulse Rate 95 H 97 H Respiratory Rate 24 20 Blood Pressure 145/95 H Pulse Oximetry 92 95 92 09/01/20 12:00 09/01/20 13:00 Temperature 98.7 F Pulse Rate 96 H Respiratory Rate 26 H Blood Pressure 137/80 Pulse Oximetry 96 92 Oxygen Delivery Method Room Air Oxygen Flow Rate 0 Narrative Exam Narrative: Ill-appearing female lying in bed Lungs: Clear to auscultation Cardiac exam: Regular rate and rhythm normal S1-S2 Abdomen: Soft nontender nondistended, left CVA tenderness noted Extremities: No edema Objective Labs Result Diagrams: 09/01/20 04:50 08/31/20 04:55 Labs: Laboratory Results - last 24 hr 09/01/20 04:50 WBC 14.4 H RBC 3.30 L Hgb 9.9 L Hct 29.1 L MCV 88.3 MCH 30.0 MCHC 34.0 RDW 13.6 Plt Count 186 Neut % (Auto) 75.6 H Lymph % (Auto) 11.7 L [place] % (Auto) 12.0 Eos % (Auto) 0.4 L Baso % (Auto) 0.3 Neut # (Auto) 81048 H Lymph # (Auto) 1700 [place] # (Auto) 1700 H Eos # (Auto) 100 Baso # (Auto) 0 PFSH Medical History Cervical spine arthritis with nerve pain COPD (chronic obstructive pulmonary disease) Depression HPV (human papilloma virus) anogenital infection Hyperlipidemia Hypertension Insulin dependent type 2 diabetes mellitus Multiple sclerosis Surgical History Status post decompression of compartment syndrome Family History Father Medical history unknown Mother Alzheimer's dementia Grandmother Alzheimer's dementia Brother Diabetes mellitus Brain tumor Social History household members: children Smoking Status: Current every day smoker Assessment & Plan Assessment & Plan narrative: Pyelonephritis, bilateral, present on admission, active. -CT identifies bilateral perinephritic stranding right greater than left with UTI positive for to PVCs moderate bacteria. -the patient has white count of 10.7 with neutrophils of a 1700 and monocytes 1100. -the patient was started on Augmentin earlier today however was not started. Patient has multiple drug allergies including cephalosporins penicillins sulfa and Cipro. The patient is started on meropenem 1 g IV daily. -patient states she can take Tylenol which is ordered 650 mg every 4 hours needed for fever or mild pain and oxycodone 5-10 mg by mouth every 4 hours as needed for pain. -recheck CBC and renal function on chemistries in the morning. -blood cultures growing E coli, urine culture growing E coli, E coli resistant to Unasyn and Augmentin. Patient was switched to oral levofloxacin for which it is sensitive -patient's white count elevated to 14,000, she continues to have low-grade fever and feels poorly. Will continue Levaquin for now 2. Upper GI bleed, present on admission, active -the patient endorses 2-3 days of black tarry stools described as ?slimy?. She has epigastric pain on palpation. She has been taking ibuprofen as well as meloxicam to manage her pain. -hemoglobin this morning was 11.3 -ordered Protonix 40 mg twice daily. -ordered clear liquid diet pending surgical evaluation. -requested Dr. Alba consult, we appreciate his evaluation recommendations. -H&H stable, no evidence of upper GI bleed, will defer upper endoscopy during this hospital stay, outpatient EGD if needed. 3. Insulin-dependent diabetes uncontrolled with hyperglycemia, present on admission, active. -the patient states her depression has been worse lately she has been noncompliant with her insulin regimen. She is to take Lantus 20 units daily however her uses been sporadic. -her serum glucose on her morning visit to the ER was 519. This evening her serum glucose is 377 with a follow-up point of care check at 451. Ordered glucose check upon arrival to the inpatient unit which is 326. -ordered fingerstick blood sugars a.c. and hs with low-dose correctional insulin. -will continue the patient's home regimen of Lantus 20 units daily. -diet will be clear liquid small consistent carbohydrate. -will advance diet, Hep-Lock IV fluids 4. COPD, chronic, stable -patient denies shortness of breath or wheezing and presents with a dry nonproductive cough. Breath sounds are globally diminished without wheezing. Patient is not tachypneic in saturation is 96% on room air. -requested respiratory therapy to consult evaluate and treat. -ordered albuterol MDI 2 puffs every 2 hours as needed for shortness of breath or wheezing. 5. Hyperlipidemia, chronic, stable -continue patient's home regimen of atorvastatin 10 mg daily. 6. Hypertension, chronic, stable. -continue home regimen of lisinopril 10 mg daily. 6. Depression, chronic, stable. -patient denies suicidal ideation or thoughts self-harm stating she has 2 good counselors whom are helping her. -will continue bupropion XL 300 mg daily.
--- NOTE | 2020-09-01 15:28 | DIET.PN ---
Dietary Progress Note Assessment: 54y F current daily smoker with a past medical history significant for multiple sclerosis manifested with cognitive impairment, hypertension, hyperlipidemia, COPD, insulin-dependent diabetes type 2, cervical arthritis with intermittent left arm paresthesias, anxiety and depression admitted for pyelonephritis positive bacterial blood and urine cultures referred to nutrition for obesity and uncontrolled DM. Per pt she has never had regular BMs often going a week or two between. Pt has not had BM for over 1w. Pt reports not having lancets or test strips, when asking her usual pharmacy to fill Rx, she states they did not because they did not know what kind she uses. 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 Pt lives c 2 nephews, she has told them to check her BG if she is lethargic but they are afraid of the lancet applicator. RD unclear why diet changed to general over CCD c high BGs. Pt eating cheerios c 2% milk and Ensure Clear during interview. Pt reports depression from her father dying 10y ago started her poor DM management but feels this is getting somewhat better. Pt unsure when sx are hyperglycemia vs MS flare. HT: 180.3cm WT: 99.5kg BMI:30 Labs:BG in ED 519 Nutrition Diagnosis: altered nutrition related laboratory values (BG) r/t endocrine dysfunction and poorly controlled DM aeb pts admit BG 519 c further BG readings 377, 451, 326, pt reports being out of lancets and test strips, intermittent insulin use. Interventions: 1. Discussed consequences of BG >200 for healing and infection risk including current infection. 2. Encouraged pt to go ahead and teach her nephews to check her BG if she is afraid of hyper- hypoglycemia and they find her lethargic. 3. Reinforced importance of daily insulin and metformin intake as well as CCD for good BG control. 4. Educated pt on role of soluble fiber for regular BMs. Pt does not like beans but willing to eat small portions of oatmeal and pears (fresh or packed in 100%juice/water) to support BMs. Diet Order: CCD Monitoring/Evaluations: following BGs, diet order
[2020-09-01] MEDS: SUMAtriptan 6 MG/0.5 ML VIAL SUBCUT (17:14)
[2020-09-01] MEDS: MAGNESIUM CITRATE 300 ML SOLUTION 150 ML PO (17:15)
[2020-09-01] MEDS: INSULIN GLARGINE 100 UNIT/ML 3ML PEN 30 UNIT SUBCUT (21:22)
[2020-09-01] MEDS: SODIUM CHLORIDE 0.9% FLUSH 10 ML IV (21:23)
[2020-09-02] MEDS: ONDANSETRON 4 MG/2 ML INJ IV (00:36)
[2020-09-02] MEDS: SODIUM CHLORIDE 0.9% FLUSH 10 ML IV ×2 (00:36→09:37)
[2020-09-02 04:00] VITALS: O2SAT 95
[2020-09-02 05:13] LABS: BUN Creatinine Ratio 13.2 (6-22); Blood Urea Nitrogen 18 mg/dL (7-17); Calcium 8.4 mg/dL (8.4-10.2); Carbon Dioxide 23 mmol/L (22-32); Chloride 105 mmol/L (98-107); Estimated Glomerular Filt Rate 40.7 mL/min (>60); Glucose 188 mg/dL (70-100); HEMOLYSIS < 15 (0-50); Potassium 3.7 mmol/L (3.4-5.1); Sodium 134 mmol/L (137-145)
[2020-09-02 05:35] VITALS: PULSE 87; RESP 16; TEMP 36.3; O2SAT 97
[2020-09-02 05:44] LABS: Add Manual Diff / Slide Review NO; Basophils Absolute Auto 0 /uL (0-100); Basophils Percent Auto 0.3 % (0-2); Eosinophils Absolute Auto 100 /uL (0-450); Eosinophils Percent Auto 0.7 % (2-4); Hemoglobin 9.1 g/dL (12.0-16.0); Lymphocytes Absolute Auto 1500 /uL (1100-4500); Lymphocytes Percent Auto 9.7 % (25-40); Mean Corpuscular HGB Conc 32.4 % (30-36); Mean Corpuscular Hemoglobin 28.6 PG (26-34); Mean Corpuscular Volume 88.5 fL (80-100); Monocytes Absolute Auto 1500 /uL (0-900); Monocytes Percent Auto 9.6 % (3-14); Neutrophils Absolute Auto 12500 /uL (1500-7000); Neutrophils Percent Auto 79.7 % (50-75); Platelet Count 253 X10^3/uL (150-400); Red Blood Cell Count 3.17 X10^6/uL (4.0-5.2); Red Cell Distribution Width 13.5 % (11.6-14.8); White Blood Cell Count 15.7 X10^3/uL (4.5-11.0)
[2020-09-02 06:25] VITALS: BP 134/82; PULSE 88
[2020-09-02] MEDS: PANTOPRAZOLE DR 40 MG TABLET PO (06:29)
[2020-09-02] MEDS: METFORMIN HCL 500 MG TABLET PO (09:37)
[2020-09-02] MEDS: INSULIN LISPRO 100 UNIT/ML 3ML VIAL SUBCUT ×2 (09:38→13:25)
[2020-09-02 09:54] VITALS: O2SAT 96
--- NOTE | 2020-09-02 12:28 | PM.DS.1 ---
History of Present Illness History of Present Illness Date Patient Seen: 09/02/20 Time Patient Seen: 12:28 Chief complaint: Rt flank pain/ blood in stool Narrative: As per ANNEL Pinedo: Ms. Sheyla Jolley is a 54-year-old female who was a current daily smoker with a past medical history significant for multiple sclerosis manifested with cognitive impairment, hypertension, hyperlipidemia, COPD, insulin-dependent diabetes type 2, cervical arthritis with intermittent left arm paresthesias, anxiety and depression who presents to the ER for worsening flank pain and nausea. The patient was seen earlier on 08/30/2020 with initial triage reporting flu like symptoms for 1 week with shortness of breath, constipation and fever. The patient was found to have hyperglycemia with a glucose of 519 with an anion gap of 9, positive urinalysis for white cells, blood and moderate bacteria as well as a CT showing bilateral perinephric stranding consistent with pyelonephritis. She was discharged on Augmentin in the setting of multiple antibiotic allergies. The patient returns this evening with increasing flank and abdominal pain and nausea. She distally reports having black stools described as ?slimy?. The patient endorses having fevers and chills and headache, denies dizziness or visual changes, nasal congestion or sore throat. She reports no complaints chest pain or palpitations. She has a history of COPD with chronic dry nonproductive cough however denies shortness of breath or wheezing. She reports epigastric discomfort and nausea stating that she does not vomit has had no hematemesis. She has had dark stools for 2-3 days and endorses taking meloxicam and ibuprofen for pain. She denies overt urinary symptoms of urgency frequency or burning and has had no hematuria. Upon arrival to the ER the patient has a temperature 97.9?, heart rate of 89, blood pressure 138/63, respiratory rate of 20 and oxygen saturation 95%. The patient had a CT of the abdomen and pelvis earlier in the day which denotes mild perinephritic stranding bilateral kidneys right greater than left and prominence of the right renal collecting system without evidence of renal calculi. Abdominal ultrasound is obtained which finds no gallstones or sludge no evidence of acute cholecystitis, mild dilated common bile duct at 6-7 mm, hepatomegaly with mild fatty liver curse review of the right kidney demonstrates no evidence of hydronephrosis. On laboratory analysis the patient has white count of 10.7 with elevated neutrophils at a 1700, monocytes at 1100. She has a PT of 14.9 and INR 1.3 and a PTT of 30. Her chemistries remarkable for mild hyponatremia 131 with a BUN of 16 and creatinine 1.32. Her nonfasting glucose is 377. Subsequent point of care glucose is 451. She has a total bilirubin 0.5, AST of 27 ALT of 29 and alkaline phosphatase of 180. Lactic acid is 1.1. Urinalysis from earlier in the day finds specific gravity of 1.010, positive for wbc's, blood, protein and moderate bacteria and glucose, negative for leukocyte esterase or nitrites. COVID screening is negative. In the ER the patient is started on Protonix 40 mg IV and type and screen is obtained. Dr. Alba general surgery is contacted regarding the patient and agrees to consult. The patient is admitted to the hospitalist service for GI bleed and pyelonephritis. Discharge Providers Provider Date of admission: 08/31/20 01:52 Discharge Date: 09/02/20 Primary care physician: LEONARDO Gerardo Consults: 08/31/20 02:25 Consult to Dietitian, Adult Routine Comment: Reason For Exam: Obesity, uncontrolled diabetes Consult to Discharge Planning Routine Comment: Consult to Respiratory Therapy Evaluate & Treat Comment: Current smoker, COPD Physician Instructions: Evaluate and treat 08/31/20 04:16 Consult to General Surgery Routine Comment: Consulting Provider: Hill Alba Reason for consultation: GI bleed, melena, excessive NSAID use. Has provider been notified: Yes Discharge provider: Omer Bullard DO Summary Hospital Course Discharge Diagnosis: Please see hospital course by problem list noted below. Hospital Course: 1. Pyelonephritis, bilateral, present on admission, active. -CT identifies bilateral perinephritic stranding right greater than left with UTI positive for to PVCs moderate bacteria. -blood cultures growing E coli, urine culture growing E coli, E coli resistant to Unasyn and Augmentin. Blood culture with similar resistance. Patient was switched to oral levofloxacin for which it is sensitive. -patient's white count elevated to 15,000 on day of discharge, however clinically she was improving. She was afebrile, tolerating a diet and off of IV fluids and on oral antibiotics. Recommend 14 day total course of antibiotics (levofloxacin). 2. E. coli bacteremia, acute, present on admission. - see above. 3. Upper GI bleed, present on admission, improved. -the patient endorses 2-3 days of black tarry stools described as ?slimy?. She had epigastric pain on palpation which improved. She has been taking ibuprofen as well as meloxicam to manage her pain. -H&H remained stable between 9-10 during admission, no evidence of active upper GI bleed, will defer upper endoscopy during this hospital stay, outpatient EGD if needed. Discharge on oral PPI BID. -PCP follow up recommended in the next 1-2 weeks for repeat CBC and evaluation of symptoms. 4. Insulin-dependent diabetes uncontrolled with hyperglycemia, present on admission, active. -the patient states her depression has been worse lately she has been noncompliant with her insulin regimen. She is to take Lantus 20 units daily however her uses been sporadic. -recommend continued outpatient follow up for diabetes control. 5. COPD, chronic, stable -requested respiratory therapy to consult evaluate and treat. -ordered albuterol MDI 2 puffs every 2 hours as needed for shortness of breath or wheezing which she did not have during admission. 6. Hyperlipidemia, chronic, stable -continue patient's home regimen of atorvastatin 10 mg daily. 7. Hypertension, chronic, stable. -continue home regimen of lisinopril 10 mg daily. 8. Depression, chronic, stable. -patient denies suicidal ideation or thoughts self-harm stating she has 2 good counselors whom are helping her. -continue bupropion XL 300 mg daily. Exam Vital Signs (past 8 hours): - 09/02/20 05:35 09/02/20 06:25 09/02/20 09:54 Temperature 97.4 F L Pulse Rate 87 88 Respiratory Rate 16 Blood Pressure 134/82 Pulse Oximetry 97 96 Oxygen Delivery Method Room Air Oxygen Flow Rate 0 Narrative Exam Narrative: GENERAL-obese adult woman, no acute distress HEENT-no scleral icterus, hearing intact NECK-no JVD, trachea midline CVS- regular rate, no peripheral edema RESP-unlabored respiratory effort, no audible wheezing GI-soft, non-tender, non-distended. MSK-no cyanosis or clubbing, extremities without deformity SKIN-warm, dry NEURO-alert and oriented, no focal deficits PYSCH-Appropriate mood and affect Objective Labs Result Diagrams: 09/02/20 04:35 09/02/20 04:35 Labs: Laboratory Results - last 24 hr 09/02/20 09/02/20 04:35 04:35 WBC 15.7 H RBC 3.17 L Hgb 9.1 L Hct 28.0 L MCV 88.5 MCH 28.6 MCHC 32.4 RDW 13.5 Plt Count 253 Neut % (Auto) 79.7 H Lymph % (Auto) 9.7 L [place] % (Auto) 9.6 Eos % (Auto) 0.7 L Baso % (Auto) 0.3 Neut # (Auto) 08094 H Lymph # (Auto) 1500 [place] # (Auto) 1500 H Eos # (Auto) 100 Baso # (Auto) 0 Sodium 134 L Potassium 3.7 Chloride 105 Carbon Dioxide 23 BUN 18 H Creatinine 1.36 H Estimated GFR 40.7 L BUN/Creatinine Ratio 13.2 Glucose 188 H D Calcium 8.4 PFSH Medical History Cervical spine arthritis with nerve pain COPD (chronic obstructive pulmonary disease) Depression HPV (human papilloma virus) anogenital infection Hyperlipidemia Hypertension Insulin dependent type 2 diabetes mellitus Multiple sclerosis Surgical History Status post decompression of compartment syndrome Family History Father Medical history unknown Mother Alzheimer's dementia Grandmother Alzheimer's dementia Brother Diabetes mellitus Brain tumor Social History household members: children Smoking Status: Current every day smoker Discharge Plan Discharge Plan Patient Disposition: Home Provider Discharge Comment: You were admitted to the hospital with an infection in your kidneys which went to your blood stream as well. This is treated with 2 weeks of antibiotics. Please complete this at home. Will also provide a few additional doses of pain medication if needed. Recommend increasing your home lantus to 20 units as well. Please follow up with your PCP for further adjustment of your diabetes medications. Discharge orders & Medications Prescriptions: New oxycodone 5 mg tablet 5 mg PO Q8H PRN (Reason: pain) 7 Days Qty: 10 RF: 0 levofloxacin 750 mg tablet 750 mg PO DAILY 12 Days Qty: 12 RF: 0 pantoprazole 40 mg tablet,delayed release (DR/EC) 40 mg PO BID 30 Days Qty: 60 RF: 0 Continued bupropion HCl 300 mg tablet extended release 24 hr 300 mg PO DAILY RF: 0 albuterol sulfate 90 mcg/actuation HFA aerosol inhaler 1 puff INHALATION PRN PRN (Reason: SOB) Qty: 8 RF: 0 fluticasone propionate 50 mcg/actuation spray,suspension 50 mcg NASAL 1-2XD Qty: 16 RF: 0 metformin 500 mg tablet 500 mg PO BID Qty: 120 RF: 0 Changed Lantus Solostar U-100 Insulin 100 unit/mL (3 mL) insulin pen 20 unit SUBCUT DAILY Qty: 0 RF: 0 Discontinued amoxicillin-pot clavulanate [Augmentin] 875-125 mg tablet 1 tab PO BID 10 Days Qty: 20 RF: 0 meloxicam 7.5 mg tablet 7.5 mg PO QAM Qty: 60 RF: 0 Follow up/Referrals: Mami Morin, [facility] [Primary Care Provider] - Discharge Health Status Multidrug resistant organism: No MDRO Diet/Activity/Treatments Diet: Diet as Tolerated and Carb-consistent/Diabetic Activity: As tolerated Discharge Data Primary Care Provider: Mami Morin
[2020-09-02 13:06] VITALS: O2SAT 95
[2020-09-02 13:10] VITALS: O2SAT 96
--- NOTE | 2020-09-02 13:35 | PC.NURSE ---
Addendum entered by Awilda Monahan R.N. 09/02/20 15:08: reviewed discharge plan with pt and new rx- answered all questions to her satisfaction signed discharge papers in chart Original Note: PT DOING WELL, DENIES PAIN AND IS AMBULATING ABOUT THE ROOM AD- YANDY, SEVERAL EPISODES OF LOOSE STOOL AND SHE REPORTS THIS IS NOT UNUSUAL FOR HER TO BE QUITE CONSTIPATED THEN WITH LOOSE STOOLS EVERY MONTH OR SO - PLAN TO DISCHARGE HER HOME TODAY WITH RX FOR CONTINUED COURSE OF LEVAQUIN PO FOR HER E-COLI UTI- CBG HAVE BEEN 267/237 THIS SHIFT AND COVERED ACCORDINGLY, NEW RX FOR INCREASED LANTUS DOSE TO 20 UNITS EACH PM ( RATHER THAN 15U) IV REMOVED AND AWAITING TRANSPORT FROM FAMILY [facility] TO HOME- NEW RX ELCTRONICALLY SENT TO [facility] [place]
--- NOTE | 2020-09-02 14:44 | CM.DPNOTE ---
DC Note According to Dr Bullard and HORACIO Kaiser, patient is medically cleared for return home today on po abx, no needs indicated from this [employer]. Plan: DC home w/family private auto, ambulating indp, no needs from this [employer] before DC JW
== END 2020-09-02 17:00 | disposition home or self-care (01) | DRG 690 ==
LOC: ED 08-31 01:13 → AC 08-31 09:14
PROVIDERS: Internal Medicine; Admitting Provider Nurse Practitioner Adult Health; Emergency Provider Emergency Medicine; PCP Nurse Practitioner Family; Referring Provider Emergency Medicine; Visit Provider Nurse Practitioner Adult Health
DX: N12 Tubulo-interstitial nephritis, not specified as acute or chronic (principal); R78.81 Bacteremia; Z16.11 Resistance to penicillins; K92.1 Melena; G35 Multiple sclerosis; E11.65 Type 2 diabetes mellitus with hyperglycemia; J44.9 Chronic obstructive pulmonary disease, unspecified; B96.20 Unspecified Escherichia coli [E. coli] as the cause of diseases classified elsewhere; F17.210 Nicotine dependence, cigarettes, uncomplicated; I10 Essential (primary) hypertension; E78.5 Hyperlipidemia, unspecified; F32.9 Major depressive disorder, single episode, unspecified; Z79.4 Long term (current) use of insulin; Z20.822 Contact with and (suspected) exposure to COVID-19
CPT/HCPCS: 36415; 74177; 76705; 80048; 80053; 81003; 81015; 82009; 82272; 82962; 83605; 83690; 83735; 84100; 85007; 85014; 85018; 85025; 85610; 85730; 86850; 86900; 86901; 87040; 87077; 87086; 87150; 87186; 87205; 87635; 96361; 96374; 96375; 99233; 99284; 99406; C9803; C9113; J1335; J1815; J1885; J2405; J2765; J3030

== ENCOUNTER 2021-01-15 18:29 | Observation (INO) | payer OTHER, MEDICAID, SELFPAY ==
[2020-08-31 04:59] VITALS: BMI 30.6
[2021-01-15] VITALS (12 sets, daily range): BP systolic 102–143; BP diastolic 50–79; PULSE 91–118; RESP 22; TEMP 36.3; O2SAT 96–99; BMI 27.8
--- NOTE | 2021-01-15 19:01 | ED.SKABFB ---
HPI - Skin/Abscess/Foreign Bdy General Chief complaint: Skin/Abscess/Foreign Body Stated complaint: LEFT LEG PAIN LEFT EYE PAIN AND NECK Time Seen by Provider: 01/15/21 18:45 Source: patient Mode of arrival: Family Vehicle Limitations: no limitations History of Present Illness HPI narrative: Patient is a 55-year-old female history of methamphetamine use, chronic back pain, insulin dependent he has, COPD presenting today with multiple complaints. She has been having swelling on the left side of her neck for the past couple of days very tender to touch. She feels like her voice is raspy but she is managing her own secretions no difficulty breathing. Today she developed drainage from her left eye as well she feels like she has a sinus infection. Also feels like she has boils on the top of her head. She has been on steroid for her left sciatic pain that has been going on for a week and a half. She continues to have pain in that left leg is no new numbness tingling or weakness. She thinks the sciatic was aggravated by her new stick shift. She has had body aches she is also complaining of chest burning which goes all the way up into her jaw that has been going on for over a week. She is experiencing now is well. Does not have any significant shortness of breath. She is COVID vaccinated. Related Data Home Medications Medication Instructions Recorded Confirmed albuterol sulfate 90 mcg/actuation 1 puff INHALATION PRN PRN #8 gram 07/15/18 08/31/20 aerosol inhaler fluticasone propionate 50 50 mcg NASAL 1-2XD #16 gram 07/15/18 08/31/20 mcg/actuation nasal spray,suspension metformin 500 mg tablet 500 mg PO BID #120 tab 07/15/18 08/31/20 bupropion HCl 300 mg 24 hr tablet, 300 mg PO DAILY 08/31/20 08/31/20 extended release Previous Rx's Medication Instructions Recorded insulin glargine 100 unit/mL (3 20 unit SUBCUT DAILY #0 ml 09/02/20 mL) subcutaneous pen (Lantus Solostar U-100 Insulin) Allergies Allergy/AdvReac Type Severity Reaction Status Date / Time acetaminophen [From Vicodin] Allergy Verified 01/15/21 18:45 cephalexin Allergy Verified 01/15/21 18:45 ciprofloxacin [From Cipro] Allergy Verified 01/15/21 18:45 codeine Allergy Verified 01/15/21 18:45 doxycycline Allergy Verified 01/15/21 18:45 hydrocodone [From Vicodin] Allergy Verified 01/15/21 18:45 penicillin V Allergy Verified 01/15/21 18:45 sulfamethoxazole Allergy Verified 01/15/21 18:45 [From Bactrim] trimethoprim [From Bactrim] Allergy Verified 01/15/21 18:45 Review of Systems Review of Systems ROS Unobtainable: All systems reviewed & are unremarkable except as noted in HPI and below Constitutional Constitutional: Reports body ache(s) and Denies chills Eyes Eyes: Denies blurry vision and Reports eye discharge (left eye) ENT Ears, Nose, Mouth, and Throat: Denies vertigo, Denies dizziness and Reports sinus pain Cardiovascular Cardiovascular: Reports chest pain Respiratory Respiratory: Denies chest congestion and Denies cough Gastrointestinal Gastrointestinal: Denies abdominal pain, Denies nausea and Denies vomiting Musculoskeletal Musculoskeletal: Reports as per HPI, Reports back pain and Reports myalgias Integumentary/Breasts Skin/Breast: Reports wounds Neurologic Neurologic: Denies vertigo and Denies dizziness Patient History Medical History Cervical spine arthritis with nerve pain COPD (chronic obstructive pulmonary disease) Depression HPV (human papilloma virus) anogenital infection Hyperlipidemia Hypertension Insulin dependent type 2 diabetes mellitus Multiple sclerosis Surgical History Status post decompression of compartment syndrome Family History Father Medical history unknown Mother Alzheimer's dementia Grandmother Alzheimer's dementia Brother Diabetes mellitus Brain tumor Social History household members: children Smoking Status: Current every day smoker alcohol intake: current Smoking Status: Current every day smoker tobacco type: cigarettes alcohol intake frequency: 0-2 drinks per day Substance Use Type: marijuana and methamphetamine Exam Initial Vital Signs Initial Vital Signs: Vital Signs Temperature 97.4 F L 01/15/21 18:45 Pulse Rate 118 H 01/15/21 18:45 Respiratory Rate 22 01/15/21 18:45 Blood Pressure 140/78 01/15/21 18:45 Pulse Oximetry 98 01/15/21 18:45 GENERAL: 55-year-old female appears older than stated age HEENT: Head atraumatic,EOMI, left eye mild drainage lower lid stye, mild sinus tenderness Left-sided neck is he erythematous slightly more swollen, tender to touch no obvious fluctuation no cervical lymphadenopathy appreciated CARDIOVASCULAR: Regular rate and rhythm without murmurs, rubs or gallops. RESPIRATORY: Breath sounds equal bilaterally, no wheezes rales or rhonchi. ABDOMEN: Soft, nontender. Normoactive bowel sounds all 4 quadrants. No guarding or rebound. EXTREMITIES: Normal range of motion, no clubbing or edema. Neurovascularly intact NEUROLOGICAL: Alert and oriented x4.Normal gait and speech. Sensation in lower extremities intact moving both extremities equally SKIN: No oils or lesions seen in scalp for she complains that they are. She does have erythema of her left neck. Course Orders Ordered: ED Orders 01/15/21 19:45 Complete Blood Count AUTO DIFF Stat Comprehensive Metabolic Panel Stat Hemoglobin A1C% w Est Avg Glu Urgent Lactate (Lactic Acid) Stat Magnesium Urgent Procalcitonin Stat Troponin & CK Cardiac Panel Stat 01/15/21 20:30 Blood Culture Stat 01/15/21 21:45 COVID19 - ADMIT ([employer] swab/PCR) Stat 01/15/21 22:45 Urinalysis and Microscopic Stat 01/15/21 23:04 Education, smoking cessation ONGOING 01/16/21 05:00 Complete Blood Count AUTO DIFF DAILY Comprehensive Metabolic Panel DAILY 01/17/21 05:00 Complete Blood Count AUTO DIFF DAILY Comprehensive Metabolic Panel DAILY Acetaminophen (Acetaminophen 325 Mg Tablet) 650 mg PO Q6HR PRN PRN Reason: Fever/Mild Pain (1-3) Al Hydrox/Mg Hydrox/Simethicone (Mag Hydrox/Alum/Simeth 30 Ml Udc) 30 ml PO Q6HR PRN PRN Reason: Dyspepsia Dextrose (Dextrose 50 % In Water 25 Gm/50 Ml Syringe) 25 gm IV PRN PRN PRN Reason: Hypoglycemia Heparin Sodium (Porcine) (Heparin 5,000 Unit/Ml Vial) 5,000 unit SUBCUT BID JORGE Lactated Ringer's (Lactated Ringers) 1,000 mls @ 100 mls/hr IV CONT JORGE Last Admin: 01/16/21 00:00 Dose: 100 mls/hr Documented by: VHARDIN Metronidazole (Flagyl) 500 mg in 100 mls @ 100 mls/hr IV Q8H JORGE Insulin Human Lispro (Insulin Lispro 100 Unit/Ml 3ml Vial) 0 unit SUBCUT ACHS JORGE; Protocol Ketorolac Tromethamine (Ketorolac 30 Mg/Ml Vial) 30 mg IV Q6HR PRN PRN Reason: Pain, Severe (7-10) Stop: 01/20/21 23:09 Naloxone HCl (Naloxone 0.4 Mg/Ml Vial) 0.2 mg IV Q2MIN PRN PRN Reason: Opiate Reversal Ondansetron HCl (Ondansetron 4 Mg Odt) 4 mg PO Q8HR PRN PRN Reason: Nausea And Vomiting Discontinued Medications Sodium Chloride (Normal Saline 0.9%) 1,000 mls @ 1,000 mls/hr IV CONT JORGE Last Infusion: 01/15/21 21:00 Dose: 0 mls/hr Documented by: Admin: 01/15/21 19:52 Dose: 1,000 mls/hr Documented by: MARICARMEN Sodium Chloride (Normal Saline 0.9%) 1,000 mls @ 1,000 mls/hr IV BOLUS ONE Stop: 01/15/21 21:51 Last Infusion: 01/15/21 22:40 Dose: 0 mls/hr Documented by: Admin: 01/15/21 21:01 Dose: 1,000 mls/hr Documented by: NATHANIEL Vancomycin HCl (Vancomycin) 1,250 mg in 250 mls @ 250 mls/hr IV NOW ONE Stop: 01/15/21 22:31 Last Infusion: 01/16/21 00:01 Dose: 250 mls/hr Documented by: Admin: 01/15/21 23:18 Dose: 250 mls/hr Documented by: MARICARMEN Piperacillin Sod/Tazobactam (Sod 4.5 gm/ Sodium Chloride) 100 mls @ 200 mls/hr IV NOW ONE Stop: 01/15/21 21:33 Last Admin: 01/15/21 23:22 Dose: Not Given Documented by: MARICARMEN Meropenem 2 gm/ Sodium (Chloride) 100 mls @ 200 mls/hr IV NOW ONE Stop: 01/15/21 21:38 Last Infusion: 09/12/21 23:21 Dose: 0 mls/hr Documented by: Admin: 01/15/21 22:40 Dose: 200 mls/hr Documented by: MARICARMEN Ketorolac Tromethamine (Ketorolac 30 Mg/Ml Vial) 30 mg IV NOW ONE Stop: 01/15/21 19:10 Last Admin: 01/15/21 19:52 Dose: 30 mg Documented by: MARICARMEN Vital Signs Vital signs: Vital Signs - 8 hr 01/15/21 20:57 01/15/21 21:00 01/15/21 21:03 Pulse Rate 97 H 96 H 95 H Blood Pressure 127/79 Pulse Oximetry 99 98 98 01/15/21 21:30 01/15/21 22:00 01/15/21 22:30 Pulse Rate 94 H 94 H 93 H Blood Pressure 125/76 102/50 L Pulse Oximetry 98 98 99 01/15/21 22:31 01/15/21 23:00 01/15/21 23:04 Pulse Rate 94 H 91 H Blood Pressure 141/69 H Pulse Oximetry 96 97 99 MDM - Skin/Abscess/Foreign Bdy Lab Data Result diagrams: 01/15/21 19:45 01/15/21 19:45 Labs: Lab Results 01/15/21 01/15/21 01/15/21 Range/Units 19:45 19:45 19:45 WBC 23.4 H (4.5-11.0) X10^3/uL RBC 4.54 (4.0-5.2) X10^6/uL Hgb 13.2 (12.0-16.0) g/dL Hct 39.5 (36-46) % MCV 87.0 (80-100) fL MCH 29.2 (26-34) PG MCHC 33.5 (30-36) % RDW 12.7 (11.6-14.8) % Plt Count 286 (150-400) X10^3/uL Neut % (Auto) 84.6 H (50-75) % Lymph % (Auto) 8.7 L (25-40) % [place] % (Auto) 5.9 (3-14) % Eos % (Auto) 0.5 L (2-4) % Baso % (Auto) 0.3 (0-2) % Neut # (Auto) 01226 H (6966-1563) /uL Lymph # (Auto) 2000 (1986-5304) /uL [place] # (Auto) 1400 H (0-900) /uL Eos # (Auto) 100 (0-450) /uL Baso # (Auto) 100 (0-100) /uL Sodium 133 L (137-145) mmol/L Potassium 4.1 (3.4-5.1) mmol/L Chloride 98 (98-107) mmol/L Carbon Dioxide 27 (22-32) mmol/L BUN 24 H (7-17) mg/dL Creatinine 1.12 H (0.52-1.04) mg/dL Estimated GFR 50.7 L (>60) mL/min BUN/Creatinine Ratio 21.4 (6-22) Glucose 340 H (70-100) mg/dL Hemoglobin A1c (4.0-6.0) % Lactate 3.1 H (0.7-2.1) mmol/L Calcium 9.6 (8.4-10.2) mg/dL Magnesium (1.6-2.3) mg/dL Total Bilirubin 0.6 (0.2-1.3) mg/dL AST 24 (14-36) IU/L ALT 19 (<35) IU/L Alkaline Phosphatase 111 (38-126) U/L Total Creatine Kinase 169 H (30-135) U/L CK-MB (CK-2) 1.37 (<2.37) ng/mL CK-MB (CK-2) Rel Index 0.8 L (1.5-5.0) % Troponin I < 0.012 (0.01-0.034) ng/mL Total Protein 7.6 (6.3-8.2) g/dL Albumin 4.3 (3.5-5.0) g/dL Globulin 3.3 (1.7-4.1) g/dL Albumin/Globulin Ratio 1.3 (1.0-2.8) Procalcitonin 0.09 (<0.5) ng/mL Urine Color Urine Appearance Urine pH (4.5-8.0) Ur Specific [place] (1.000-1.035) Urine Protein (Negative) Urine Glucose (UA) (Negative) g/dL Urine Ketones (NEGATIVE) Urine Occult Blood (Negative) Urine Nitrate (Negative) Urine Bilirubin (NEGATIVE) Urine Urobilinogen (0.2) E.U./dL Ur Leukocyte Esterase (NEGATIVE) Urine RBC (0-5/HPF) Urine WBC (0-5/HPF) Ur Squamous Epith Cells (0-5/HPF) Urine Bacteria (None) Ur Culture Indicated? SARS-CoV-2 (PCR) (Negative) 01/15/21 01/15/21 01/15/21 Range/Units 19:45 19:45 21:45 WBC (4.5-11.0) X10^3/uL RBC (4.0-5.2) X10^6/uL Hgb (12.0-16.0) g/dL Hct (36-46) % MCV (80-100) fL MCH (26-34) PG MCHC (30-36) % RDW (11.6-14.8) % Plt Count (150-400) X10^3/uL Neut % (Auto) (50-75) % Lymph % (Auto) (25-40) % [place] % (Auto) (3-14) % Eos % (Auto) (2-4) % Baso % (Auto) (0-2) % Neut # (Auto) (9128-1287) /uL Lymph # (Auto) (5866-1765) /uL [place] # (Auto) (0-900) /uL Eos # (Auto) (0-450) /uL Baso # (Auto) (0-100) /uL Sodium (137-145) mmol/L Potassium (3.4-5.1) mmol/L Chloride (98-107) mmol/L Carbon Dioxide (22-32) mmol/L BUN (7-17) mg/dL Creatinine (0.52-1.04) mg/dL Estimated GFR (>60) mL/min BUN/Creatinine Ratio (6-22) Glucose (70-100) mg/dL Hemoglobin A1c 7.9 H (4.0-6.0) % Lactate (0.7-2.1) mmol/L Calcium (8.4-10.2) mg/dL Magnesium 1.7 (1.6-2.3) mg/dL Total Bilirubin (0.2-1.3) mg/dL AST (14-36) IU/L ALT (<35) IU/L Alkaline Phosphatase (38-126) U/L Total Creatine Kinase (30-135) U/L CK-MB (CK-2) (<2.37) ng/mL CK-MB (CK-2) Rel Index (1.5-5.0) % Troponin I (0.01-0.034) ng/mL Total Protein (6.3-8.2) g/dL Albumin (3.5-5.0) g/dL Globulin (1.7-4.1) g/dL Albumin/Globulin Ratio (1.0-2.8) Procalcitonin (<0.5) ng/mL Urine Color Urine Appearance Urine pH (4.5-8.0) Ur Specific [place] (1.000-1.035) Urine Protein (Negative) Urine Glucose (UA) (Negative) g/dL Urine Ketones (NEGATIVE) Urine Occult Blood (Negative) Urine Nitrate (Negative) Urine Bilirubin (NEGATIVE) Urine Urobilinogen (0.2) E.U./dL Ur Leukocyte Esterase (NEGATIVE) Urine RBC (0-5/HPF) Urine WBC (0-5/HPF) Ur Squamous Epith Cells (0-5/HPF) Urine Bacteria (None) Ur Culture Indicated? SARS-CoV-2 (PCR) Negative (Negative) 01/15/21 01/15/21 Range/Units 22:20 22:45 WBC (4.5-11.0) X10^3/uL RBC (4.0-5.2) X10^6/uL Hgb (12.0-16.0) g/dL Hct (36-46) % MCV (80-100) fL MCH (26-34) PG MCHC (30-36) % RDW (11.6-14.8) % Plt Count (150-400) X10^3/uL Neut % (Auto) (50-75) % Lymph % (Auto) (25-40) % [place] % (Auto) (3-14) % Eos % (Auto) (2-4) % Baso % (Auto) (0-2) % Neut # (Auto) (5425-6471) /uL Lymph # (Auto) (9840-1221) /uL [place] # (Auto) (0-900) /uL Eos # (Auto) (0-450) /uL Baso # (Auto) (0-100) /uL Sodium (137-145) mmol/L Potassium (3.4-5.1) mmol/L Chloride (98-107) mmol/L Carbon Dioxide (22-32) mmol/L BUN (7-17) mg/dL Creatinine (0.52-1.04) mg/dL Estimated GFR (>60) mL/min BUN/Creatinine Ratio (6-22) Glucose (70-100) mg/dL Hemoglobin A1c (4.0-6.0) % Lactate 1.6 (0.7-2.1) mmol/L Calcium (8.4-10.2) mg/dL Magnesium (1.6-2.3) mg/dL Total Bilirubin (0.2-1.3) mg/dL AST (14-36) IU/L ALT (<35) IU/L Alkaline Phosphatase (38-126) U/L Total Creatine Kinase (30-135) U/L CK-MB (CK-2) (<2.37) ng/mL CK-MB (CK-2) Rel Index (1.5-5.0) % Troponin I (0.01-0.034) ng/mL Total Protein (6.3-8.2) g/dL Albumin (3.5-5.0) g/dL Globulin (1.7-4.1) g/dL Albumin/Globulin Ratio (1.0-2.8) Procalcitonin (<0.5) ng/mL Urine Color Yellow Urine Appearance Clear Urine pH 7.0 (4.5-8.0) Ur Specific [place] <=1.005 (1.000-1.035) Urine Protein Negative (Negative) Urine Glucose (UA) 1+ H (Negative) g/dL Urine Ketones Negative (NEGATIVE) Urine Occult Blood Negative (Negative) Urine Nitrate Negative (Negative) Urine Bilirubin Negative (NEGATIVE) Urine Urobilinogen 0.2 (0.2) E.U./dL Ur Leukocyte Esterase Negative (NEGATIVE) Urine RBC None seen (0-5/HPF) Urine WBC 0-1/hpf (0-5/HPF) Ur Squamous Epith Cells 1-5 /hpf (0-5/HPF) Urine Bacteria None seen (None) Ur Culture Indicated? Cult not indicated SARS-CoV-2 (PCR) (Negative) Urine Dip Bedside Urine Glucose Negative Bedside Urine Bilirubin - Negative Bedside Urine Ketone - Negative Urine Specific [place] 1.010 Bedside Urine Occult Blood - Negative Bedside Urine pH 6.5 Bedside Urine Protein - Negative Bedside Urine Urobilinogen - Negative Bedside Urine Nitrite - Negative Bedside Urine Leukocytes - Negative Esterase Imaging Data CT soft tissue Neck: Radiologist's Impression: PROCEDURE:? CT SOFT TISSUE NECK W CON ? INDICATIONS:? left neck swelling ? TECHNIQUE:? After the administration of intravenous contrast, 3.0 mm axial sections acquired from the sella to the aortic arch.? Additional oblique axial 3.0 mm sections acquired through the pharynx.? 3 mm thick coronal and sagittal reformats were generated.? For radiation dose reduction, the following was used:? automated exposure control.? ? COMPARISON:? None. ? FINDINGS:? Image quality:? Excellent.? ? Lymph nodes:? No enlarged lymph nodes seen throughout the neck.? Multiple mildly prominent left level II and III cervical lymph nodes measuring less 10 mm short axis ? Vessels:? Visualized vasculature appears patent.? ? Neck spaces:? The oropharynx, nasopharynx, and pharynx demonstrate no mucosal lesions.? The vocal cords, false vocal cords, pyriform sinuses, epiglottis, vallecula, and tongue base all appear normal.? Mild subcutaneous fat stranding within the left mid and upper. ? Glands:? The parotid and submandibular glands appear normal.? Thyroid gland demonstrates 11 mm nodule within the right lobe anteriorly.? ? Miscellaneous:? Visualized brain and orbits appear normal.? Lung apices appear clear.? Superficial soft tissues appear normal. ? Bones:? No suspicious bony lesions.? Visualized sinuses and mastoids appear unremarkable. ? ? ? IMPRESSION:? 1. left neck cellulitis without abscess.? Reactive left cervical lymph node enlargement. 2. Right thyroid nodule.? Initial further assessment with nonemergent outpatient follow-up thyroid ultrasound is recommended.? ? ? Dictated by: Deshaun Penn M.D. on 01/15/2021 at 21:14 ?? Chest x-ray: Radiologist's Impression: PROCEDURE:? XR CHEST 1V ? INDICATIONS:? chest pain ? TECHNIQUE:? One view of the chest was acquired.? ? COMPARISON:? None. ? FINDINGS:? ? Surgical changes and devices:? None.? ? Lungs and pleura:? Lungs are clear.? No pleural effusions or pneumothorax.? ? Mediastinum:? Mediastinal contours appear normal.? Heart size is normal.? ? Bones and chest wall:? No suspicious bony lesions.? Overlying soft tissues appear unremarkable.? ? IMPRESSION:? No acute process.? ? ? Dictated by: Deshaun Penn M.D. on 01/15/2021 at 19:54 ? ? ECG Data Interpretation: Sinus tachycardia rate 1 1 MI interval 146 QRS [address] changes no priors to compare MDM Narrative Medical decision making narrative: Patient has variety of multiple complaints. But she does erythema and swelling of the left side of her neck. CT does not show any abscess but it does show cellulitis. She has no airway compromise. She Is found to have leukocytosis of 23,000 along with a lactic acid of 3.1. She is given vancomycin and Zosyn. No signs of severe sepsis. Not hypotensive does not need sepsis fluids, but she is given boluses for lactate 3.1, and the repeat is 1.6 Jaskaran ARNPupdated on patient's symptoms test results and accepts patient Discharge Plan Departure Patient Disposition: Admitted As Inpatient Clinical Impression: Cellulitis of neck Admit Date/Time: 01/15/21 23:59 Admit Provider: Moraima Jessica
--- NOTE | 2021-01-15 19:07 | DI.RAD.S_ITS ---
PROCEDURE: XR CHEST 1V INDICATIONS: chest pain TECHNIQUE: One view of the chest was acquired. COMPARISON: None. FINDINGS: Surgical changes and devices: None. Lungs and pleura: Lungs are clear. No pleural effusions or pneumothorax. Mediastinum: Mediastinal contours appear normal. Heart size is normal. Bones and chest wall: No suspicious bony lesions. Overlying soft tissues appear unremarkable. IMPRESSION: No acute process. Dictated by: Deshaun Penn M.D. on 01/15/2021 at 19:54 Approved by: Deshanu Penn M.D. on 01/15/2021 at 19:54
--- NOTE | 2021-01-15 19:07 | DI.CT.S_ITS ---
PROCEDURE: CT SOFT TISSUE NECK W CON INDICATIONS: left neck swelling TECHNIQUE: After the administration of intravenous contrast, 3.0 mm axial sections acquired from the sella to the aortic arch. Additional oblique axial 3.0 mm sections acquired through the pharynx. 3 mm thick coronal and sagittal reformats were generated. For radiation dose reduction, the following was used: automated exposure control. COMPARISON: None. FINDINGS: Image quality: Excellent. Lymph nodes: No enlarged lymph nodes seen throughout the neck. Multiple mildly prominent left level II and III cervical lymph nodes measuring less 10 mm short axis Vessels: Visualized vasculature appears patent. Neck spaces: The oropharynx, nasopharynx, and pharynx demonstrate no mucosal lesions. The vocal cords, false vocal cords, pyriform sinuses, epiglottis, vallecula, and tongue base all appear normal. Mild subcutaneous fat stranding within the left mid and upper. Glands: The parotid and submandibular glands appear normal. Thyroid gland demonstrates 11 mm nodule within the right lobe anteriorly. Miscellaneous: Visualized brain and orbits appear normal. Lung apices appear clear. Superficial soft tissues appear normal. Bones: No suspicious bony lesions. Visualized sinuses and mastoids appear unremarkable. IMPRESSION: 1. left neck cellulitis without abscess. Reactive left cervical lymph node enlargement. 2. Right thyroid nodule. Initial further assessment with nonemergent outpatient follow-up thyroid ultrasound is recommended. Dictated by: Deshaun Penn M.D. on 01/15/2021 at 21:14 Approved by: Deshaun Penn M.D. on 01/15/2021 at 21:16
[2021-01-15] MEDS: SODIUM CHLORIDE 0.9% 1,000 ML 1000 ML IV ×2 (19:52→21:01)
[2021-01-15] MEDS: KETOROLAC 30 MG/ML VIAL IV (19:52)
[2021-01-15 20:17] LABS: Add Manual Diff / Slide Review NO; Basophils Absolute Auto 100 /uL (0-100); Basophils Percent Auto 0.3 % (0-2); Eosinophils Absolute Auto 100 /uL (0-450); Eosinophils Percent Auto 0.5 % (2-4); Hematocrit 39.5 % (36-46); Hemoglobin 13.2 g/dL (12.0-16.0); Lymphocytes Absolute Auto 2000 /uL (1100-4500); Lymphocytes Percent Auto 8.7 % (25-40); Mean Corpuscular HGB Conc 33.5 % (30-36); Mean Corpuscular Hemoglobin 29.2 PG (26-34); Monocytes Absolute Auto 1400 /uL (0-900); Monocytes Percent Auto 5.9 % (3-14); Neutrophils Absolute Auto 19800 /uL (1500-7000); Neutrophils Percent Auto 84.6 % (50-75); Platelet Count 286 X10^3/uL (150-400); Red Blood Cell Count 4.54 X10^6/uL (4.0-5.2); Red Cell Distribution Width 12.7 % (11.6-14.8); White Blood Cell Count 23.4 X10^3/uL (4.5-11.0)
[2021-01-15 20:35] LABS: Lactate (Lactic Acid) 3.1 mmol/L (0.7-2.1)
[2021-01-15 20:36] LABS: Alanine Aminotransferase 19 IU/L (<35); Albumin 4.3 g/dL (3.5-5.0); Albumin Globulin Ratio 1.3 (1.0-2.8); Alkaline Phosphatase 111 U/L (38-126); Aspartate Aminotransferase 24 IU/L (14-36); BUN Creatinine Ratio 21.4 (6-22); Bilirubin Total 0.6 mg/dL (0.2-1.3); Blood Urea Nitrogen 24 mg/dL (7-17); Calcium 9.6 mg/dL (8.4-10.2); Carbon Dioxide 27 mmol/L (22-32); Chloride 98 mmol/L (98-107); Creatine Kinase 169 U/L (30-135); Estimated Glomerular Filt Rate 50.7 mL/min (>60); Globulin 3.3 g/dL (1.7-4.1); Glucose 340 mg/dL (70-100); HEMOLYSIS < 15 (0-50); Potassium 4.1 mmol/L (3.4-5.1); Sodium 133 mmol/L (137-145); Total Protein 7.6 g/dL (6.3-8.2)
[2021-01-15 20:48] LABS: Troponin I < 0.012 ng/mL (0.01-0.034)
[2021-01-15 20:51] LABS: CKMB % Relative Index 0.8 % (1.5-5.0); Creatine Kinase MB 1.37 ng/mL (<2.37)
[2021-01-15 20:53] LABS: Procalcitonin 0.09 ng/mL (<0.5)
[2021-01-15 22:14] LABS: Reflexed Lactate in 2 Hours Y
[2021-01-15] MEDS: MEROPENEM 2 GM in SODIUM CHLORIDE 0.9% 100 ML 200 ML IV (22:40)
[2021-01-15 22:41] LABS: Lactate 2HR (Lactic Acid Rflx) 1.6 mmol/L (0.7-2.1)
[2021-01-15 23:01] LABS: Bacteria Urine None Seen; RBC Urine None Seen (0-5/HPF)
[2021-01-15 23:02] LABS: Appearance Urine UA CLEAR; Bilirubin Urine UA NEGATIVE (NEGATIVE); Color Urine UA YELLOW; Glucose Urine UA 1+ g/dL (Negative); Ketones Urine UA NEGATIVE (NEGATIVE); Leukocyte Esterase Urine UA NEGATIVE (NEGATIVE); Nitrite Urine UA NEGATIVE (Negative); Occult Blood Urine UA NEGATIVE (Negative); Protein Urine UA NEGATIVE (Negative); Specific Gravity Urine UA <=1.005 (1.000-1.035); Urobilinogen Urine UA 0.2 E.U./dL (0.2)
[2021-01-15] MEDS: VANCOMYCIN 1,250 MG/250 ML PIGGYBACK 250 MG IV (23:18)
[2021-01-16] VITALS (12 sets, daily range): BP systolic 129–153; BP diastolic 73–87; PULSE 80–89; RESP 18–20; TEMP 36.1–36.8; O2SAT 96–100; BMI 29.0
[2021-01-16] MEDS: LACTATED RINGERS 1,000 ML 100 ML IV
[2021-01-16 00:19] LABS: Magnesium 1.7 mg/dL (1.6-2.3)
[2021-01-16 00:21] LABS: Squamous Epithelial Cell Urine 1-5 /HPF (0-5/HPF)
[2021-01-16 00:22] LABS: Culture Indicated Urine Cult Not Indicated; WBC Urine 0-1/HPF (0-5/HPF)
[2021-01-16 00:25] LABS: Hemoglobin A1C% w Est Avg Glu 7.9 % (4.0-6.0)
[2021-01-16 00:46] LABS: COVID19 - ADMIT (NP swab/PCR) Negative (Negative)
[2021-01-16] MEDS: metroNIDAZOLE 500 MG/100 ML PIGGYBACK 100 MG IV (04:43)
--- NOTE | 2021-01-16 05:12 | P.HP_ITS ---
History of Present Illness History of Present Illness Date Patient Seen: 01/15/21 Time Patient Seen: 23:27 Chief complaint: LEFT LEG PAIN LEFT EYE PAIN AND NECK Narrative: Patient is a 55-year-old female Sheyla Jolley with a history of methamphetamine use, chronic back pain, insulin dependent type II DM, COPD who presented today to the ED with a compliant of left sided neck swelling and additional multiple complaints.? She has been having swelling on the left side of her neck for the past couple of days very tender to touch.? She feels like her voice is raspy, and complains of difficulty swallowing & breathing, though she is drinking fluids, sating 98% on room air, and is managing her own secretions without difficulty.? Today she developed drainage from her left eye as well she feels like she has a sinus infection.? Also feels like she has boils on the top of her head.? She has been on steroid for her left sciatic pain that has been going on for a week and a half.? She continues to have pain in that left leg, but no new numbness tingling or weakness.? She thinks the sciatic was aggravated by her new stick shift in her car. ? Upon admit to the floor patient is stable and in no distress at this time. Patient's main complaint is regarding her left-sided neck swelling that she says started a few days ago but became so painful last night she was unable to move her neck. It should be noted that patient is quite restless moving about and turning her head getting up off the bed and back on without any difficulty during admit. Patient also continues to complain difficulty breathing and difficulty swallowing while drinking her soda and satting consistently 98-99% on room air. Patient notes that she only smokes methamphetamines once a day. Patient also a pus filled Boil to the inner right thigh that she says ruptured and drained few days ago and has a scab present. Patient also complains worsening acid reflux slightly because she has been under increased stress for the past week. Patient is COVID vaccinated. Upon admit patient denies chest pain, abdominal pain, nausea vomiting, body aches, chills fever, headache, changes in vision, hematemesis, melena, hematuria, recent illness injury or trauma. Patient's vitals upon admit temp 97.4?, BP 143/79, HR 96, RR 22, O2 saturation 98% on room air. Patient has an elevated WBC 23.4, neutrophils 19,000, lactate 1.6 Patient has a mild hyponatremia Na 133, BUN 24 creatinine 1.12, and GFR 50.7 both of these are improved from previous visit, glucose 340, procalcitonin 0.09, total creatinine kinase 169, troponin negative, sofa score:0, Anion gap:0 patient is not septic or in DKA. Patient's soft tissue neck CT demonstrated cellulitis without abscess, chest x-ray was negative for any acute cardiopulmonary processes. Patient admitted for left side neck cellulitis without abscess. Patient History Medical History Cervical spine arthritis with nerve pain COPD (chronic obstructive pulmonary disease) Depression HPV (human papilloma virus) anogenital infection Hyperlipidemia Hypertension Insulin dependent type 2 diabetes mellitus Multiple sclerosis Surgical History Status post decompression of compartment syndrome Family & Social History Family History Father Medical history unknown Mother Alzheimer's dementia Grandmother Alzheimer's dementia Brother Diabetes mellitus Brain tumor Social History: household members children Prior Living Arrangements Apartment/Condo Safety & Behavioral: Feels Safe in Current Yes Environment Been Physically Hurt or No Threatened By a Person Suicidal Ideation Description None Suicide Plan Description No Plan Tobacco & Substance use: Tobacco type cigarettes,cannabis/marijuana Smoking Status Current every day smoker Smoking packs per day 1 alcohol intake current alcohol intake frequency 0-2 drinks per day Substance Use Type marijuana,methamphetamine Meds Home Medications and Allergies Home Medications Medication Instructions Recorded Confirmed Type albuterol sulfate 90 mcg/actuation 1 puff INHALATION PRN PRN #8 gram 07/15/18 08/31/20 History aerosol inhaler fluticasone propionate 50 50 mcg NASAL 1-2XD #16 gram 07/15/18 08/31/20 History mcg/actuation nasal spray,suspension metformin 500 mg tablet 500 mg PO BID #120 tab 07/15/18 08/31/20 History bupropion HCl 300 mg 24 hr tablet, 300 mg PO DAILY 08/31/20 08/31/20 History extended release insulin glargine 100 unit/mL (3 20 unit SUBCUT DAILY #0 ml 09/02/20 08/31/20 Rx mL) subcutaneous pen (Lantus Solostar U-100 Insulin) Allergies Allergy/AdvReac Type Severity Reaction Status Date / Time acetaminophen [From Vicodin] Allergy Verified 01/15/21 18:45 cephalexin Allergy Verified 01/15/21 18:45 ciprofloxacin [From Cipro] Allergy Verified 01/15/21 18:45 codeine Allergy Verified 01/15/21 18:45 doxycycline Allergy Verified 01/15/21 18:45 hydrocodone [From Vicodin] Allergy Verified 01/15/21 18:45 penicillin V Allergy Verified 01/15/21 18:45 sulfamethoxazole Allergy Verified 01/15/21 18:45 [From Bactrim] trimethoprim [From Bactrim] Allergy Verified 01/15/21 18:45 Review of Systems Review of Systems Narrative: All 12 point systems reviewed with the patient and are negative except otherwise documented. Exam Vital Signs (past 8 hours): - 01/15/21 21:30 01/15/21 22:00 01/15/21 22:30 Temperature Pulse Rate 94 H 94 H 93 H Respiratory Rate Blood Pressure 125/76 102/50 L Pulse Oximetry 98 98 99 01/15/21 22:31 01/15/21 23:00 01/15/21 23:04 Temperature Pulse Rate 94 H 91 H Respiratory Rate Blood Pressure 141/69 H Pulse Oximetry 96 97 99 01/16/21 00:00 01/16/21 04:29 Temperature 98.2 F 98.1 F Pulse Rate 85 86 Respiratory Rate 20 18 Blood Pressure 141/76 H 144/80 H Pulse Oximetry 98 99 Oxygen Delivery Method Room Air Oxygen Flow Rate 0 Narrative Exam Narrative: GENERAL:? 55-year-old female appears older than stated age HEENT: Head atraumatic,EOMI, left eye mild drainage lower lid stye, mild sinus tenderness Left-sided neck is he erythematous slightly more swollen, tender to touch no obvious fluctuation no cervical/auricular lymphadenopathy appreciated, patient airway is protected. CARDIOVASCULAR: Regular rate and rhythm without murmurs, rubs or gallops. RESPIRATORY: Breath sounds equal bilaterally, no wheezes rales or rhonchi. ABDOMEN: Soft, nontender.? Normoactive bowel sounds all 4 quadrants.? No guarding or rebound. EXTREMITIES: Normal range of motion, no clubbing or edema.? Neurovascularly intact NEUROLOGICAL: Alert and oriented x4.Normal gait and speech.? Sensation in lower extremities intact moving both extremities equally SKIN:? No oils or lesions seen in scalp for she complains that they are.? She do es have erythema of her left neck. Objective Labs Result Diagrams: 01/15/21 19:45 01/15/21 19:45 Labs: Laboratory Results - last 24 hr 01/15/21 01/15/21 01/15/21 19:45 19:45 19:45 WBC 23.4 H RBC 4.54 Hgb 13.2 Hct 39.5 MCV 87.0 MCH 29.2 MCHC 33.5 RDW 12.7 Plt Count 286 Neut % (Auto) 84.6 H Lymph % (Auto) 8.7 L [place] % (Auto) 5.9 Eos % (Auto) 0.5 L Baso % (Auto) 0.3 Neut # (Auto) 23961 H Lymph # (Auto) 2000 [place] # (Auto) 1400 H Eos # (Auto) 100 Baso # (Auto) 100 Sodium 133 L Potassium 4.1 Chloride 98 Carbon Dioxide 27 BUN 24 H Creatinine 1.12 H Estimated GFR 50.7 L BUN/Creatinine Ratio 21.4 Glucose 340 H Hemoglobin A1c Lactate 3.1 H Calcium 9.6 Magnesium Total Bilirubin 0.6 AST 24 ALT 19 Alkaline Phosphatase 111 Total Creatine Kinase 169 H CK-MB (CK-2) 1.37 CK-MB (CK-2) Rel Index 0.8 L Troponin I < 0.012 Total Protein 7.6 Albumin 4.3 Globulin 3.3 Albumin/Globulin Ratio 1.3 Procalcitonin 0.09 Urine Color Urine Appearance Urine pH Ur Specific [place] Urine Protein Urine Glucose (UA) Urine Ketones Urine Occult Blood Urine Nitrate Urine Bilirubin Urine Urobilinogen Ur Leukocyte Esterase Urine RBC Urine WBC Ur Squamous Epith Cells Urine Bacteria Ur Culture Indicated? Nasal Screen MRSA (PCR) SARS-CoV-2 (PCR) 01/15/21 01/15/21 01/15/21 19:45 19:45 21:45 WBC RBC Hgb Hct MCV MCH MCHC RDW Plt Count Neut % (Auto) Lymph % (Auto) [place] % (Auto) Eos % (Auto) Baso % (Auto) Neut # (Auto) Lymph # (Auto) [place] # (Auto) Eos # (Auto) Baso # (Auto) Sodium Potassium Chloride Carbon Dioxide BUN Creatinine Estimated GFR BUN/Creatinine Ratio Glucose Hemoglobin A1c 7.9 H Lactate Calcium Magnesium 1.7 Total Bilirubin AST ALT Alkaline Phosphatase Total Creatine Kinase CK-MB (CK-2) CK-MB (CK-2) Rel Index Troponin I Total Protein Albumin Globulin Albumin/Globulin Ratio Procalcitonin Urine Color Urine Appearance Urine pH Ur Specific [place] Urine Protein Urine Glucose (UA) Urine Ketones Urine Occult Blood Urine Nitrate Urine Bilirubin Urine Urobilinogen Ur Leukocyte Esterase Urine RBC Urine WBC Ur Squamous Epith Cells Urine Bacteria Ur Culture Indicated? Nasal Screen MRSA (PCR) SARS-CoV-2 (PCR) Negative 01/15/21 01/15/21 01/16/21 22:20 22:45 01:30 WBC RBC Hgb Hct MCV MCH MCHC RDW Plt Count Neut % (Auto) Lymph % (Auto) [place] % (Auto) Eos % (Auto) Baso % (Auto) Neut # (Auto) Lymph # (Auto) [place] # (Auto) Eos # (Auto) Baso # (Auto) Sodium Potassium Chloride Carbon Dioxide BUN Creatinine Estimated GFR BUN/Creatinine Ratio Glucose Hemoglobin A1c Lactate 1.6 Calcium Magnesium Total Bilirubin AST ALT Alkaline Phosphatase Total Creatine Kinase CK-MB (CK-2) CK-MB (CK-2) Rel Index Troponin I Total Protein Albumin Globulin Albumin/Globulin Ratio Procalcitonin Urine Color Yellow Urine Appearance Clear Urine pH 7.0 Ur Specific [place] <=1.005 Urine Protein Negative Urine Glucose (UA) 1+ H Urine Ketones Negative Urine Occult Blood Negative Urine Nitrate Negative Urine Bilirubin Negative Urine Urobilinogen 0.2 Ur Leukocyte Esterase Negative Urine RBC None seen Urine WBC 0-1/hpf Ur Squamous Epith Cells 1-5 /hpf Urine Bacteria None seen Ur Culture Indicated? Cult not indicated Nasal Screen MRSA (PCR) Positive for mrsa H SARS-CoV-2 (PCR) Assessment & Plan Assessment & Plan narrative: This patient is a 55-year-old female who was a current daily smoker of amphetamines with a past medical history significant for multiple sclerosis manifested with cognitive impairment, hypertension, hyperlipidemia, COPD, insulin-dependent diabetes type 2, cervical arthritis with intermittent left arm paresthesias, anxiety and depression who presents to the ER for worsening symptoms of left neck cellulitis 1. Left neck cellulitis, with leukocytosis acute, present on admission -WBC 23.4, neutrophils 19,000, lactate 1.6, Na 133, procalcitonin 0.09, total creatinine kinase 169, troponin negative, sofa score:0, Anion gap:0 -suspect possible IV injection as precipitating factor of cellulitis, or skin picking secondary to methamphetamine abuse. -patient's airway is patent and stable in no distress at this time -patient is not septic or in DKA. Soft tissue neck CT demonstrated cellulitis without abscess -LR at 100 cc/HR -Rocephin 2 g Q 24 hours, Flagyl 500 mg q.8 hours-patient received meropenem and Zosyn in the ED -consider steroids if patient's cellulitis worsens -monitor airway, aspiration precautions, bedside swallow negative -labs ordered: Blood culture wound cultures,MRSA, CBC and CMP in a.m. 2. Left eye conjunctivitis, acute, present on admission -Erythromycin ointment q.i.d. x5 days to left eye -recommend warm moist compresses to left eye to encourage drainage 3. Methamphetamine abuse, acute on chronic, present on admission -patient education and encouragement of methamphetamine cessation 4. Type II Insulin-dependent diabetes uncontrolled with hyperglycemia, acute on chronic, present on admission -patient is frequently noncompliant with her insulins, also exacerbated by methamphetamine abuse -Initial BUN 24 creatinine 1.12, and GFR 50.7 both of these are improved from previous visit, glucose 340 -ordered fingerstick blood sugars a.c. and hs with low-dose correctional insulin. -will continue the patient's home regimen of Lantus 20 units daily and metformin. -diet will be clear liquid small consistent carbohydrate. 5. COPD, chronic, present on admission, stable -patient's airway is stable patent O2 saturation 98% on room air . -continue patient's home albuterol 6. Hyperlipidemia, chronic, stable, present on admission -continue patient's home regimen of atorvastatin 10 mg daily. 7. Hypertension, chronic, stable, present on admission -continue home regimen of lisinopril 10 mg daily. 8. Depression, chronic, stable, present on admission -patient denies suicidal ideation or thoughts self-harm stating she has 2 good counselors whom are helping her. -will continue bupropion XL 300 mg daily.? Code status:? Full code Surrogate decision maker: Daughter COVID PCR: Negative COVID vaccination: Vaccinated DVT/VTE prophylaxis: Heparin 5000 units b.i.d. and SCDs Disposition: Estimated length of stay less than 2 midnights I have utilized all available immediate resources to obtain, update, or review the patient's current medications. I confirmed that the patient's advanced care plan is present, Code status is documented and/or surrogate decision maker is listed in the patient's medical record. Time Spent With Patient Critical Care time: I spent a total of [] minutes of critical care time on this patient's care today; this time is exclusive of procedural time.
[2021-01-16] MEDS: KETOROLAC 30 MG/ML VIAL IV ×3 (05:24→22:14)
[2021-01-16 05:39] LABS: Add Manual Diff / Slide Review NO; Basophils Absolute Auto 100 /uL (0-100); Basophils Percent Auto 0.8 % (0-2); Eosinophils Absolute Auto 300 /uL (0-450); Eosinophils Percent Auto 1.4 % (2-4); Hematocrit 35.2 % (36-46); Hemoglobin 11.7 g/dL (12.0-16.0); Lymphocytes Absolute Auto 2700 /uL (1100-4500); Lymphocytes Percent Auto 14.5 % (25-40); Mean Corpuscular HGB Conc 33.3 % (30-36); Mean Corpuscular Volume 87.1 fL (80-100); Monocytes Absolute Auto 1300 /uL (0-900); Monocytes Percent Auto 6.8 % (3-14); Neutrophils Absolute Auto 14100 /uL (1500-7000); Neutrophils Percent Auto 76.5 % (50-75); Platelet Count 250 X10^3/uL (150-400); Red Blood Cell Count 4.04 X10^6/uL (4.0-5.2); Red Cell Distribution Width 12.7 % (11.6-14.8); White Blood Cell Count 18.4 X10^3/uL (4.5-11.0)
[2021-01-16 05:49] LABS: Alanine Aminotransferase 14 IU/L (<35); Albumin 3.4 g/dL (3.5-5.0); Alkaline Phosphatase 101 U/L (38-126); Aspartate Aminotransferase 19 IU/L (14-36); BUN Creatinine Ratio 22.6 (6-22); Bilirubin Total 0.4 mg/dL (0.2-1.3); Blood Urea Nitrogen 24 mg/dL (7-17); Calcium 8.5 mg/dL (8.4-10.2); Carbon Dioxide 27 mmol/L (22-32); Chloride 102 mmol/L (98-107); Globulin 3.1 g/dL (1.7-4.1); Glucose 225 mg/dL (70-100); Potassium 4.3 mmol/L (3.4-5.1); Sodium 134 mmol/L (137-145); Total Protein 6.5 g/dL (6.3-8.2)
[2021-01-16 05:50] LABS: Albumin Globulin Ratio 1.1 (1.0-2.8); HEMOLYSIS < 15 (0-50)
[2021-01-16] MEDS: HEPARIN 5,000 UNIT/ML VIAL 5000 UNIT SUBCUT ×2 (08:06→20:43)
[2021-01-16] MEDS: cefTRIAXone 1,000 MG in SODIUM CHLORIDE 0.9% 100 ML 200 ML IV (08:06)
[2021-01-16] MEDS: METFORMIN HCL 500 MG TABLET PO (08:06)
[2021-01-16] MEDS: buPROPion XL 150 MG TAB 300 MG PO (08:06)
[2021-01-16] MEDS: INSULIN LISPRO 100 UNIT/ML 3ML VIAL SUBCUT ×4 (08:22→20:52)
[2021-01-16] MEDS: NICOTINE 21 MG PATCH TOP ×2 (10:00→20:43)
[2021-01-16] MEDS: VANCOMYCIN 1,000 MG/200 ML PIGGYBACK 200 MG IV ×2 (11:27→22:48)
[2021-01-16] MEDS: GABAPENTIN 300 MG CAPSULE PO (11:48)
[2021-01-16] MEDS: FAMOTIDINE 20 MG TABLET PO ×2 (11:48→20:43)
[2021-01-16] MEDS: ERYTHROMYCIN OPHTH 1 GM OINT 1 APPLIC EYE-LEFT ×3 (12:36→20:59)
--- NOTE | 2021-01-16 16:30 | PM.PN.1 ---
Subjective Subjective Date Patient Seen: 01/16/21 Interval history: 55-year-old female with history of methamphetamine use, chronic back pain, insulin-dependent type 2 diabetes, COPD admitted with neck cellulitis. Patient complains of pain in the neck and scalp areas. Also has painful spot on the right inner thigh. Complains of reflux symptoms and complains of sciatica for which she previously took gabapentin. Exam Vital Signs (past 8 hours): - 01/16/21 09:25 01/16/21 12:00 01/16/21 13:01 Temperature 97.7 F Pulse Rate 80 Respiratory Rate 18 Blood Pressure 153/87 H Pulse Oximetry 98 100 97 01/16/21 15:20 Temperature 98.2 F Pulse Rate 80 Respiratory Rate 18 Blood Pressure 129/73 Pulse Oximetry 98 Oxygen Delivery Method Room Air Oxygen Flow Rate 0 Narrative Exam Narrative: General: Alert female in mild distress HEENT/neck: There is stye on the left paranasal lower eyelid. No conjunctival erythema or drainage. There is induration, swelling and erythema of left anterior neck under the jaw with erythema going across to the right and also to the nape of the neck. There is a small tender picked at ulcerated area on the posterior scalp with mild surrounding erythema. Extremities: There is a small picked at ulcerated erythematous lesion on the right upper inner thigh. Objective Labs Result Diagrams: 01/16/21 04:55 01/16/21 04:55 Labs: Laboratory Results - last 24 hr 01/15/21 01/15/21 01/15/21 19:45 19:45 19:45 WBC 23.4 H RBC 4.54 Hgb 13.2 Hct 39.5 MCV 87.0 MCH 29.2 MCHC 33.5 RDW 12.7 Plt Count 286 Neut % (Auto) 84.6 H Lymph % (Auto) 8.7 L [place] % (Auto) 5.9 Eos % (Auto) 0.5 L Baso % (Auto) 0.3 Neut # (Auto) 38168 H Lymph # (Auto) 2000 [place] # (Auto) 1400 H Eos # (Auto) 100 Baso # (Auto) 100 Sodium 133 L Potassium 4.1 Chloride 98 Carbon Dioxide 27 BUN 24 H Creatinine 1.12 H Estimated GFR 50.7 L BUN/Creatinine Ratio 21.4 Glucose 340 H Hemoglobin A1c Lactate 3.1 H Calcium 9.6 Magnesium Total Bilirubin 0.6 AST 24 ALT 19 Alkaline Phosphatase 111 Total Creatine Kinase 169 H CK-MB (CK-2) 1.37 CK-MB (CK-2) Rel Index 0.8 L Troponin I < 0.012 Total Protein 7.6 Albumin 4.3 Globulin 3.3 Albumin/Globulin Ratio 1.3 Procalcitonin 0.09 Urine Color Urine Appearance Urine pH Ur Specific [place] Urine Protein Urine Glucose (UA) Urine Ketones Urine Occult Blood Urine Nitrate Urine Bilirubin Urine Urobilinogen Ur Leukocyte Esterase Urine RBC Urine WBC Ur Squamous Epith Cells Urine Bacteria Ur Culture Indicated? Nasal Screen MRSA (PCR) SARS-CoV-2 (PCR) 01/15/21 01/15/21 01/15/21 19:45 19:45 21:45 WBC RBC Hgb Hct MCV MCH MCHC RDW Plt Count Neut % (Auto) Lymph % (Auto) [place] % (Auto) Eos % (Auto) Baso % (Auto) Neut # (Auto) Lymph # (Auto) [place] # (Auto) Eos # (Auto) Baso # (Auto) Sodium Potassium Chloride Carbon Dioxide BUN Creatinine Estimated GFR BUN/Creatinine Ratio Glucose Hemoglobin A1c 7.9 H Lactate Calcium Magnesium 1.7 Total Bilirubin AST ALT Alkaline Phosphatase Total Creatine Kinase CK-MB (CK-2) CK-MB (CK-2) Rel Index Troponin I Total Protein Albumin Globulin Albumin/Globulin Ratio Procalcitonin Urine Color Urine Appearance Urine pH Ur Specific [place] Urine Protein Urine Glucose (UA) Urine Ketones Urine Occult Blood Urine Nitrate Urine Bilirubin Urine Urobilinogen Ur Leukocyte Esterase Urine RBC Urine WBC Ur Squamous Epith Cells Urine Bacteria Ur Culture Indicated? Nasal Screen MRSA (PCR) SARS-CoV-2 (PCR) Negative 01/15/21 01/15/21 01/16/21 22:20 22:45 01:30 WBC RBC Hgb Hct MCV MCH MCHC RDW Plt Count Neut % (Auto) Lymph % (Auto) [place] % (Auto) Eos % (Auto) Baso % (Auto) Neut # (Auto) Lymph # (Auto) [place] # (Auto) Eos # (Auto) Baso # (Auto) Sodium Potassium Chloride Carbon Dioxide BUN Creatinine Estimated GFR BUN/Creatinine Ratio Glucose Hemoglobin A1c Lactate 1.6 Calcium Magnesium Total Bilirubin AST ALT Alkaline Phosphatase Total Creatine Kinase CK-MB (CK-2) CK-MB (CK-2) Rel Index Troponin I Total Protein Albumin Globulin Albumin/Globulin Ratio Procalcitonin Urine Color Yellow Urine Appearance Clear Urine pH 7.0 Ur Specific [place] <=1.005 Urine Protein Negative Urine Glucose (UA) 1+ H Urine Ketones Negative Urine Occult Blood Negative Urine Nitrate Negative Urine Bilirubin Negative Urine Urobilinogen 0.2 Ur Leukocyte Esterase Negative Urine RBC None seen Urine WBC 0-1/hpf Ur Squamous Epith Cells 1-5 /hpf Urine Bacteria None seen Ur Culture Indicated? Cult not indicated Nasal Screen MRSA (PCR) Positive for mrsa H SARS-CoV-2 (PCR) 01/16/21 01/16/21 04:55 04:55 WBC 18.4 H RBC 4.04 Hgb 11.7 L Hct 35.2 L MCV 87.1 MCH 29.0 MCHC 33.3 RDW 12.7 Plt Count 250 Neut % (Auto) 76.5 H Lymph % (Auto) 14.5 L [place] % (Auto) 6.8 Eos % (Auto) 1.4 L Baso % (Auto) 0.8 Neut # (Auto) 76447 H Lymph # (Auto) 2700 [place] # (Auto) 1300 H Eos # (Auto) 300 Baso # (Auto) 100 Sodium 134 L Potassium 4.3 Chloride 102 Carbon Dioxide 27 BUN 24 H Creatinine 1.06 H Estimated GFR 54.0 L BUN/Creatinine Ratio 22.6 H Glucose 225 H D Hemoglobin A1c Lactate Calcium 8.5 Magnesium Total Bilirubin 0.4 AST 19 ALT 14 Alkaline Phosphatase 101 Total Creatine Kinase CK-MB (CK-2) CK-MB (CK-2) Rel Index Troponin I Total Protein 6.5 Albumin 3.4 L Globulin 3.1 Albumin/Globulin Ratio 1.1 Procalcitonin Urine Color Urine Appearance Urine pH Ur Specific [place] Urine Protein Urine Glucose (UA) Urine Ketones Urine Occult Blood Urine Nitrate Urine Bilirubin Urine Urobilinogen Ur Leukocyte Esterase Urine RBC Urine WBC Ur Squamous Epith Cells Urine Bacteria Ur Culture Indicated? Nasal Screen MRSA (PCR) SARS-CoV-2 (PCR) [facility] Medical History Cervical spine arthritis with nerve pain COPD (chronic obstructive pulmonary disease) Depression HPV (human papilloma virus) anogenital infection Hyperlipidemia Hypertension Insulin dependent type 2 diabetes mellitus Multiple sclerosis Surgical History Status post decompression of compartment syndrome Family History Father Medical history unknown Mother Alzheimer's dementia Grandmother Alzheimer's dementia Brother Diabetes mellitus Brain tumor Social History household members: children Smoking Status: Current every day smoker alcohol intake: current Assessment & Plan Assessment & Plan narrative: This patient is a 55-year-old female who was a current daily smoker of amphetamines with a past medical history significant for multiple sclerosis manifested with cognitive impairment, hypertension, hyperlipidemia, COPD, insulin-dependent diabetes type 2, cervical arthritis with intermittent left arm paresthesias, anxiety and depression who presents to the ER for worsening symptoms of left neck cellulitis 1. Left neck cellulitis, with leukocytosis acute, present on admission -WBC 23.4, neutrophils 19,000, lactate 1.6, Na 133, procalcitonin 0.09, total creatinine kinase 169, troponin negative, sofa score:0, Anion gap:0 -suspect skin picking secondary to methamphetamine abuse. -patient's airway is patent and stable in no distress at this time -soft tissue neck CT demonstrated cellulitis without abscess -positive basal MRSA -LR at 100 cc/HR -change antibiotic to vancomycin -wound culture g stain 3+ GPC 2. Left eye stye with conjunctivitis, acute, present on admission -Erythromycin ointment q.i.d. x5 days to left eye -recommend warm moist compresses to left eye to encourage drainage 3. Methamphetamine abuse, acute on chronic, present on admission -patient education and encouragement of methamphetamine cessation ? 4. Type II Insulin-dependent diabetes uncontrolled with hyperglycemia, acute on chronic, present on admission ?-patient is frequently noncompliant with her insulins, also exacerbated by methamphetamine abuse -Initial BUN 24 creatinine 1.12, and GFR 50.7 both of these are improved from previous visit, glucose 340 -ordered fingerstick blood sugars a.c. and hs with low-dose correctional insulin. -will continue the patient's home regimen of Lantus 20 units daily and metformin. -held metformin times 48 hours post IV contrast -consistent carbohydrate diet 5. COPD, chronic, present on admission, stable -patient's airway is stable patent O2 saturation 98% on room air . -continue patient's home albuterol ? 6. Hyperlipidemia, chronic, stable, present on admission -continue patient's home regimen of atorvastatin 10 mg daily. 7. Hypertension, chronic, stable, present on admission -continue home regimen of lisinopril 10 mg daily. 8. Depression, chronic, stable, present on admission -patient denies suicidal ideation or thoughts self-harm stating she has 2 good counselors whom are helping her. -will continue bupropion XL 300 mg daily.? 9. GERD -famotidine 20 mg b.i.d. 10. Sciatica -gabapentin 300 mg a.m. and 600 mg p.m., patient was on this regimen in the past with improvement but stopped some months ago when ran out Time Spent With Patient Critical Care time: I spent a total of [] minutes of critical care time on this patient's care today; this time is exclusive of procedural time.
--- NOTE | 2021-01-16 17:18 | PC.NURSE ---
Addendum entered by Sherly Nj R.N. 01/16/21 20:15: new order for probiotic. tolerated OOB to shower. new dressing applied to R inner thigh blister. ice packs for LE's, warm blankets for upper extremities and neck. requested additional nicotine patch for HS. MD still on floor, order received to increase 7mg nicotine patch to 21mg QD.. Original Note: 1730: pt requesting probiotic. MD on floor, notified of patient's request.
[2021-01-16] MEDS: GABAPENTIN 600 MG TABLET PO (20:43)
[2021-01-16] MEDS: ACETAMINOPHEN 325 MG TABLET 650 MG PO (22:15)
[2021-01-16] MEDS: INSULIN GLARGINE 100 UNIT/ML 3ML PEN 20 UNIT SUBCUT (22:15)
[2021-01-17] VITALS (10 sets, daily range): BP systolic 140–152; BP diastolic 72–91; PULSE 74–82; RESP 17–22; TEMP 36.1–37; O2SAT 96–99
[2021-01-17 06:56] LABS: Add Manual Diff / Slide Review NO; Basophils Absolute Auto 100 /uL (0-100); Basophils Percent Auto 0.7 % (0-2); Eosinophils Absolute Auto 600 /uL (0-450); Eosinophils Percent Auto 4.4 % (2-4); Hematocrit 37.7 % (36-46); Hemoglobin 12.6 g/dL (12.0-16.0); Lymphocytes Absolute Auto 2300 /uL (1100-4500); Lymphocytes Percent Auto 15.5 % (25-40); Mean Corpuscular HGB Conc 33.5 % (30-36); Mean Corpuscular Hemoglobin 29.2 PG (26-34); Mean Corpuscular Volume 87.3 fL (80-100); Monocytes Absolute Auto 900 /uL (0-900); Monocytes Percent Auto 6.3 % (3-14); Neutrophils Absolute Auto 10600 /uL (1500-7000); Neutrophils Percent Auto 73.1 % (50-75); Platelet Count 235 X10^3/uL (150-400); Red Blood Cell Count 4.32 X10^6/uL (4.0-5.2); Red Cell Distribution Width 12.8 % (11.6-14.8); White Blood Cell Count 14.5 X10^3/uL (4.5-11.0)
[2021-01-17 07:02] LABS: Alanine Aminotransferase 14 IU/L (<35); Albumin 3.6 g/dL (3.5-5.0); Albumin Globulin Ratio 1.2 (1.0-2.8); Alkaline Phosphatase 96 U/L (38-126); Aspartate Aminotransferase 18 IU/L (14-36); Bilirubin Total 0.3 mg/dL (0.2-1.3); Blood Urea Nitrogen 23 mg/dL (7-17); Carbon Dioxide 25 mmol/L (22-32); Chloride 105 mmol/L (98-107); Estimated Glomerular Filt Rate > 60.0 mL/min (>60); Globulin 3.1 g/dL (1.7-4.1); Glucose 165 mg/dL (70-100); HEMOLYSIS < 15 (0-50); Potassium 4.8 mmol/L (3.4-5.1); Sodium 136 mmol/L (137-145); Total Protein 6.7 g/dL (6.3-8.2)
[2021-01-17] MEDS: INSULIN LISPRO 100 UNIT/ML 3ML VIAL SUBCUT ×2 (08:06→11:55)
[2021-01-17] MEDS: buPROPion XL 150 MG TAB 300 MG PO (08:07)
[2021-01-17] MEDS: LACTOBACILLUS ACIDOPHILUS TABLET 1 EACH PO (08:07)
[2021-01-17] MEDS: GABAPENTIN 300 MG CAPSULE PO (08:08)
[2021-01-17] MEDS: HEPARIN 5,000 UNIT/ML VIAL 5000 UNIT SUBCUT (08:08)
[2021-01-17] MEDS: FAMOTIDINE 20 MG TABLET PO (08:08)
[2021-01-17] MEDS: ERYTHROMYCIN OPHTH 1 GM OINT 1 APPLIC EYE-LEFT ×2 (08:08→11:56)
[2021-01-17] MEDS: INSULIN GLARGINE 100 UNIT/ML 3ML PEN 20 UNIT SUBCUT (08:09)
[2021-01-17] MEDS: NICOTINE 21 MG PATCH TOP (08:09)
[2021-01-17] MEDS: VANCOMYCIN TROUGH 1 REQUEST MISC (10:41)
[2021-01-17] MEDS: KETOROLAC 30 MG/ML VIAL IV (10:50)
[2021-01-17] MEDS: VANCOMYCIN 1,000 MG/200 ML PIGGYBACK 200 MG IV (10:50)
[2021-01-17 11:46] LABS: Vancomycin Trough 8.7 ug/mL (10-20)
[2021-01-17] MEDS: ACETAMINOPHEN 325 MG TABLET 650 MG PO (11:55)
--- NOTE | 2021-01-17 12:43 | P.DS_ITS ---
History of Present Illness History of Present Illness Chief complaint: LEFT LEG PAIN LEFT EYE PAIN AND NECK Narrative: Patient is a 55-year-old female Shyela Jolley with a history of methamphetamine use, chronic back pain, insulin dependent type II DM, COPD who presented today to the ED with a compliant of left sided neck swelling and additional multiple complaints. Discharge Providers Provider Date of admission: 01/15/21 23:59 Discharge Date: 01/17/21 Primary care physician: Mami oMrin, BACK UP MACHINE OPERATOR-C Discharge provider: Kristian Shah MD Summary Hospital Course Hospital Course: 1. Cellulitis of neck soft tissues without abscess 2. Left eye stye with conjunctivitis 3. Type 2 insulin-dependent diabetes 4. Methamphetamine abuse 5. Sciatica Patient was admitted for treatment of cellulitis and started on vancomycin. A wound culture of 1 of the picked at scabs is growing heavy Staph aureus. She had positive nasal MRSA. With antibiotic she had very good improvement in soft tissue swelling and erythema. CT did not demonstrate abscess. Her WBC has improved substantially. She has tendency to pick at her skin leading to skin infections. She is being discharged on oral clindamycin. She is also given Rx for hydroxyzine to help with anxiety and itching as well as gabapentin for sciatica pain. Her diabetes control is fair with a A1c of 7.9%. On exam, there is marked improvement in erythema and soft tissue swelling of the neck. There is a tender swollen area on the posterior scalp which is scabbed over with some mild surrounding erythema. Status at Discharge Cognitive/behavioral status at discharge: oriented Functional status at discharge: independent ambulation Overall status at discharge: patient is progressing back to baseline Time Spent with Patient Time spent: Greater than 30 minutes Exam Vital Signs (past 8 hours): - 01/17/21 05:00 01/17/21 06:45 01/17/21 08:10 Temperature 98.6 F 97.0 F L Pulse Rate 82 76 Respiratory Rate 18 17 Blood Pressure 140/72 147/82 H Pulse Oximetry 99 98 98 01/17/21 08:35 01/17/21 09:00 01/17/21 12:00 Temperature 98.3 F Pulse Rate 74 Respiratory Rate 18 Blood Pressure 144/91 H Pulse Oximetry 98 98 98 Oxygen Delivery Method Room Air Oxygen Flow Rate 0 Objective Labs Result Diagrams: 01/17/21 06:35 01/17/21 06:20 Labs: Laboratory Results - last 24 hr 01/17/21 01/17/21 01/17/21 06:20 06:35 10:40 WBC 14.5 H RBC 4.32 Hgb 12.6 Hct 37.7 MCV 87.3 MCH 29.2 MCHC 33.5 RDW 12.8 Plt Count 235 Neut % (Auto) 73.1 Lymph % (Auto) 15.5 L [place] % (Auto) 6.3 Eos % (Auto) 4.4 H Baso % (Auto) 0.7 Neut # (Auto) 86005 H Lymph # (Auto) 2300 [place] # (Auto) 900 Eos # (Auto) 600 H Baso # (Auto) 100 Sodium 136 L Potassium 4.8 Chloride 105 Carbon Dioxide 25 BUN 23 H Creatinine 0.96 Estimated GFR > 60.0 BUN/Creatinine Ratio 24.0 H Glucose 165 H Calcium 9.0 Total Bilirubin 0.3 AST 18 ALT 14 Alkaline Phosphatase 96 Total Protein 6.7 Albumin 3.6 Globulin 3.1 Albumin/Globulin Ratio 1.2 Vancomycin Trough 8.7 L PFSH Medical History Cervical spine arthritis with nerve pain COPD (chronic obstructive pulmonary disease) Depression HPV (human papilloma virus) anogenital infection Hyperlipidemia Hypertension Insulin dependent type 2 diabetes mellitus Multiple sclerosis Surgical History Status post decompression of compartment syndrome Family History Father Medical history unknown Mother Alzheimer's dementia Grandmother Alzheimer's dementia Brother Diabetes mellitus Brain tumor Social History household members: children Smoking Status: Current every day smoker alcohol intake: current Discharge Plan Discharge Plan Patient Disposition: Home Discharge orders & Medications Prescriptions: New famotidine [Pepcid AC] 20 mg Tablet 20 mg PO BID Qty: 60 RF: 0 gabapentin [Neurontin] 300 mg Capsule See Rx Instructions .ROUTE .COMPLEX Qty: 90 RF: 0 clindamycin HCl 300 mg capsule 300 mg PO QID Qty: 21 RF: 0 hydroxyzine pamoate [Vistaril] 50 mg capsule 50 mg PO QID PRN (Reason: itching or anxiety) Qty: 60 RF: 0 Continued bupropion HCl [Wellbutrin XL] 300 mg tablet extended release 24 hr 300 mg PO DAILY RF: 0 Lantus Solostar U-100 Insulin 100 unit/mL (3 mL) insulin pen 20 unit SUBCUT DAILY Qty: 0 RF: 0 albuterol sulfate [ProAir HFA] 90 mcg/actuation HFA aerosol inhaler 1 puff INHALATION PRN PRN (Reason: SOB) Qty: 8 RF: 0 fluticasone propionate [Allergy Relief (fluticasone)] 50 mcg/actuation spray,suspension 50 mcg NASAL 1-2XD Qty: 16 RF: 0 metformin 500 mg tablet 500 mg PO BID Qty: 120 RF: 0 Follow up/Referrals: Mami Morin FNP-C [Primary Care Provider] - Diet/Activity/Treatments Diet: Diet as Tolerated Discharge Data Primary Care Provider: Mami Morin Attending Provider: Moraima Jessica
--- NOTE | 2021-01-17 14:22 | CM.DANOTE ---
DCP/Assessment: Reviewed chart. Patient is a 55yr old female admitted to [facility] with neck cellulitis. PCP listed is Jyotsna Morin. Primary payor is 1)[facility] 2)Medicaid. Met with patient on 01-16 explained CM/SW role. Patient resting at time of visit but easily awakened. Patient reports that she lives with family [place] Current plan is for patient to return home on po abx when medically stable. Patient reports that she currently uses methamphetamine on occasion. Patient does not believe that her use has been a problem. Patient indicates that she has long h/o depression in which she currently takes welbutrin which she feels works well. Patient reports that she is currently I with all ADL's. At this time it is anticipated that patient will d/c home within the next 24-48hrs. Patient denies any d/c planning needs. CM team will continue to follow. P: Home when stable. CM team following closely for d/c planning needs. KJS Discharge Planning/Care Management Advanced directive, confirm from FAMILY Start: 01/16/21 04:31 Freq: Q24H Status: Active Protocol: Document 01/16/21 09:42 YAD (Rec: 01/16/21 09:42 YAD [id number]) Advance Directive, confirm on record Time 09:42 Person contacted Patient Copy received No CM Discharge Assessment Start: 01/17/21 14:18 Freq: Status: Active Protocol: Document 01/17/21 14:19 KJS (Rec: 01/17/21 14:21 KJS [id number]) Discharge Planning Assessment Assigned Field Tech LUCY Biswas Contact Information Mami Barr (daughter) # [phone] Advance Directives? No Advance Directives on File No History Provided By Patient,Medical Record Prior Living Arrangements Apartment/Condo Household Members children Independent with ADL's Yes Is patient alert and oriented? Yes Caregiver for Another No Barriers to Discharge No Discharge Plan Home Transportation Arrangement Family to provide transport. Whiteboard Updated in Patient Room with Yes name and ext. # of Field Tech Review Status In Process Next Review Type Continued Stay Review
--- NOTE | 2021-01-17 15:39 | CM.DANOTE ---
d/c paperwork reviewed w/ patient, including prescriptions and med list, f/u appts, instructions of when to return to ED (fever, pain, returning sx) patient states she understands. signed and dated. awaiting arrival of her niece.
== END 2021-01-17 15:56 | disposition home or self-care (01) ==
LOC: ED 19:50 → AC 01-16 00:01
PROVIDERS: Admitting Provider Nurse Practitioner Family; Emergency Provider Emergency Medicine; PCP Nurse Practitioner Family; Referring Provider Emergency Medicine; Visit Provider Nurse Practitioner Family
DX: L03.221 Cellulitis of neck (principal); H10.9 Unspecified conjunctivitis; H00.015 Hordeolum externum left lower eyelid; F15.10 Other stimulant abuse, uncomplicated; J44.9 Chronic obstructive pulmonary disease, unspecified; E78.5 Hyperlipidemia, unspecified; I10 Essential (primary) hypertension; F32.9 Major depressive disorder, single episode, unspecified; F17.210 Nicotine dependence, cigarettes, uncomplicated; E11.65 Type 2 diabetes mellitus with hyperglycemia; K21.9 Gastro-esophageal reflux disease without esophagitis; B95.62 Methicillin resistant Staphylococcus aureus infection as the cause of diseases classified elsewhere; M54.30 Sciatica, unspecified side; Z79.4 Long term (current) use of insulin; Z20.822 Contact with and (suspected) exposure to COVID-19
CPT/HCPCS: 36415; 70491; 71045; 80053; 80202; 81001; 81003; 82550; 82553; 82962; 83036; 83605; 83735; 84145; 84484; 85025; 87040; 87070; 87077; 87147; 87186; 87205; 87635; 87797; 93005; 93010; 94760; 96361; 96365; 96366; 96367; 96375; 99284; C9803; G0378; A9270; J0696; J1644; J1815; J1885; J2185; Q9967

== ENCOUNTER 2021-12-04 15:30 | Outpatient (RCR) | payer OTHER, MEDICAID, SELFPAY ==
[2021-01-16 09:56] VITALS: BMI 29.0
--- NOTE | 2021-10-24 16:05 | ST.OP.ACL ---
Visit Care Team Role Provider Type ANNEL Rehman Primary Care Provider Non-Staff Specialty: Nursing Address: [address] [place] [address], [place], [address] Email: LEONARDO Gerardo Family Provider Non-Staff Specialty: Family Practice Address: [address] [place] [address], [id number] Email: Rona Rocha MD Attending Provider Non-Staff Referring Provider Specialty: Neurology Address: [address] [place] [address], [id number] Email: Adult Cognitive Linguistic Evaluation EGG FACTORY WORKER Adult Cognitive Linguistic Eval Start: 10/23/21 14:45 Freq: Status: Active Protocol: Document 10/23/21 14:45 EK (Rec: 10/23/21 14:47 EK [id number]) Adult Cognitive Linguistic Evaluation Session Time Visit Start Time 15:45 Visit Stop Time 16:30 Total Visit Minutes 45 Visit Information Visit Number 05/15 Plan of Care Dates 10/24/2021-01/19/2022 Insurance Information [facility] [employer] Options Referral Referring Provider Rona Rocha MD Reason for Referral Memory loss Setting Assessment Location Outpatient Care Visit Type Note Type Initial evaluation Next Note Type Next Note Type Treatment Note Patient Information Identification Type Name,ID Card Patient History Pt is a 55-year-old female who lives currently lives at [facility] with several other residents. [facility] is described a ? women?s transitional house?. Pt was diagnosed with MS in 2004 and has been non- progressive until a 2018 scan which the pt reported showed the MS was ?attacking my brain ?. Pt reports that she is hard of hearing and has visual impairment. Per doctor referral, the pt?s history is also significant for substance abuse and as a result, the pt has little recollection of several years of her life. Pt complains of cognitive and memory changes. Examples provided include frequently forgetting and losing items, forgetting appointments, word finding difficulties, turning burners up instead of down then burning food, and difficulty with various sequencing tasks. Pt reported that she has external memory aids ?all over the house? but finds them unhelpful. 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 Uses reading glasses Subjective Patient Report Pt was unaccompanied and arrived 15 minutes late to appointment, having difficulty finding clinic entrance. Pt spoke at a moderately fast speed and reported that this is due to anxiety. Pt reported that her cognitive challenges are affecting her ability to complete ADL as well as family obligations. Assessment conducted and note written by student EGG FACTORY WORKER Cookie Long under EGG FACTORY WORKER supervision. Formal Assessment Standardized Test/Screener Type [facility] Mental Status ([facility]) Administration Complete Results Score of 29/30 (within normal range). Pt's only error was when she was instructed to give a series of numbers backwards, target response was 7,358 and pt instead said 7,348. Findings/Results Findings Both pt and doctor report cognitive impairment. Further assessment is needed to assess skills and develop plan of care. Expressive and receptive language were WNL for egocentric conversation. Needs further assessment. Cognitive Communication Deficits Self-awareness of Cognitive- Predictive awareness (able to Communication Deficits predict problem; impact of impairments) Concomitant Factors Concomitant Factors Hearing loss,Other (comment) Comment vision impairment, MS, and previous substance abuse Impact on Functioning Activity Limits/Particip.Rest. Mild: Interpersonal Interactions Mod: General Tasks and Demands Household Tasks Prognosis Prognosis Fair Based on Cognitive status,Comorbidities ,Duration of symptoms/severity ,Time since onset Plan of Care Speech-Language Treatment Yes Frequency 1x a week Duration 3 months Patient/Caregiver Education Described results of evaluation,Patient expressed understanding of evaluation, Patient expressed agreement with goals and treatment plans ,Patient requires further education/training Short Term Goals 1. Pt will participate in further assessment to guide POC. 2. Pt will collaborate with EGG FACTORY WORKER to design and implement external memory tools in order to complete ADLs. *ADDITIONAL GOALS MAY BE ADDED PENDING FURTHER ASSESSMENT RESULTS Shelter Goals 1. Pt will improve cognitive skills to be WFL in order to meet the demands of her personal life (as measured by pt report and clinician judgment). 2. Pt will independently implement strategies to complete demands of personal life (e.g. family demands, appointments, etc). *ADDITIONAL GOALS MAY BE ADDED PENDING FURTHER ASSESSMENT RESULTS
--- NOTE | 2021-11-13 15:10 | ST.OPTN ---
Visit Care Team Role Provider Type ANNEL Rehman Primary Care Provider Non-Staff Address: [address] [place] [address], [place], [address] KING GerardoC Family Provider Non-Staff Address: [address] [place], [address] Rona Rocha MD Attending Provider Non-Staff Referring Provider Address: [address] [place] [address], [address] CASH OFFICE WORKER Treatment Note CASH OFFICE WORKER Clinical Instructor Line Start: 10/23/21 17:47 Freq: Status: Active Protocol: Document 10/23/21 15:57 GIUSEPPE (Rec: 10/24/21 15:57 [email or web address] [id number]) Clinical Instructor Signature Clinical Instructor Clinical Instructor Yes CASH OFFICE WORKER Treatment Note Start: 10/23/21 17:47 Freq: Status: Active Protocol: Document 11/13/21 14:44 EK (Rec: 11/13/21 14:59 EK [id number]) Speech Pathology Treatment Note Session Time Visit Start Time 12:30 Visit Stop Time 13:25 Total Visit Minutes 55 Visit Information Visit Number 3 Plan of Care Dates 10/24/2021-01/19/2022 Insurance Information [facility] Healthy Options Setting Treatment Setting Outpatient Care Visit Type Note Type Treatment Note Next Note Type Next Note Type Treatment Note General Information Patient History Pt is a 55-year-old female who currently lives in her car as she awaits new housing. Pt was diagnosed with MS in 2004 and has been non-progressive until a 2018 scan which the pt reported showed the MS was ? attacking my brain?. Pt reports that she is hard of hearing and has visual impairment. Per doctor referral, the pt?s history is also significant for substance abuse and as a result, the pt has little recollection of several years of her life. Pt complains of cognitive and memory changes. Examples provided include frequently forgetting and losing items, forgetting appointments, word finding difficulties, turning burners up instead of down then burning food, and difficulty with various sequencing tasks. Pt reported that she has external memory aids ?all over the house? but finds them unhelpful. Subjective Identification Type Name Others Present Additional Therapist Observations/Patient Presentation Pt arrived on time and unaccompanied. Pt reported that she has several upcoming appointments that she is feeling nervous about as she gets overwhelmed with information presented at doctor visits. Session conducted and note written by CASH OFFICE WORKER internet systems administrator Cookie Long under CASH OFFICE WORKER supervision Chief Complaint(s) Language,Cognitive Patient Knowledge/Awareness of CASH OFFICE WORKER Role Good in Treatment Parent/Caretake Knowledge/Awareness of Good CASH OFFICE WORKER Role in Treatment Patient/Caregiver Compliance with Home Good Exercise Program Objective Short Term Goals 1. Pt will participate in further assessment to guide POC. 2. Pt will collaborate with CASH OFFICE WORKER to design and implement external memory tools in order to complete ADLs. Front Desk Monitor Goals 1. Pt will improve cognitive skills to be WFL in order to meet the demands of her personal life (as measured by pt report and clinician judgment). 2. Pt will independently implement strategies to complete demands of personal life (e.g. family demands, appointments, etc). Treatment Activities Pt reported that since leaving the [facility], her main external memory tool is her phone which she uses to set reminders throughout the day. Overall, the pt accomplishes necessary tasks by utilizing this tool but stated that she is constantly re-checking her phone and needing multiple alarms in order to complete a single task. Pt also reported feeling overwhelmed at doctor appointments and often forgetting questions or forgetting what is discussed at the visit. Collaborated with pt to create a template to organize her questions prior to appointments as well as give doctors a space to write down pertinent information. Also provided education RE [employer] feature on the pt's phone in order to create and organize lists/checklists as needed (e. g. keeping a list of ongoing symptoms, grocery list, etc.). Pt stated that she is interested in developing a memory notebook and will bring in a 3-ring binder for next session. Assessment Impairments Identified Cognitive communication Assessment of Improvement Pt demonstrated good awareness of deficits by identifying what specific aspects of doctor appointments are overwhelming so CASH OFFICE WORKER and CASH OFFICE WORKER internet systems administrator could collaborate in creation of an external tool. Pt was receptive to instructions for utilizing [employer]ed santa and showed eagerness to improve by asking for additional tasks to add to HEP. Reviewed with Patient Goals,Progress Being Made,Home Exercise Program Patient/Caregiver Understanding Good Plan Amount of Therapy Recommended 3 Months Frequency of Treatment Once a Week Length of Session 45 Minutes Treatment Emphasis Next Session External Memory Aid and HEP Options Therapeutic Contents Client Education,Cognitive- Linguistic Training,Receptive Language Training Provided Patient/Caregiver Instruction Home Exercise Program,Plan of Care,Questions/Concerns Therapy Recommendations Continue with Current Program
--- NOTE | 2021-11-21 11:37 | ST.OPTN ---
Visit Care Team Role Provider Type ANNEL Rehman Primary Care Provider Non-Staff Address: [address] [place] [address], [place], [address] KING GerardoC Family Provider Non-Staff Address: [address] [place], [address] Rona Rocha MD Attending Provider Non-Staff Referring Provider Address: [address] [place] [address], [address] REGISTERED NURSE SURGICAL SERVICES Treatment Note REGISTERED NURSE SURGICAL SERVICES Clinical Instructor Line Start: 10/23/21 17:47 Freq: Status: Active Protocol: Document 11/20/21 11:27 GIUSEPPE (Rec: 11/21/21 11:27 [email or web address] [id number]) Clinical Instructor Signature Clinical Instructor Clinical Instructor Yes REGISTERED NURSE SURGICAL SERVICES Treatment Note Start: 10/23/21 17:47 Freq: Status: Active Protocol: Document 11/20/21 17:12 EK (Rec: 11/21/21 09:34 EK [id number]) Speech Pathology Treatment Note Session Time Visit Start Time 15:30 Visit Stop Time 16:15 Total Visit Minutes 45 Visit Information Visit Number 4/ Plan of Care Dates 10/24/2021-01/19/2022 Insurance Information [facility] Healthy Options Setting Treatment Setting Outpatient Care Visit Type Note Type Treatment Note Next Note Type Next Note Type Treatment Note General Information Patient History Pt is a 55-year-old female who currently lives in her car as she awaits new housing. Pt was diagnosed with MS in 2004 and has been non-progressive until a 2018 scan which the pt reported showed the MS was ? attacking my brain?. Pt reports that she is hard of hearing and has visual impairment. Per doctor referral, the pt?s history is also significant for substance abuse and as a result, the pt has little recollection of several years of her life. Pt complains of cognitive and memory changes. Examples provided include frequently forgetting and losing items, forgetting appointments, word finding difficulties, turning burners up instead of down then burning food, and difficulty with various sequencing tasks. Pt reported that she has external memory aids ?all over the house? but finds them unhelpful. Subjective Identification Type Name Others Present Additional Therapist Observations/Patient Presentation Pt arrived on time and unaccompanied. Pt reported she is nervous and planning around an upcoming surgery. Otherwise, no new complaints. Session conducted and note written by REGISTERED NURSE SURGICAL SERVICES internal communications writer Cookie Long under REGISTERED NURSE SURGICAL SERVICES supervision Chief Complaint(s) Language,Cognitive Patient Knowledge/Awareness of REGISTERED NURSE SURGICAL SERVICES Role Good in Treatment Parent/Caretake Knowledge/Awareness of Good REGISTERED NURSE SURGICAL SERVICES Role in Treatment Patient/Caregiver Compliance with Home Good Exercise Program Objective Short Term Goals 1. Pt will participate in further assessment to guide POC. 2. Pt will collaborate with REGISTERED NURSE SURGICAL SERVICES to design and implement external memory tools in order to complete ADLs. Playback Operator Goals 1. Pt will improve cognitive skills to be WFL in order to meet the demands of her personal life (as measured by pt report and clinician judgment). 2. Pt will independently implement strategies to complete demands of personal life (e.g. family demands, appointments, etc). Treatment Activities Pt reported that she continues to misplace her keys on a regular basis. Provided skilled education RE the say it out loud memory strategy in order to increase her awareness and memory. Collaborated with pt in order to pre-determine a designated place for her keys when she is inside and outside of the car . Provided skilled feedback on how to improve her current organization system. Pt was responsive to feedback. Pt also reported that her rate of speech has caused her to misspeak and that sometimes people have difficulty understanding her. Provided skilled education RE how anxiety can affect breathing/ speech rate as well as WFD. Also provided education RE the benefits of diaphragmatic breathing. Instructed the pt to utilize the tapping method to slow her rate of speech and increase her overall awareness of what she is saying to her communication partner. When the tapping method was utilized, the pt's intelligibility did improve. Provided pt with a handout to give to her family members RE communication with someone who is WIYOT. Assessment Rehab Potential Good Impairments Identified Cognitive communication Progress Towards Goals Slow Progress Assessment of Improvement Pt demonstrated good motivation for improvement by following REGISTERED NURSE SURGICAL SERVICES's recommendation from last week to bring in a 3-ring binder. Pt also demonstrated good follow-through by utilizing the template created during last session to organize her questions for upcoming doctor appointments. Suspect if pt can continue to improve her organization, her attention and memory will also improve. When pt utilized the tapping method, her rate of speech and intelligibility greatly improved. Reviewed with Patient Goals,Progress Being Made,Home Exercise Program Patient/Caregiver Understanding Good Plan Amount of Therapy Recommended 3 Months Frequency of Treatment Once a Week Length of Session 45 Minutes Treatment Emphasis Next Session External Memory Aid and HEP Options Therapeutic Contents Client Education,Cognitive- Linguistic Training,Receptive Language Training Provided Patient/Caregiver Instruction Home Exercise Program,Plan of Care,Questions/Concerns Therapy Recommendations Continue with Current Program
--- NOTE | 2021-11-27 16:45 | ST.OPTN ---
Visit Care Team Role Provider Type ANNEL Rehman Primary Care Provider Non-Staff Address: [address] [place] [address], [place], [address] KING GerardoC Family Provider Non-Staff Address: [address] [place] [address], [address] Rona Rocha MD Attending Provider Non-Staff Referring Provider Address: [address] [place] [address], [address] MERRY GO ROUND OPERATOR Treatment Note MERRY GO ROUND OPERATOR Clinical Instructor Line Start: 10/23/21 17:47 Freq: Status: Active Protocol: Document 11/20/21 11:27 GIUSEPPE (Rec: 11/21/21 11:27 [email or web address] [id number]) Clinical Instructor Signature Clinical Instructor Clinical Instructor Yes MERRY GO ROUND OPERATOR Treatment Note Start: 10/23/21 17:47 Freq: Status: Active Protocol: Document 11/27/21 16:32 GIUSEPPE (Rec: 11/27/21 16:45 [email or web address] [id number]) Speech Pathology Treatment Note Session Time Visit Start Time 15:30 Visit Stop Time 16:30 Total Visit Minutes 60 Visit Information Visit Number 5 Plan of Care Dates 10/24/2021-01/19/2022 Insurance Information [facility] Healthy Options Setting Treatment Setting Outpatient Care Visit Type Note Type Treatment Note Next Note Type Next Note Type Treatment Note General Information Patient History Pt is a 55-year-old female who currently lives in her car as she awaits new housing. Pt was diagnosed with MS in 2004 and has been non-progressive until a 2018 scan which the pt reported showed the MS was ? attacking my brain?. Pt reports that she is hard of hearing and has visual impairment. Per doctor referral, the pt?s history is also significant for substance abuse and as a result, the pt has little recollection of several years of her life. Pt complains of cognitive and memory changes. Examples provided include frequently forgetting and losing items, forgetting appointments, word finding difficulties, turning burners up instead of down then burning food, and difficulty with various sequencing tasks. Pt reported that she has external memory aids ?all over the house? but finds them unhelpful. Subjective Identification Type Name Observations/Patient Presentation Pt arrived on time. No new complaints. She was seen by her neurologist last week and brought brain and cervical spine MRI results with her. Brain MRI showed no change since last MRI (2018). Cervical spine MRI showed worsening disc degeneration. The pt reported consistent placement of keys in designated places, as discussed at last session, with no episodes of losing them. She also reported using tapping strategy to slow her speech. Chief Complaint(s) Language,Cognitive Patient Knowledge/Awareness of MERRY GO ROUND OPERATOR Role Good in Treatment Parent/Caretake Knowledge/Awareness of Good MERRY GO ROUND OPERATOR Role in Treatment Patient/Caregiver Compliance with Home Good Exercise Program Objective Short Term Goals 1. Pt will participate in further assessment to guide POC. 2. Pt will collaborate with MERRY GO ROUND OPERATOR to design and implement external memory tools in order to complete ADLs. History Card Clerk Goals 1. Pt will improve cognitive skills to be WFL in order to meet the demands of her personal life (as measured by pt report and clinician judgement). 2. Pt will independently implement strategies to complete demands of personal life (e.g. family demands, appointments, etc). Treatment Activities Consulted with pt RE tracking of keys. She reported good results. Recommended following a place for everything and everything in its place and one and done guidelines to increase organization for improved memory and tracking and to minimize unnecessary clutter. Pt was agreeable. Initiated training in smart phone usage to manage email and sign up with [facility] [employer] account. The pt followed demonstration and oral instructions to successfully delete multiple unwanted email messages from phone. She read written [employer] instructions and initiated setup task with min verbal prompts. The task was unable to be completed d/t lack of 2-step verification response from the website, which indicated there may be a delay. Pt was provided a phone number for tech support, should she have difficulty completing the task independently. Discussed POC. The pt has a surgery coming up. Will meet again next week and further discuss if/when additional Speech Therapy services are recommended. Assessment Rehab Potential Good Impairments Identified Cognitive communication Progress Towards Goals Slow Progress Assessment of Improvement The pt followed oral and written instructions and demonstrations with minimal need for repetition or additional support to complete tasks on her smart phone. Suspect if pt is able to ask questions and access instructions on the Internet ( e.g., [employer], [facility], etc.) she would be able to follow instructions, which would allow for transference of skills to multiple situations. This would also increase her independence vs dependence on friends/family to show her how to do tasks. Will f/u at next session. She continues to demonstrate good carryover of therapy targets and strategies in her functional environment. Reviewed with Patient Goals,Progress Being Made,Home Exercise Program Patient/Caregiver Understanding Good Plan Amount of Therapy Recommended 3 Months Frequency of Treatment Once a Week Length of Session 45 Minutes Treatment Emphasis Next Session External Memory Aid and HEP Options Therapeutic Contents Client Education,Cognitive- Linguistic Training,Receptive Language Training Provided Patient/Caregiver Instruction Home Exercise Program,Plan of Care,Questions/Concerns Therapy Recommendations Continue with Current Program
--- NOTE | 2021-12-04 17:43 | ST.OPDS ---
Visit Care Team Role Provider Type ANNEL Rehman Primary Care Provider Non-Staff Address: [address] [place] [address], [place], [address] KING GerardoC Family Provider Non-Staff Address: [address] [place], [address] Rona Rocha MD Attending Provider Non-Staff Referring Provider Address: [address] [place] [address], [address] REINFORCING METAL WORKER Treatment Note REINFORCING METAL WORKER Clinical Instructor Line Start: 10/23/21 17:47 Freq: Status: Active Protocol: Document 11/20/21 11:27 GIUSEPPE (Rec: 11/21/21 11:27 [email or web address] [id number]) Clinical Instructor Signature Clinical Instructor Clinical Instructor Yes REINFORCING METAL WORKER Treatment Note Start: 10/23/21 17:47 Freq: Status: Active Protocol: Document 12/04/21 16:43 GIUSEPPE (Rec: 12/04/21 16:44 [email or web address] [id number]) Speech Pathology Treatment Note Session Time Visit Start Time 15:30 Visit Stop Time 16:25 Total Visit Minutes 55 Visit Information Visit Number 6 Plan of Care Dates 10/24/2021-01/19/2022 Insurance Information [facility] Healthy Options Setting Treatment Setting Outpatient Care Visit Type Note Type Discharge Summary General Information Patient History Pt is a 55-year-old female who currently lives in her car as she awaits new housing. Pt was diagnosed with MS in 2004 and has been non-progressive until a 2018 scan which the pt reported showed the MS was ? attacking my brain?. Pt reports that she is hard of hearing and has visual impairment. Per doctor referral, the pt?s history is also significant for substance abuse and as a result, the pt has little recollection of several years of her life. Pt complains of cognitive and memory changes. Examples provided include frequently forgetting and losing items, forgetting appointments, word finding difficulties, turning burners up instead of down then burning food, and difficulty with various sequencing tasks. Pt reported that she has external memory aids ?all over the house? but finds them unhelpful. Subjective Identification Type Name Observations/Patient Presentation Pt arrived on time. No new complaints. Pt requested recommendations for cognitive santa exercises. Pt also asked that this Discharge Summary be sent to both Dr. Rona Rocha and to Dr. Diana Rodriguez. Chief Complaint(s) Language,Cognitive Patient Knowledge/Awareness of REINFORCING METAL WORKER Role Good in Treatment Parent/Caretake Knowledge/Awareness of Good REINFORCING METAL WORKER Role in Treatment Patient/Caregiver Compliance with Home Good Exercise Program Objective Short Term Goals 1. Pt will participate in further assessment to guide POC. GOAL MET 2. Pt will collaborate with REINFORCING METAL WORKER to design and implement external memory tools in order to complete ADLs. GOAL MET Field Representative Goals 1. Pt will improve cognitive skills to be WFL in order to meet the demands of her personal life (as measured by pt report and clinician judgement). GOOD PROGRESS; GOAL MET FOR CURRENT LIMITED LIVING ENVIRONMENT, NOT MET FOR INDEPENDENT HOME LIVING. 2. Pt will independently implement strategies to complete demands of personal life (e.g. family demands, appointments, etc). GOAL MET Treatment Activities Educated and trained pt on recommended cognitive training apps and deductive reasoning games for HEP. The pt completed 6- to 8-item visual memory recall task with 81% acc. and auditory recall task with 92% acc. She verbalized understanding of all information and training provided and stated intention to obtain one or more of the apps. All questions were answered. Discussed POC and pt requested d/c from services at this time in order to reserve insurance benefits should she require them after an upcoming surgery. REINFORCING METAL WORKER in agreement. Assessment Patient Response to Treatment Good Rehab Potential Good Impairments Identified Cognitive communication Progress Towards Goals Good Progress Assessment of Overall Progress Improving Assessment of Improvement Over the course of treatment, the pt has demonstrated improvement in ability to organize and track personal items, ability to use word recall and speech intelligibility strategies, and has been compliant with HEP and demonstrated good carryover of treatment targets . She continues with mild WFDs , occ reduced speech intelligibility d/t rapid rate of speech, and mildly decreased working and short- term memory. The latter is difficult to fully assess at this time because the pt is living from her car, which has significantly fewer demands than living in a home. Anticipate greater challenges will be seen when the pt resumes home living. Reviewed with Patient Goals,Progress Being Made,Home Exercise Program Patient/Caregiver Understanding Good Plan Treatment Emphasis Next Session External Memory Aid and HEP Options Therapeutic Contents Client Education,Cognitive- Linguistic Training,Receptive Language Training Provided Patient/Caregiver Instruction Home Exercise Program,Plan of Care,Questions/Concerns Therapy Recommendations Continue with Current Program, Discharge from Speech Therapy Reason for Discharge [place] remaining insurance benefits
== END 2021-12-08 10:57 ==
LOC: SP 15:30
PROVIDERS: Family Provider Nurse Practitioner Family; PCP Nurse Practitioner Family; Referring Provider Psychiatry & Neurology Neurology; Visit Provider Psychiatry & Neurology Neurology
DX: R41.3 Other amnesia (principal)
CPT/HCPCS: 92507; 92523; 97129; 97130

== ENCOUNTER 2023-07-11 13:19 | Day surgery (SDC) | payer OTHER, MEDICAID, SELFPAY ==
[2023-04-18 14:40] VITALS: BMI 29.0
--- NOTE | 2023-07-11 | PATH_ITS ---
[facility] Accession Number: [id number] No. of containers..04 Tissue . 01 Material submitted: . PART A: duodenum - DUODENUM PART B: stomach - ANTRUM PART C: stomach - FUNDUS BIOPSY PART D: esophagus - DISTAL ESOPHAGUS BIOPSY . 01 Diagnosis: Part A: DUODENUM: Duodenal mucosa with mild reactive changes suggestive of peptic duodenitis. No evidence of celiac disease. . Part B: ANTRUM: Gastric mucosa with mild chronic inflammation. No Helicobacter organisms identified. No intestinal metaplasia, dysplasia, or malignancy identified. . Part C: FUNDUS BIOPSY: Gastric oxyntic mucosa with no diagnostic alterations. No Helicobacter organisms identified. No intestinal metaplasia, dysplasia, or malignancy identified. . Part D: DISTAL ESOPHAGUS BIOPSY: Squamocolumnar junctional mucosa with changes suggestive of reflux. No goblet cell metaplasia or dysplasia identified. [facility] 07/17/2023 1359 Local . 01 Comment: Part B: An immunohistochemical stain was performed to evaluate for Helicobacter organisms and is negative. The control stains appropriately. * This test was developed and its performance characteristics determined by [employer]. It has not been cleared or approved by the U.S. Food and Drug Administration. The FDA has determined that such clearance or approval is not necessary. This test is used for clinical purposes. It should not be regarded as investigational or for research. . Part D: An ABPAS stain was performed to evaluate for goblet cell metaplasia, and is negative. The control stains appropriately. . 01 Electronically signed: . Michael Echols MD, Pathologist NPI- [id number] . 01 Gross description: . A. Received in formalin labeled with the patient's name, , and duodenum biopsy, and consists of four mccabe soft tissue fragments ranging from 0.2 to 0.3 cm in greatest dimension. Submitted entirely in cassette A1. B. Received in formalin labeled with the patient's name, , and antrum biopsy, and consists of two mccabe soft tissue fragments ranging from 0.4 to 0.5 cm in greatest dimension. Submitted entirely in cassette B1. C. Received in formalin labeled with the patient's name, , and fundus biopsy, and consists of two mccabe soft tissue fragments ranging from 0.1 to 0.2 cm in greatest dimension. Submitted entirely in cassette C1. D. Received in formalin labeled with the patient's name, , and distal esophagus biopsy, and consists of multiple mccabe soft tissue fragments aggregating to 0.9 x 0.5 x 0.1 cm. Filtered and submitted entirely in cassette D1. ([id number]) /JOYCE 07/17/2023 1359 Local . 01 Pathologist provided ICD-10: K21.00, K29.50, K29.80 . 01 CPT . 425849, 791742, 331708, 914894, [id number], [id number] Specimen Comment: A courtesy copy of this report has been sent to [phone] Performed at: 01 [facility] [address] [place] [address], [place], [place] [id number] MD Michael Echols MD Phone: [phone]
[2023-07-11] MEDS: LACTATED RINGERS 1,000 ML 42 ML IV (14:06)
[2023-07-11 14:20] VITALS: BP 151/89; PULSE 74; RESP 18; TEMP 36.3; O2SAT 100
--- NOTE | 2023-07-11 14:48 | PM.HP.1 ---
History of Present Illness History of Present Illness Date Patient Seen: 07/11/23 Time Patient Seen: 14:48 Chief complaint: SDC Narrative: Sheyla is here for her EGD and colonoscopy. No changes since I saw her in May. See office note for details. [facility] Medical History HPV (human papilloma virus) anogenital infection Cervical spine arthritis with nerve pain Multiple sclerosis Depression Hyperlipidemia Hypertension Insulin dependent type 2 diabetes mellitus COPD (chronic obstructive pulmonary disease) Surgical History Status post decompression of compartment syndrome Family History Father Medical history unknown Mother Alzheimer's dementia Grandmother Alzheimer's dementia Brother Diabetes mellitus Brain tumor Social History household members: children Smoking Status: Current every day smoker alcohol intake: never Meds Home Medications and Allergies Home Medications Medication Instructions Recorded Confirmed Type albuterol sulfate 90 mcg/actuation 1 puff inhalation PRN PRN SOB #8 07/15/18 05/13/23 History aerosol inhaler (ProAir HFA) grams fluticasone propionate 50 50 mcg intranasal 1-2XD #16 grams 07/15/18 07/11/23 History mcg/actuation nasal spray,suspension (Allergy Relief (fluticasone)) Saccharomyces boulardii 250 mg 250 mg PO BID 05/13/23 05/13/23 History capsule (Florastor) bupropion HCl 300 mg 24 hr tablet, 300 mg PO DAILY 05/13/23 07/11/23 History extended release (Wellbutrin XL) cyclobenzaprine 10 mg tablet 10 mg PO TID PRN 05/13/23 05/13/23 History insulin glargine 100 unit/mL (3 34 unit SUBCUT DAILY 05/13/23 07/11/23 History mL) subcutaneous pen (Lantus Solostar U-100 Insulin) interferon beta-1a 30 mcg/0.5 mL 7.5 mcg IM QWEEK 05/13/23 07/11/23 History intramuscular pen injector (Avonex) lisinopril 20 mg tablet 20 mg PO DAILY 05/13/23 07/11/23 History metformin 500 mg tablet 1,000 mg PO BID #120 tabs 05/13/23 07/11/23 History omeprazole 20 mg capsule,delayed 20 mg PO DAILY 05/13/23 05/13/23 History release prazosin 2 mg capsule 2 mg PO BEDTIME 05/13/23 05/13/23 History rizatriptan 10 mg tablet See Rx Instructions PO .COMPLEX 05/13/23 07/11/23 History rosuvastatin 10 mg tablet 10 mg PO DAILY 05/13/23 07/11/23 History Allergies Allergy/AdvReac Type Severity Reaction Status Date / Time acetaminophen [From Vicodin] Allergy Verified 07/11/23 14:08 cephalexin Allergy Verified 07/11/23 14:08 ciprofloxacin [From Cipro] Allergy Verified 07/11/23 14:08 codeine Allergy Verified 07/11/23 14:08 doxycycline Allergy Verified 07/11/23 14:08 hydrocodone [From Vicodin] Allergy Verified 07/11/23 14:08 penicillin V Allergy Verified 07/11/23 14:08 sulfamethoxazole Allergy Verified 07/11/23 14:08 [From Bactrim] trimethoprim [From Bactrim] Allergy Verified 07/11/23 14:08 Exam Vital Signs (past 8 hours): - 07/11/23 14:20 Temperature 97.3 F L Pulse Rate 74 Respiratory Rate 18 Blood Pressure 151/89 H Pulse Oximetry 100 Oxygen Delivery Method Room Air Oxygen Delivery Method Room Air Resp Effort & Inspection: normal respiratory effort Assessment & Plan Assessment and plan (1) Colon cancer screening: Status: Acute (2) Dysphagia: Qualifiers: Dysphagia type: unspecified Qualified Code(s): R13.10 - Dysphagia, unspecified Status: Acute Plan Plan to proceed with EGD for dysphagia and colonoscopy for colon cancer screening.
--- NOTE | 2023-07-11 15:46 | P.OP.EGD&C_ITS ---
Operative Date/Time/Diagnoses Date of procedure: 07/11/23 Time of procedure: 15:46 Pre-op diagnosis: Dysphagia and colon cancer screening Post-op diagnosis: same Procedure & Clinicians Study performed: Esophagogastroduodenoscopy and colonoscopy Same procedure as scheduled: Yes Surgeon: Frederick Norman Procedure Notes Procedure in detail: Surgeon: Frederick Norman MD Anesthesia: Lina Paniagua D.O. Procedure in detail: A timeout was performed. A bite blocked was placed and monitors were attached to the patient. The patient was positioned in the left lateral decubitus position. Sedation was administered. Once the patient was sedated the endoscope was inserted through the bite block and passed through the esophagus and stomach and into the duodenum. There was duodenitis and random biopsies were taken with the cold forceps. We then withdrew the scope into the stomach. There was moderate antritis and random biopsies were taken from the antrum with cold forceps. The endoscope was retroflexed and was a moderate- sized hiatal hernia and there was an ulceration in the mucosa the level of the hiatus. Biopsies were taken from this mucosa with cold forceps and called ?fundus?. The endoscope was straightned and withdrawn into the esophagus. There were islands of salmon-colored mucosa in the distal esophagus and they were biopsied with cold forceps biopsies and sent as ?distal esophagus?. The rest of the esophagus was normal. EGD findings: Duodenitis, antritis and distal esophagitis with salmon-colored patches mucosa Next we repositioned the patient for a colonoscopy. A digital rectal exam was performed and was normal. The colonoscope was inserted and advanced to the cecum. The appendiceal orifice was identified and photographed. The scope was slowly withdrawn over greater than 6 minutes. No abnormalities were found. The scope was retroflexed in the rectum and no abnormalities were seen. Colonoscopy findings: Normal colon Total procedural EBL: 10 mL Scope withdrawal time: 8 minutes Sedation minutes: 36 minutes Post-procedure Recommendations: Colonscopy in 10 years Disposition: PACU
[2023-07-11 15:49] VITALS: BP 110/65; PULSE 89; RESP 16; TEMP 37.3; O2SAT 98
[2023-07-11 15:52] VITALS: BP 109/78; PULSE 83; RESP 16; O2SAT 98
[2023-07-11 15:59] VITALS: BP 130/86; PULSE 90; RESP 16; TEMP 36.9; O2SAT 92
== END 2023-07-11 16:13 | disposition home or self-care (01) ==
PROVIDERS: Family Provider Nurse Practitioner Family; PCP Nurse Practitioner Family; Referring Provider Surgery; Visit Provider Surgery
PROC: 0DJ08ZZ Inspection of Upper Intestinal Tract, Via Natural or Artificial Opening Endoscopic (ICD-10-PCS; CPT 43235; principal; 2023-07-11 14:30)
PROC: 0DJD8ZZ Inspection of Lower Intestinal Tract, Via Natural or Artificial Opening Endoscopic (ICD-10-PCS; CPT 45378; 2023-07-11 14:30)
DX: Z12.11 Encounter for screening for malignant neoplasm of colon (principal); R13.10 Dysphagia, unspecified; K29.80 Duodenitis without bleeding; K29.50 Unspecified chronic gastritis without bleeding; K20.90 Esophagitis, unspecified without bleeding
CPT/HCPCS: 45378; 43239; 82962; J2704

== ENCOUNTER → 2023-09-23 08:45 | Outpatient (CLI) | payer OTHER, MEDICAID, SELFPAY ==
[2023-04-18 14:40] VITALS: BMI 29.0
--- NOTE | 2023-09-23 08:46 | DI.RAD.S_ITS ---
PROCEDURE: XR CERVICAL SPINE 4V OR 5V INDICATIONS: NECK PAIN TECHNIQUE: 5 views of the cervical spine acquired. COMPARISON: None. FINDINGS: Bones: No fractures or dislocations to the T1 level. Oblique images demonstrate no bony foraminal stenoses on the left. On the right, oblique images are nondiagnostic Degenerative disc disease and hypertrophic facet joints results in grade 1 anterior spondylolisthesis at C3-4 and C4-5. Soft tissues: No prevertebral soft tissue swelling. IMPRESSION: Degenerative disc disease and arthropathy associated with grade 1 anterior spondylolisthesis C3-4 and C4-5 Approved by: Joni Schneider M.D. on 09/23/2023 at 15:58
--- NOTE | 2023-09-23 08:46 | DI.RAD.S_ITS ---
PROCEDURE: XR LUMBAR SPINE MIN 4V INDICATIONS: LOW BACK PAIN TECHNIQUE: 5 views of the lumbar spine acquired, including flexion and extension views. COMPARISON: None. FINDINGS: Bones: 5 nonrib-bearing vertebrae are present. No vertebral body compression fractures. No suspicious bony lesions. Convex right thoracolumbar scoliosis. Diffuse disc space narrowing and hypertrophic facet joints present throughout the exam with marginal osteophytes Soft tissues: Overlying bowel gas pattern is normal. No suspicious soft tissue calcifications. Fallopian tube occlusion devices noted in the pelvis Flexion/extension: There is normal range of motion, with preserved normal alignment. IMPRESSION: Degenerative disc disease, arthropathy and thoracolumbar dextroscoliosis Approved by: Joni Schneider M.D. on 09/23/2023 at 15:52
== END ==
PROVIDERS: Family Provider Nurse Practitioner Family; PCP Nurse Practitioner Family; Referring Provider Anesthesiology; Visit Provider Anesthesiology
DX: M47.812 Spondylosis without myelopathy or radiculopathy, cervical region (principal); M50.30 Other cervical disc degeneration, unspecified cervical region; M43.12 Spondylolisthesis, cervical region; M51.36 Other intervertebral disc degeneration, lumbar region; M47.816 Spondylosis without myelopathy or radiculopathy, lumbar region; M41.9 Scoliosis, unspecified; M54.50 Low back pain, unspecified
CPT/HCPCS: 72050; 72110

== ENCOUNTER → 2023-11-04 08:39 | Outpatient (CLI) | payer OTHER, MEDICAID, SELFPAY ==
[2023-04-18 14:40] VITALS: BMI 29.0
--- NOTE | 2023-11-04 08:40 | DI.RAD.S_ITS ---
PROCEDURE: FL BARIUM SWALLOW W SPEECH INDICATIONS: Other dysphagia COMPARISON: TECHNIQUE: Examination was conducted in conjunction with speech pathology per standard protocol. In the lateral projection, filming was performed of the patient swallowing. AP projection filming may also be performed with patient swallowing. COMPARISON: [facility], CT, CT SOFT TISSUE NECK W CON, 01/15/2021, 20:49. [facility], CR, XR CERVICAL SPINE 4V OR 5V, 09/23/2023, 8:57. FINDINGS: Function: The oral preparatory phase appears normal. Oral containment is mildly diminished. Mild vallecular pooling. The subsequent oral propulsive phase, pharyngeal phase, and esophageal phase of swallowing also appear normal with all proffered substances. No laryngotracheal penetration or aspiration. No pathologic vallecular pooling. Morphology: No cricopharyngeal bar is identified. No cervical esophageal webs. No Zenker's diverticulum. No strictures. There is intra esophageal reflux. IMPRESSION: No aspiration. Mild vallecular pooling. Intraesophageal reflux. Please see separately dictated speech pathologist's report. Dictated by: Venkata Bedoya M.D. on 11/04/2023 at 17:28 Approved by: Venkata Bedoya M.D. on 11/04/2023 at 17:33
--- NOTE | 2023-11-04 12:17 | ST.SWALLOW ---
Visit Care Team Role Provider Type ANNEL Rehman Attending Provider Non-Staff Family Provider Primary Care Provider Referring Provider Specialty: Nursing [address]: [address] [place] [address], [id number] Email: Modified Barium Swallow Study [employer]IVE Modified Barium Swallow Study Start: 11/04/23 11:30 Freq: Status: Active Protocol: Document 11/04/23 11:30 LNK (Rec: 11/04/23 12:17 [id number]) Modified Barium Swallow Study Total Time Visit Start Time 09:00 Visit Stop Time 09:30 Total Visit Minutes 30 Referral Referring Physician Diana Rodriguez Reason for Referral dysphagia; pain with swallowing Setting Setting Outpatient Care Patient Information Identification Type Name,Date of Patient History Pt is a 57 year old female seen for Modified Barium Swallow Study.Pt reported PMH of MS in 2003. Additionally, pt's PMH includes: HPV (human papilloma virus), cervical spine arthritis with nerve pain, depression, hyperlipidemia, HTN, IDDM type 2 - insulin dependent, GERD and COPD. Pt has history of smoking; she continues to smoke and vape. Pt states she has been having swallowing difficulties for a few years now and specifically states: It hurts when I swallow. She reports this pain can get up to a 6/7 and that it fluctuates and states that sometimes she has no pain at all. She reports no pain when drinking liquids or taking medications/pills. Pt had an EGD performed on 07/10 with the following impressions: Duodenitis, antritis and distal esophagitis with salmon- colored patches mucosa. Pt noted she has regurgitaed undigested foods into hermouth /throat after initial swallow. Pt had an EGD performed on 07/10 with the following impressions: Duodenitis, antritis and distal esophagitis with salmon- colored patches mucosa. Subjective Observations Pt was seated in the fluoroscopy chair with directions and procedures described for her. She indicated she understood and agreed to proceed. Patient Positioning Position View Lat-A/P Imaging Lateral View Textures Administered Trials Presented Thin Liquid via Spoon (IDDSI 0 ),Thin Liquid via Cup (IDDSI 0 ),Extremely Thick Liquid via Spoon (IDDSI 4),Regular (IDDSI 7) Barium Tablet Yes The IDDSI Framework Protocol: IDDSI.1 Oral Impairment Source: The Modified Barium Swallow Impairment Profile (MBSImP??) Lip Closure Interlabial escape; no progression to anterior lip Tongue Control During Bolus Hold Cohesive bolus between tongue to palatal seal Bolus Preparation/Mastication Timely & efficient chewing & mashing Bolus Transport/Lingual Motion Brisk tongue motion Oral Residue Complete oral clearance Initiation of Pharyngeal Swallow Bolus head at pyriforms Additional Oral Impairment Observations Oral phase of swallowing WNL: -OME and DKS were observed to be WNL. Pt had upper denture only as her lower arch has several francine that are irritated by lower denture -Mastication observed with rotary chew pattern. -Good bolus formation, control and AP transition. Pharyngeal Impairment Source: The Modified Barium Swallow Impairment Profile (MBSImP??) Soft Palate Elevation No bolus between soft palate & pharyngeal wall Laryngeal Elevation Comp.sup.move.thyroid cart.w/ comp.approx.arytenoids to epiglot petiole Anterior Hyoid Excursion Partial anterior movement Epiglottic Movement Complete inversion Laryngeal Vestibular Closure Complete; no air/contrast in laryngeal vestibule Pharyngeal Stripping Wave Present - complete Pharyngoesophageal Segment Opening Partial distention/partial duration; partial obstruction of flow Tongue Base Retraction Trace column of contrast/air betwn tongue base & post. pharyngeal wall Pharyngeal Residue Trace residue within/on pharyngeal structures Location Tongue base Additional Pharyngeal Impairment -Cervical osteophyte noted (C5) Observations at level of the UES, altering/narrowing UES opening Pharyngeal phase of swallowing WNL A/P View Textures Administered Trials Presented Thin Liquid via Cup (IDDSI 0) The IDDSI Framework Protocol: IDDSI.1 A/P View Observations Pharyngeal Contraction Complete Esophageal Clearance Upright Position Esophageal retention w/ regtrograde flow below pharyngoesoph segment Vocal Fold Function Good Esophageal Function Slowed Clearing,Reverse Peristalsis,Stasis Additional A-P Observations -Esophageal retention observed , with pt describing pain and a sensation of globus when pt position changed from lateral to AP. This cleared with water wash. -Esophageal retention of solid /cookie trial in AP with slowed clearing and retro-flow noted below the UES -Thin liquid and barium tablet trials cleared to the stomach in a timely manner Clinical Impressions Dysphagia Type Esophageal Findings Please review AP Observations above Patient Appropriate for Therapy Swallowing therapy not indicated Recommendations Diet Comments No diet change recommended at this time Aspiration Precautions Recommended Precautions Upright at 90 Degrees, Alternate Liquids/Solids,Small Bites/Sips Treatment Plan Recommended Referrals GI Consult
== END ==
PROVIDERS: Family Provider Nurse Practitioner Family; PCP Nurse Practitioner Family; Referring Provider Nurse Practitioner Family; Visit Provider Nurse Practitioner Family
DX: R13.19 Other dysphagia (principal); K21.9 Gastro-esophageal reflux disease without esophagitis
CPT/HCPCS: 74230; 92611